=== PATIENT | male | born 1950 | race Caucasian/White ===

== ENCOUNTER 2020-10-30 09:50 | Outpatient (REF) | payer MEDICARE, BC, SELFPAY ==
[2020-10-30 10:54] LABS: Blood Urea Nitrogen 22 mg/dL (9-16); Estimated Glomerular Filt Rate > 60
== END 2020-10-30 09:51 | disposition home or self-care (01) ==
LOC: HO.MDS 09:50
PROVIDERS: PCP Internal Medicine; Visit Provider Internal Medicine
DX: M81.0 Age-related osteoporosis without current pathological fracture (principal)
CPT/HCPCS: 82565; 84520; 96365; J3489

== ENCOUNTER → 2021-01-08 12:36 | Outpatient (REF) | payer MEDICARE, BC, SELFPAY ==
--- NOTE | 2021-01-08 12:41 | CA_ITS ---
Transthoracic Echocardiogram Patient (Last, First, Middle): Speedy Hernandez J Gender: Male Date of : 1950 Age: 70 Procedure Date: 01/08/2021 Procedure Type: Transthoracic Echocardiogram Location: OP Height: 182.88 cm Weight: 68.04 kg BSA: 1.89 m2 Heart Rate: bpm BP: 118 / 60 mmHg Ginner Helper: Referring MD: Dandre Dobbins MD Symptoms: NON-RHEUMATIC REGURGITATION, PULMONARY HYPERTENSION. Study Quality: Good ECG Rhythm: Sinus Conclusions: - Severely increased left ventricular cavity size. The left ventricular systolic function is normal. The visually estimated ejection fraction is between 60-65%. - Mildly increased right ventricular cavity size. - The left atrium is severely dilated. - There is a flail posterior mitral leaflet. There is severe mitral valve regurgitation. - Moderate pulmonary hypertension is present. Findings Left Ventricle Severely increased left ventricular cavity size. There is mildly increased left ventricular wall thickness. The left ventricular systolic function is normal. The visually estimated ejection fraction is between 60-65%. There is no evidence of regional wall motion abnormalities. E/E prime ratio is >15, consistent with elevated filling pressures. Evidence suggests grade II (moderate) diastolic dysfunction. Right Ventricle Mildly increased right ventricular cavity size. There is normal right ventricular systolic function. Atria The left atrium is severely dilated. Interatrial shunt cannot be excluded. The right atrium is mildly dilated. Aortic Valve There is a normal trileaflet aortic valve. There is no aortic valve stenosis. There is mild aortic valve regurgitation. Mitral Valve The mitral valve appears myxomatous. There is a flail posterior mitral leaflet. There is severe mitral valve regurgitation. The mitral regurgitation jet is directed anteriorly. There is no mitral valve stenosis. Pulmonic Valve The pulmonic valve was not well visualized. Tricuspid Valve Normal tricuspid valve structure. There is trace tricuspid valve regurgitation. The right ventricular systolic pressure is 48 mmHg. Moderate pulmonary hypertension is present. Great Vessels The aortic annulus, sinuses of valsalva, and asc aorta are normal in size. Venous The inferior vena cava is normal in size and collapses greater than 50% with inspiration. Pericardium/Pleural There is a small pericardial effusion. Prior Study Comparison Changes noted compared to prior study dated: 01/04/2020. Further increase in left ventricular size. Measurements 2D Linear Measurements IVSd: 1.20 0.6-0.9/0.6-1.0 cm LVIDd: 6.53 3.9-5.3/4.2-5.9 cm LVIDd Index: 3.46 2.4-3.2/2.2-3.1 cm/m2 LVIDs: 4.67 2.0-3.6 cm LVPWd: 1.22 0.7-1.1 cm Ao Root: 3.20 2.1-3.5 cm LA Diam: 6.30 2.7-3.8/3.0-4.0 cm LAIDs Index: 3.33 1.5-2.3 cm/m2 LV Mass: 456.01 67-162/88-224 g LV Mass Index: 241.28 43-95/49-115 g/m2 LVOT Diam: 2.20 3.0+(-)1.3 cm 2D Systolic Function EF 4C: 67.50 >55% EF 2C: 65.20 >55% EF BiP: 64.40 >55% Mitral Valve MV VTI: 0.80 MV Pk Buddy: 2.47 MV Mn Buddy: 1.65 MV Pk Grad: 24.00 MV Mn Grad: 17.00 MV Pk E: 1.33 MV PK A: 0.59 MV Decel Time: 88.00 E/A: 2.20 E'Lateral: 12.20 E'Medial: 5.80 E/E' Med: 22.90 E/E' Lat: 10.90 PHT: 26.00 MVA PHT: 8.46 Decel Titus: 15.15 MR Vol - PW Dopp: 64.26 MR VTI: 1.19 MR ERO: 54.00 MR Alias Buddy: 0.38 MR RAD: 0.90 Aortic Valve AoV Pk Buddy: 1.20 AoV Mn Buddy: 0.77 AoV VTI: 0.28 AoV Pk Grad: 6.00 Aov Mn Grad: 3.00 LVOT LVOT Diam: 2.20 LVOT Area: 3.80 Diastolic Function MV Pk E: 1.33 MV Pk A: 0.59 E/A: 2.20 E'Medial: 5.80 E/E' Med: 22.90 E' Laterial: 12.20 E/E' Lat: 10.90 Tricuspid Valve TR Pk Buddy: 3.18 TR Pk Grad: 40.00 RA Press: 8.00 RVSP: 48.00 Great Vessels Aorta Ao Root-2D: 3.20 2.0-3.7 cm Ao Asc: 3.30 2.1-3.4 cm Pulmonary Valve PV Pk Buddy: 0.80 Peak PV Grad: 3.00 Updated in Other Vendor System with Status of Final Dandre Dobbins MD electronically signed on 01/09/2021 11:40:37 AM with status of Final
== END ==
LOC: HO.CARD 12:36
PROVIDERS: Visit Provider Internal Medicine
DX: I34.0 Nonrheumatic mitral (valve) insufficiency (principal); I27.20 Pulmonary hypertension, unspecified
CPT/HCPCS: 93306

== ENCOUNTER → 2021-02-07 12:18 | Outpatient (BNVA) | payer MEDICARE, BC, SELFPAY | PROVIDERS: PCP Internal Medicine; Visit Provider Internal Medicine | DX: I34.1 Nonrheumatic mitral (valve) prolapse (principal); I34.0 Nonrheumatic mitral (valve) insufficiency; I27.20 Pulmonary hypertension, unspecified | CPT/HCPCS: 93005; 99212 ==

== ENCOUNTER 2021-04-15 10:26 | Outpatient (REF) | payer MEDICARE, BC, SELFPAY ==
[2021-04-15 10:40] LABS: MANUAL DIFF FLAG NO
[2021-04-15 11:08] LABS: Basophils Percent Auto 0.8 % (0-2); Eosinophils Absolute Auto 0.3 X10*3/uL (0.0-0.4); Hematocrit 45.1 % (42-52); Hemoglobin 14.5 g/dl (14.0-18.0); Imm Gran Abs Auto 0.01 X10*3/uL (0.00-0.03); Imm Gran Pct Auto 0.2 % (0.0-0.4); Lymphocytes Absolute Auto 1.7 X10*3/uL (1.2-4.9); Lymphocytes Percent Auto 34.8 % (20-40); Mean Corpuscular HGB Conc 32.2 g/dl (31.0-36.0); Mean Corpuscular Hemoglobin 28.8 pg (27.0-33.0); Mean Corpuscular Volume 89.7 fL (80-98); Mean Platelet Volume 10.7 fL (9.4-12.4); Monocytes Absolute Auto 0.5 X10*3/uL (0.1-1.2); Monocytes Percent Auto 9.8 % (2-11); Neutrophils Absolute Auto 2.5 X10*3/uL (2.0-8.3); Neutrophils Percent Auto 49.4 % (45-73); Platelet Count 153 X10*3/uL (160-400); Red Blood Count 5.03 X10*6/uL (4.60-5.80); Red Cell Distribution Width 13.4 % (11.0-16.0)
[2021-04-15 11:42] LABS: Glucose Urine UA NEG (NEG); Leukocyte Esterase Urine NEG (NEG); Nitrite Urine NEG (NEG); Specific Gravity - Urine 1.025 (1.005-1.025); Urine Blood NEG (NEG); Urine Ketones NEG (NEG); Urine Protein NEG (NEG-TRACE)
[2021-04-15 11:54] LABS: Appearance Urine CLEAR; Color Urine YELLOW
[2021-04-15 12:10] LABS: Alanine Aminotransferase 15 U/L (0-40); Albumin Level 4.4 g/dL (3.5-5.0); Alkaline Phosphatase 66 U/L (39-117); Anion Gap 12 (12-20); Aspartate Amino Transferase 22 U/L (5-37); Bilirubin Total 0.9 mg/dL (0.0-1.0); Blood Urea Nitrogen 18 mg/dL (9-16); Calcium 8.9 mg/dL (8.4-10.2); Carbon Dioxide 28 mmol/L (22-29); Chloride 107 mmol/L (96-108); Cholesterol 221 mg/dL; Estimated Glomerular Filt Rate > 60; Glucose Fasting 92 mg/dL (60-99); HDL Cholesterol 50 mg/dL; LDL Cholesterol Calculated 157 mg/dl; Potassium 4.4 mmol/L (3.3-5.1); Sodium 143 mmol/L (135-145); Total Protein 6.9 g/dL (6.5-8.0); Triglycerides 74 mg/dL
[2021-04-15 12:19] LABS: PSA,Total (Free>4and<10) 1.31 ng/mL (0.00-4.00); Vitamin D 25-OH Total 39.8 ng/mL (>30)
== END 2021-04-15 10:27 | disposition home or self-care (01) ==
LOC: HO.LNP 10:26
PROVIDERS: Visit Provider Internal Medicine
DX: E78.00 Pure hypercholesterolemia, unspecified (principal); M81.0 Age-related osteoporosis without current pathological fracture; R79.89 Other specified abnormal findings of blood chemistry; E55.9 Vitamin D deficiency, unspecified; Z12.5 Encounter for screening for malignant neoplasm of prostate
CPT/HCPCS: 80053; 80061; 81003; 82306; 84153; 85025

== ENCOUNTER → 2021-07-18 11:16 | Outpatient (BNVA) | payer MEDICARE, BC, SELFPAY | PROVIDERS: PCP Internal Medicine; Visit Provider Internal Medicine | CPT/HCPCS: Q3014 ==

== ENCOUNTER → 2021-08-15 12:30 | Outpatient (BNVA) | payer MEDICARE, BC, SELFPAY | PROVIDERS: PCP Internal Medicine; Referring Provider Internal Medicine; Visit Provider Internal Medicine | DX: I34.0 Nonrheumatic mitral (valve) insufficiency (principal); I34.1 Nonrheumatic mitral (valve) prolapse; I27.20 Pulmonary hypertension, unspecified | CPT/HCPCS: 99212 ==

== ENCOUNTER 2021-11-14 09:46 | Inpatient (IN) | payer MEDICARE, BC, SELFPAY ==
[2021-11-14] VITALS (13 sets, daily range): BP systolic 112–144; BP diastolic 65–99; PULSE 83–152; RESP 16–24; TEMP 36.5–37; O2SAT 90–98; BMI 20.3
--- NOTE | ~2021-11-14 | XR_ITS ---
EXAMINATION: XR CHEST CLINICAL INFORMATION: Shortness of breath COMPARISON: None TECHNIQUE: AP portable view of the chest was obtained. FINDINGS: There are bilateral regions of airspace disease most prominent at the lung bases as well as what appeared be small pleural effusions. The cardiopericardial silhouette is enlarged. No evidence of pulmonary edema. No pneumothorax. XR/XR chest 1V IMPRESSION: Cardiomegaly without pulmonary edema. Bilateral regions of airspace disease consistent with pneumonia or atelectatic change. Bilateral pleural effusions right greater than left.
--- NOTE | 2021-11-14 10:20 | ECG_ITS ---
Test Reason : SOB Blood Pressure : / mmHG Vent. Rate : 148 BPM Atrial Rate : 000 BPM P-R Int : 000 ms QRS Dur : 092 ms QT Int : 320 ms P-R-T Axes : 000 094 025 degrees QTc Int : 502 ms Atrial fibrillation with rapid ventricular response Rightward axis Biventricular hypertrophy Abnormal ECG When compared with ECG of 10-APR-2020 15:38, Atrial fibrillation has replaced Sinus rhythm Vent. rate has increased BY 76 BPM Questionable change in QRS axis Nonspecific T wave abnormality now evident in Inferior leads Nonspecific T wave abnormality now evident in Anterolateral leads Referred By: Vanna Patrick Electronically Signed By:AISLINN FORBES MD
--- NOTE | 2021-11-14 10:39 | ED.SOB ---
HPI - SOB/Dyspnea General Chief Complaint: Dyspnea Stated Complaint: diff breathing Time Seen by Provider: 11/14/21 10:12 Source: patient Mode of arrival: ambulatory Limitations: no limitations History of Present Illness HPI Narrative: 70-year-old male with history of moderate mitral regurgitation, pulmonary hypertension, vitamin-D deficiency here with reports of shortness of breath over the last 2 weeks. Initially this was with exertion but now is occurring at rest. There is no associated cough, fever, chest pain or palpitations. Is also having some lower extremity swelling bilaterally with no pain. He denies any weight gain. Related Data Home Medications Medication Instructions Recorded Confirmed fluocinonide-emollient 0.05 % 1 appl TOPICAL BID 02/07/21 11/14/21 topical cream multivitamin 1 tab PO DAILY 11/14/21 11/14/21 Previous Rx's Medication Instructions Recorded calcium carbonate 600 mg calcium 600 mg PO DAILY 30 Days #30 tab 06/10/21 (1,500 mg) tablet Allergies Allergy/AdvReac Type Severity Reaction Status Date / Time No Known Allergies Allergy Verified 08/15/21 12:48 [No Known Allergies*] Review of Systems Review of Systems: Yes all other systems are reviewed and are negative Constitutional: Constitutional: Reports no additional constitutional complaints, Denies body ache(s), Denies chills, Denies fever(s), Denies headache(s) and Denies weakness Eyes: Eyes: Reports no additional eye complaints and Denies change in vision ENT: Reports system reviewed and no additional complaints, except as documented, Denies dizziness, Denies headache(s), Denies nasal congestion, Denies nasal discharge and Denies neck pain Cardiovascular: Cardiovascular: Reports no additional cardiovascular complaints, Denies chest pain, Denies leg edema and Reports dyspnea Respiratory: Respiratory: Reports no additional respiratory complaints, Denies cough and Reports dyspnea Gastrointestinal: Gastrointestinal: Reports no additional gastrointestinal complaints, Denies abdominal pain, Denies diarrhea, Denies nausea and Denies vomiting Genitourinary: Genitourinary: Denies urinary incontinence Musculoskeletal: Musculoskeletal: Reports no additional musculoskeletal complaints, Denies back pain, Denies arthralgias, Denies joint swelling, Denies neck pain, Denies numbness and Denies tingling Integumentary/Breasts: Skin/Breast: Reports system reviewed and no additional complaints, except as docu and Denies rash Neurologic: Reports system reviewed and no additional complaints, except as documented, Denies Abnormal speech present, Denies dizziness, Denies headache(s), Denies numbness, Denies tingling and Denies weakness PMFSH Past Medical History Attestation statement: The following information was validated with the patient. Source: old records reviewed and nursing notes reviewed Medical History Myxomatous mitral valve Nonrheumatic mitral valve regurgitation Osteoporosis Pulmonary hypertension Vitamin D deficiency Surgical History No history of previous surgery Family History Family History Father No problems noted. Mother No problems noted. Social History Social History Patient Tobacco Use Status: Never used Tobacco Use of substances other than those prescribed or required for medical reasons: No Advance Directives: Yes Advance Directives Information Provided: No Advance Directives on File: No Physical Exam Vital Signs: Vital Signs: Last Vital Signs Temp 98.6 F 11/14/21 10:00 Pulse 110 H 11/14/21 14:35 Resp 16 11/14/21 14:35 BP 120/86 11/14/21 14:35 Pulse Ox 96 11/14/21 14:35 BMI result Body Mass Index 20.3 Const: General: cooperative, healthy appearing, comfortable and no acute distress Orientation/consciousness: patient oriented x3 Limitations: no limitations HENMT: Head: Yes normal to inspection Ears: hearing grossly normal bilaterally General nose exam: Normal external nose present Face and sinus: Yes normal facial exam Mouth: Normal oral and palatal mucosa present Throat: Yes posterior oropharynx normal Eyes: General: appearance normal, both eyes and all related structures Pupils: Equal, round and reactive pupils present Neck: Neck: Yes normal visual inspection Chest: Chest palpation & inspection: normal inspection of the chest Resp: Other: Mild tachypnea with a rate of 22 Auscultation: clear to auscultation bilaterally Cardio: Rate: regular rate and tachycardic Rhythm: abnormal rhythm irregularly irregular Peripheral pulses: Peripheral pulses 2+ throughout GI: Inspection: Yes normal to inspection Palpation (GI): Soft to palpation and nontender Auscultation: normal bowel sounds Back/Spine/Pelvis: Thoracic/Lumbar Spine: thoracic and lumbar spine normal to inspection Skin: General skin exam: no rashes or lesions noted Neuro: General: patient oriented x3, no focal motor deficits and normal sensation to monofilament Cranial nerves: Yes Equal, round and reactive pupils present Cognition (Neuro): normal cognition Speech: No Abnormal speech present Gait exam (Neuro): Normal gait present Motor exam (neuro): 5/5 motor strength present throughout Extrem: Other: 1+ Pitting edema to bilateral lower ankles. No calf pain. Palpable distal pulses General: Yes normal to inspection and Yes no calf tenderness Course Course Course Narrative: 70-year-old male here with reports of shortness of breath over the last 2 weeks initially with exertion now a rest. Also some lower extremity swelling with no pain. No waking, cough, fevers, chills, chest pain. On arrival the patient is tachycardic with a rate of 148. It is irregularly irregular. He also has some pitting edema in the bilateral lower ankles 1+ with no calf pain or swelling. Patient will need labs, EKG, chest x-ray, COVID screen. EKG is consistent with AFib with RVR with a rate of 148. Patient has no history of same. Will give 10 mg of IV Cardizem and reassess 1100-chest x-ray shows cardiomegaly, bilateral regions of airspace disease consistent with pneumonia or atelectasis with bilateral pleural effusions right greater the left. Exam is not consistent with pneumonia. There is no fever, productive cough, leukocytosis. This is likely secondary to CHF. Plan for dose of IV Lasix once labs have resulted. Patient heart rate now 120 after 10 mg of IV Cardizem. 1240-troponin is indeterminate. No chest pain. No EKG changes concerning for ACS. Plan for repeat 3 hour troponin. Labs show elevated BNP and LFTs likely secondary to underlying congestive heart failure. Patient's heart rate is now 120-130 despite to IV pushes of Cardizem. Plan for Cardizem drip. Case was discussed with Melissa THURMAN who accepted admission. MDM - SOB/Dyspnea Medical Records Attestation: I reviewed the patient's medical records. Lab Data Attestation: I reviewed the patient's lab results. Result diagrams: 11/14/21 10:45 11/14/21 10:45 Labs: Lab Results 11/14/21 11/14/21 11/14/21 Range/Units 10:45 10:45 10:45 WBC 7.9 (4.8-10.8) X10*3/uL RBC 5.07 (4.60-5.80) X10*6/uL Hgb 14.7 (14.0-18.0) g/dl Hct 45.6 (42.0-52.0) % MCV 89.9 (80.0-98.0) fL MCH 29.0 (27.0-33.0) pg MCHC 32.2 (31.0-36.0) g/dl RDW 14.9 (11.0-16.0) % Plt Count 168 (160-400) X10*3/uL MPV 11.6 (9.4-12.4) fL Immature Gran % (Auto) 0.4 (0.0-0.4) % Neut % (Auto) 75.8 H (45-73) % Lymph % (Auto) 13.3 L (20-40) % [place] % (Auto) 9.1 (2-11) % Eos % (Auto) 0.5 (0-4) % Baso % (Auto) 0.9 (0-2) % Lymph # (Auto) 1.1 L (1.2-4.9) X10*3/uL [place] # (Auto) 0.7 (0.1-1.2) X10*3/uL Eos # (Auto) 0.0 (0.0-0.4) X10*3/uL Baso # (Auto) 0.1 (0.0-0.2) X10*3/uL Abs Immat Gran (auto) 0.03 (0.00-0.03) X10*3/uL Absolute Neuts (auto) 6.0 (2.0-8.3) x10*3/uL Absolute Nucleated RBC 0.000 (0.0-0.012) X10*3/uL Nucleated RBC % (auto) 0.0 (0.0-0.2) /100WBC PT 16.2 H (9.9-13.0) SEC INR 1.4 H (0.9-1.1) Sodium 142 (135-145) mmol/L Potassium 4.3 (3.3-5.1) mmol/L Chloride 112 H (96-108) mmol/L Carbon Dioxide 20 L (22-29) mmol/L Anion Gap 14 (12-20) BUN 28 H (9-16) mg/dL Creatinine 1.24 (0.5-1.4) mg/dL Estim Creat Clear Calc 51.8 Estimated GFR 57 Random Glucose 151 H (60-115) mg/dL Calcium 9.2 (8.4-10.2) mg/dL Magnesium 2.3 (1.6-2.6) mg/dL Total Bilirubin 1.9 H (0.0-1.0) mg/dL Direct Bilirubin 0.7 H (0.0-0.5) mg/dL AST 41 H D (5-37) U/L ALT 48 H (0-40) U/L Alkaline Phosphatase 77 (39-117) U/L Troponin I High Sens (<3.5-35.0) ng/L B-Natriuretic Peptide (<100) pg/mL Total Protein 6.4 L (6.5-8.0) g/dL Albumin 3.9 (3.5-5.0) g/dL COVID-19 (JULIEN) (Negative) COVID-19 Clin Com 11/14/21 11/14/21 Range/Units 10:45 10:46 WBC (4.8-10.8) X10*3/uL RBC (4.60-5.80) X10*6/uL Hgb (14.0-18.0) g/dl Hct (42.0-52.0) % MCV (80.0-98.0) fL MCH (27.0-33.0) pg MCHC (31.0-36.0) g/dl RDW (11.0-16.0) % Plt Count (160-400) X10*3/uL MPV (9.4-12.4) fL Immature Gran % (Auto) (0.0-0.4) % Neut % (Auto) (45-73) % Lymph % (Auto) (20-40) % [place] % (Auto) (2-11) % Eos % (Auto) (0-4) % Baso % (Auto) (0-2) % Lymph # (Auto) (1.2-4.9) X10*3/uL [place] # (Auto) (0.1-1.2) X10*3/uL Eos # (Auto) (0.0-0.4) X10*3/uL Baso # (Auto) (0.0-0.2) X10*3/uL Abs Immat Gran (auto) (0.00-0.03) X10*3/uL Absolute Neuts (auto) (2.0-8.3) x10*3/uL Absolute Nucleated RBC (0.0-0.012) X10*3/uL Nucleated RBC % (auto) (0.0-0.2) /100WBC PT (9.9-13.0) SEC INR (0.9-1.1) Sodium (135-145) mmol/L Potassium (3.3-5.1) mmol/L Chloride (96-108) mmol/L Carbon Dioxide (22-29) mmol/L Anion Gap (12-20) BUN (9-16) mg/dL Creatinine (0.5-1.4) mg/dL Estim Creat Clear Calc Estimated GFR Random Glucose (60-115) mg/dL Calcium (8.4-10.2) mg/dL Magnesium (1.6-2.6) mg/dL Total Bilirubin (0.0-1.0) mg/dL Direct Bilirubin (0.0-0.5) mg/dL AST (5-37) U/L ALT (0-40) U/L Alkaline Phosphatase (39-117) U/L Troponin I High Sens 23.4 (<3.5-35.0) ng/L B-Natriuretic Peptide 813 H (<100) pg/mL Total Protein (6.5-8.0) g/dL Albumin (3.5-5.0) g/dL COVID-19 (JULIEN) Negative (Negative) COVID-19 Clin Com See Note Imaging Data Chest x-ray: Attestation: I personally reviewed and interpreted this imaging study as follows: Radiologist's impression: [address] [address] XRay Report Signed Patient: Speedy Hernandez MR#: [id number] : 1950 Acct:[id number] Age/Sex: 70 / M ADM Date: 11/14/21 Loc: [facility].ED Attending Dr: Ordering Physician: Vanan Patrick NP Date of Service: 11/14/21 Procedure(s): XR chest 1V Accession Number(s): [id number] cc: Vanna Patrick NP~ EXAMINATION: XR CHEST CLINICAL INFORMATION: Shortness of breath COMPARISON: None TECHNIQUE: AP portable view of the chest was obtained. FINDINGS: There are bilateral regions of airspace disease most prominent at the lung bases as well as what appeared be small pleural effusions. The cardiopericardial silhouette is enlarged. No evidence of pulmonary edema. No pneumothorax. XR/XR chest 1V IMPRESSION: Cardiomegaly without pulmonary edema. ? Bilateral regions of airspace disease consistent with pneumonia or atelectatic change. ? Bilateral pleural effusions right greater than left. ECG Data Attestation: I personally reviewed and interpreted this ECG as follows: ECG interpretation date: 11/14/21 ECG interpretation time: 10:27 Interpretation: AFib with RVR with a rate 148, normal QRS, normal QT Critical Care Time Critical Care Time Critical Care Time: Yes Total Critical Care Time: 30 Attestation: Multiple re-evaluations for tachycardia Discharge Plan Discharge Clinical Impression: Congestive heart failure, A-fib Patient Disposition: Admitted As Inpatient
[2021-11-14] MEDS: dilTIAZem HCL 50 MG/10 ML VIAL 10 MG IVPUSH ×2 (10:50→11:32)
[2021-11-14 10:51] LABS: MANUAL DIFF FLAG NO
[2021-11-14 10:52] LABS: Basophils Absolute Auto 0.1 X10*3/uL (0.0-0.2); Basophils Percent Auto 0.9 % (0-2); Eosinophils Percent Auto 0.5 % (0-4); Hematocrit 45.6 % (42.0-52.0); Hemoglobin 14.7 g/dl (14.0-18.0); Imm Gran Abs Auto 0.03 X10*3/uL (0.00-0.03); Imm Gran Pct Auto 0.4 % (0.0-0.4); Lymphocytes Absolute Auto 1.1 X10*3/uL (1.2-4.9); Lymphocytes Percent Auto 13.3 % (20-40); Mean Corpuscular HGB Conc 32.2 g/dl (31.0-36.0); Mean Corpuscular Volume 89.9 fL (80.0-98.0); Mean Platelet Volume 11.6 fL (9.4-12.4); Monocytes Absolute Auto 0.7 X10*3/uL (0.1-1.2); Monocytes Percent Auto 9.1 % (2-11); Neutrophils Percent Auto 75.8 % (45-73); Platelet Count 168 X10*3/uL (160-400); Red Blood Count 5.07 X10*6/uL (4.60-5.80); Red Cell Distribution Width 14.9 % (11.0-16.0); White Blood Count 7.9 X10*3/uL (4.8-10.8)
--- NOTE | 2021-11-14 10:52 | PC.NURSE ---
Pt reports sob x 1 week, also reports cough with white sputum. no fevers. denies dizziness. skin pwd. rapid a fib on tele rate up to 150. Speech is clear. speaking full sentences. labs sent, iv established and cardizem given as ordered, rate now noted in 120s
--- NOTE | 2021-11-14 10:55 | PC.NURSE ---
per pt new left lower ext swelling, pitting +2
--- NOTE | 2021-11-14 10:59 | PHA.MEDREC ---
Pharmacy Consult ? Medication Reconciliation Pharmacy has completed the medication reconciliation. Brittanie WolfeD BCPS
[2021-11-14 11:04] LABS: INTERNATIONAL NORM RATIO 1.4 (0.9-1.1); Prothrombin Time 16.2 SEC (9.9-13.0)
[2021-11-14 11:10] LABS: COVID-19 Test Negative (Negative); IDNOW Serial# 08D9AD1C
[2021-11-14 11:14] LABS: Alanine Aminotransferase 48 U/L (0-40); Albumin Level 3.9 g/dL (3.5-5.0); Alkaline Phosphatase 77 U/L (39-117); Anion Gap 14 (12-20); Aspartate Amino Transferase 41 U/L (5-37); Bilirubin Direct 0.7 mg/dL (0.0-0.5); Bilirubin Total 1.9 mg/dL (0.0-1.0); Blood Urea Nitrogen 28 mg/dL (9-16); Calcium 9.2 mg/dL (8.4-10.2); Carbon Dioxide 20 mmol/L (22-29); Chloride 112 mmol/L (96-108); Creatinine Clr Calc Pharmacy 51.8; Estimated Glomerular Filt Rate 57; Glucose Random 151 mg/dL (60-115); Magnesium 2.3 mg/dL (1.6-2.6); Potassium 4.3 mmol/L (3.3-5.1); Sodium 142 mmol/L (135-145); Total Protein 6.4 g/dL (6.5-8.0)
[2021-11-14 11:21] LABS: B Type Natriuretic Peptide 813 pg/mL (<100); Troponin-I High Sensitivity 23.4 ng/L (<3.5-35.0)
[2021-11-14] MEDS: Furosemide 40 MG/4 ML VIAL IVPUSH (11:32)
[2021-11-14] MEDS: dilTIAZem HCL 125 MG in 0.9 % Sodium Chloride 100 ML 10 MG IVCONT (13:13)
--- NOTE | 2021-11-14 13:38 | PM.IMHP ---
History of Present Illness Date of Service: 11/14/21 Chief Complaint: Shortness of breath 70-year-old male with history o mixamatous mitral valve, moderate mitral regurgitation, pulmonary hypertension, vitamin-D deficiency he sees Dr. Dobbins and last seen in the office in July. He presents with dyspnea, ongoing for nearly 2 weeks with non-exertional and exertional. He has PND and orthopnea, and slighly swelling in the legs. He repors no palpiation or chest pain and yet noted to be in AFIB with RVR, HR in 130 and normal blood pressure. BNP level is around 800, CXR shows moderate bilateral pelural effusion. He has received IV cardizem bolus with HR still on high side and is being initiated on cardizem drip. Review of Systems Review of Systems: Gen: no fever Resp: + sob, no cough CV: no chest, +[place], leg edema GI: No n/v, no abd pain Neuro: No confusion Yes all other systems are reviewed and are negative [facility] Medical History Myxomatous mitral valve Nonrheumatic mitral valve regurgitation Osteoporosis Pulmonary hypertension Vitamin D deficiency Family History Father No problems noted. Mother No problems noted. Surgical History No history of previous surgery Social History Household Members: Family Housing: House Do you presently have visiting nurse or other home services: No Patient Tobacco Use Status: Never used Tobacco Use of substances other than those prescribed or required for medical reasons: No Currently Displaying Signs/Symptoms of Drug Intoxication Withdrawal: No Any prior treatment program specific to substance use: No Have you been hit, kicked, punched, or otherwise hurt by someone within the past year? If so, by whom?: No Do you feel safe in your current relationship?: No Is there a partner from a previous relationship who is making you feel unsafe now?: No Are you made to feel afraid or neglected: No Spiritual Healthcare Practices: church Advance Directives: Yes Advance Directives Information Provided: No Advance Directives on File: No Advance Directives Date on File: 11/13/21 Do you have thoughts of harming others: None Do you have a plan to hurt others: No Plan Recently lost weight without trying: No Eating poorly because of decreased appetite: No Nutrition Risks: No Nutritional Risk Poor oral hygiene: No Meds Allergies Allergy/AdvReac Type Severity Reaction Status Date / Time No Known Allergies Allergy Verified 08/15/21 12:48 [No Known Allergies*] Active Medications: Current Medications Acetaminophen (Acetaminophen 325 Mg Tablet) 650 mg PO Q6H PRN PRN Reason: Pain, Mild (Pain Scale 1-3) Diltiazem HCl 125 mg/ Sodium (Chloride) 125 mls @ 0 mls/hr IVCONT .Q0M [facility]; Protocol Last Admin: 11/14/21 13:13 Dose: 10 mg/hr, 10 mls/hr Documented by: Melatonin (Melatonin 3 Mg Tablet) 6 mg PO BEDTIME PRN PRN Reason: Insomnia Pharmacy Consult (Consult Rx Perform Med Rec) 1 each MISCELLANE ONCE PRN PRN Reason: Consult order Sodium Chloride (0.9 % Sodium Chloride Flush 3 Ml Syringe) 3 [facility] Home Medications Medication Instructions Recorded Confirmed Last Taken Type fluocinonide-emollient 0.05 % 1 appl TOPICAL BID 02/07/21 11/14/21 11/14/21 History topical cream multivitamin 1 tab PO DAILY 11/14/21 11/14/21 11/13/21 History Physical Exam Vital Signs and Narrative: Vital Signs: Last Vital Signs Temp 98.6 F 11/14/21 10:00 Pulse 127 H 11/14/21 13:18 Resp 16 11/14/21 13:18 BP 129/82 11/14/21 13:18 Pulse Ox 98 11/14/21 13:18 BMI result Body Mass Index 20.3 Const: Other: Constitutional: Alert, in no distress, Mental Status: Oriented to person, place and time. Eyes: Pupils are equal, round and reactive to light. Ear, Nose and Throat: Oropharynx clear, mucous membranes moist. Ears and nose without eformities. Trachea midline. Respiratory: Clear to auscultation. No wheezing, rales or rhonchi. Cardiovascular: S1 S2, iregular iregular, No murmurs, rubs or gallops. 1+ pedal edema Gastrointestinal: Abdomen soft, non-tender, non-distended. Normal bowel sounds.? Neurologic: Cranial nerves II-XII grossly intact. No focal neurological deficits. Moves all extremities spontaneously.? Skin: No rashes or lesions.? Musculoskeletal: No cyanosis or clubbing. Psychiatric: Normal mood and affect? Results Labs CBC and Chem 7: 11/14/21 10:45 11/15/21 05:47 Labs: Laboratory Results - last 24 hr 11/14/21 11/14/21 11/14/21 10:45 10:45 10:45 MCV 89.9 MCH 29.0 MCHC 32.2 RDW 14.9 Plt Count 168 MPV 11.6 Immature Gran % (Auto) 0.4 Neut % (Auto) 75.8 H Lymph % (Auto) 13.3 L [place] % (Auto) 9.1 Eos % (Auto) 0.5 Baso % (Auto) 0.9 Lymph # (Auto) 1.1 L [place] # (Auto) 0.7 Eos # (Auto) 0.0 Baso # (Auto) 0.1 Abs Immat Gran (auto) 0.03 Absolute Neuts (auto) 6.0 Absolute Nucleated RBC 0.000 Nucleated RBC % (auto) 0.0 PT 16.2 H INR 1.4 H Anion Gap 14 Estim Creat Clear Calc 51.8 Estimated GFR 57 Random Glucose 151 H Calcium 9.2 Magnesium 2.3 Total Bilirubin 1.9 H Direct Bilirubin 0.7 H AST 41 H D ALT 48 H Alkaline Phosphatase 77 Troponin I High Sens B-Natriuretic Peptide Total Protein 6.4 L Albumin 3.9 COVID-19 (JULIEN) COVID-19 Clin Com 11/14/21 11/14/21 10:45 10:46 MCV MCH MCHC RDW Plt Count MPV Immature Gran % (Auto) Neut % (Auto) Lymph % (Auto) [place] % (Auto) Eos % (Auto) Baso % (Auto) Lymph # (Auto) [place] # (Auto) Eos # (Auto) Baso # (Auto) Abs Immat Gran (auto) Absolute Neuts (auto) Absolute Nucleated RBC Nucleated RBC % (auto) PT INR Anion Gap Estim Creat Clear Calc Estimated GFR Random Glucose Calcium Magnesium Total Bilirubin Direct Bilirubin AST ALT Alkaline Phosphatase Troponin I High Sens 23.4 B-Natriuretic Peptide 813 H Total Protein Albumin COVID-19 (JULIEN) Negative COVID-19 Clin Com See Note Imaging Radiologist's Impressions: Impressions Chest X-Ray 11/14/21 10:50 IMPRESSION: Cardiomegaly without pulmonary edema. Bilateral regions of airspace disease consistent with pneumonia or atelectatic change. Bilateral pleural effusions right greater than left. Assessment and Plan (1) A-fib: Status: Acute (2) Congestive heart failure: Status: Acute (3) Pulmonary hypertension: Status: Acute 70/ ma with history of myxomatous mitral valve, mitral regurgiation pulmonary HTN and here with new onset AFIB with associated heart failure. 1 New AFIB likely valvular type, [id number] = 4, --rate control with IV cardizem, get echo, cardiology consult, Lovenox for anticoagulation and liklye coumadin for longter if NOAC not an option given valvular disease. 2. Heart failure--unspecified at this point, will get an echo to further categorized. IV Lasix, follow electrolytes 3. Pleural effusion--likely related to heart failure---IV Lasix and reassess and if persist beyond heart failure, will need thoracentesis 4. Quality Stroke Does the patient have a stroke diagnosis?: No VTE Prior VTE?: No VTE Risk Level:: Medical - moderate - high VTE Device Contraindication: Treatment Not Indicated VTE Drug Contraindication: N/A - Med Ordered
[2021-11-14] MEDS: Enoxaparin Sodium 80 MG/0.8 ML SYRINGE 70 MG SUBCUT (14:40)
[2021-11-14 14:55] LABS: Troponin-I High Sensitivity 28.2 ng/L (<3.5-35.0)
--- NOTE | 2021-11-14 16:34 | PC.NURSE ---
Pt remains alert and awake, continues on Cardizem 10mg/hr with heart from 100-115. Up to void as tolerated.
[2021-11-14] MEDS: dilTIAZem HCL 125 MG in 0.9 % Sodium Chloride 100 ML IVCONT (23:52)
[2021-11-15] VITALS (11 sets, daily range): BP systolic 106–133; BP diastolic 60–74; PULSE 92–128; RESP 12–20; TEMP 36.4–36.6; O2SAT 91–98; BMI 22.1
[2021-11-15] MEDS: Enoxaparin Sodium 80 MG/0.8 ML SYRINGE 70 MG SUBCUT ×2 (03:11→14:23)
[2021-11-15 07:15] LABS: Anion Gap 13 (12-20); Blood Urea Nitrogen 23 mg/dL (9-16); Calcium 8.1 mg/dL (8.4-10.2); Carbon Dioxide 26 mmol/L (22-29); Chloride 107 mmol/L (96-108); Creatinine Clr Calc Pharmacy 66.6; Estimated Glomerular Filt Rate > 60; Glucose Random 71 mg/dL (60-115); Potassium 3.5 mmol/L (3.3-5.1); Sodium 142 mmol/L (135-145)
--- NOTE | 2021-11-15 07:30 | CA_ITS ---
Transthoracic Echocardiogram Patient (Last, First, Middle): Speedy Hernandez J Gender: Male Date of : 1950 Age: 70 Procedure Date: 11/15/2021 Procedure Type: Transthoracic Echocardiogram Location: [facility] [place] Height: 182.88 cm Weight: 73.94 kg BSA: 1.95 m2 Heart Rate: bpm BP: 129 / 72 mmHg Technical Support 1 Software Engineer: CATRACHITO Pisano MD: Cam Kim MD Gin Operator: German Garcia MD Symptoms: heart failure and new afib Study Quality: Good ECG Rhythm: Atrial Fibrillation Conclusions: - 1. Moderately reduced LV systolic function with LVEF of 40-45% 2. Moderately dilated right ventricle with reduced systolic function 3. Severely enlarged left atrium 4. Severe eccentric mitral regurgitation secondary to flail posterior mitral leaflet 5. Moderately elevated right ventricular systolic pressure secondary to significant elevated right atrial pressures 6. Small pericardial effusion without tamponade Findings Left Ventricle Moderately increased left ventricular cavity size. There is normal left ventricular wall thickness. The left ventricular systolic function is moderately decreased. The visually estimated ejection fraction is between 40 45%. Diastolic function is indeterminate on the basis of available data. Right Ventricle Moderately increased right ventricular cavity size. There is mild to moderately decreased right ventricular systolic function. Atria The left atrium is severely dilated. There is no evidence of interatrial shunt. The right atrium is moderately dilated. Aortic Valve There is mild thickening of the aortic valve. There is no aortic valve stenosis. There is trace (trivial) aortic valve regurgitation. Mitral Valve The mitral valve appears myxomatous. There is severe anterior and posterior mitral leaflet thickening. There is a flail posterior mitral leaflet. There is severe mitral valve regurgitation. The mitral regurgitation jet is directed anteriorly. Pulmonic Valve The pulmonic valve is likely normal. There is trace to mild pulmonic valve regurgitation. Tricuspid Valve Normal tricuspid valve structure. There is mild tricuspid valve regurgitation. Significantly elevated right atrial pressure. Moderate pulmonary hypertension is present. Great Vessels All visible segments of the aorta are normal in size. The pulmonary artery was not well visualized. Venous The inferior vena cava is moderately dilated and does not collapse with inspiration. Pericardium/Pleural There is a small circumferential pericardial effusion. There is a small pleural effusion and a moderate left sided pleural effusion. Prior Study Comparison Changes noted compared to prior study dated: 01/08/2021. Biventricular systolic dysfunction, right atrial pressures are elevated Measurements 2D Linear Measurements IVSd: 1.18 0.6-0.9/0.6-1.0 cm LVIDd: 6.42 3.9-5.3/4.2-5.9 cm LVIDd Index: 3.29 2.4-3.2/2.2-3.1 cm/m2 LVIDs: 4.93 2.0-3.6 cm LVPWd: 1.04 0.7-1.1 cm Ao Root: 3.30 2.1-3.5 cm LA Diam: 5.80 2.7-3.8/3.0-4.0 cm LAIDs Index: 2.97 1.5-2.3 cm/m2 LV Mass: 395.58 67-162/88-224 g LV Mass Index: 202.86 43-95/49-115 g/m2 LVOT Diam: 2.00 3.0+(-)1.3 cm 2D Systolic Function EF 4C: 42.10 >55% EF 2C: 43.10 >55% EF BiP: 43.30 >55% Mitral Valve E'Medial: 6.53 Aortic Valve AoV Pk Buddy: 0.86 AoV Mn Buddy: 0.59 AoV VTI: 0.13 AoV Pk Grad: 3.00 Aov Mn Grad: 2.00 RONNA Cont.VTI: 2.17 LVOT LVOT Pk Buddy: 0.54 LVOT Mn Buddy: 0.36 LVOT VTI: 0.09 LVOT Pk Grad: 1.00 LVOT Mn Grad: 1.00 LVOT Diam: 2.00 LVOT Area: 3.14 Diastolic Function E'Medial: 6.53 Right Ventricle TAPSE (mm): 1.32 TVS' Buddy: 6.31 Tricuspid Valve TR Pk Buddy: 2.86 TR Pk Grad: 33.00 RA Press: 15.00 RVSP: 48.00 Great Vessels Aorta Ao Root-2D: 3.30 2.0-3.7 cm Ao Asc: 3.30 2.1-3.4 cm Updated in Other Vendor System with Status of Final German Garcia MD electronically signed on 11/15/2021 1:46:21 PM with status of Final
[2021-11-15] MEDS: Metoprolol Tartrate 25 MG TABLET PO ×3 (07:50→20:45)
--- NOTE | 2021-11-15 09:47 | P.PNIM_ITS ---
Subjective Subjective Date of Service: 11/15/21 Interval History: F/u AFIB, remains in afib but rate is controlled in 90s, stopped cardizem drip. Still with signficant MONCADA Review of Systems +MONCADA no palipation no fever, no cough Physical Exam Vital Signs: Vital Signs: Last Vital Signs Temp 97.5 F 11/15/21 08:00 Pulse 92 11/15/21 08:00 Resp 12 11/15/21 08:00 BP 120/74 11/15/21 08:00 Pulse Ox 95 11/15/21 08:00 BMI result Body Mass Index 22.1 General: AO X 3, no acute distress Resp: CTA bilateral CVS: iregular iregulr, 1+ pedal edema GI: +BS, NT, no distention Skin: No rash Neuro: motor grossly intact Psych: appropriate affect Objective Data Active Medications Acetaminophen (Acetaminophen 325 Mg Tablet) 650 mg PO Q6H PRN PRN Reason: Pain, Mild (Pain Scale 1-3) Enoxaparin Sodium (Enoxaparin Sodium 80 Mg/0.8 Ml Syringe) 70 mg 1 mg/kg (70 mg) SUBCUT Q12H [facility] Last Admin: 11/15/21 03:11 Dose: 70 mg Documented by: ANNELIESE Melatonin (Melatonin 3 Mg Tablet) 6 mg PO BEDTIME PRN PRN Reason: Insomnia Metoprolol Tartrate (Metoprolol Tartrate 25 Mg Tablet) 25 mg PO BID [facility]; Protocol Last Admin: 11/15/21 07:50 Dose: 25 mg Documented by: PRIYANK Multivitamins/Vitamin C (Multivitamin Tablet) 1 tab PO DAILY [facility] Non-Formulary Medication (Calcium Carbonate) 600 mg PO DAILY [facility] Non-Formulary Medication (Fluocinonide-Emollient) 1 appl TOPICAL BID [facility] Pharmacy Consult (Consult Rx Perform Med Rec) 1 each MISCELLANE ONCE PRN PRN Reason: Consult order Sodium Chloride (0.9 % Sodium Chloride Flush 3 Ml Syringe) 3 ml IVFLUSH QSHIFT [facility] Last Admin: 11/15/21 07:17 Dose: Not Given Documented by: PRIYANK Non-Admin Reason: IV Running Labs CBC & Chem 7: 11/14/21 10:45 11/15/21 05:47 Labs: Laboratory Results - last 24 hr 11/14/21 11/14/21 11/14/21 10:45 10:45 10:45 MCV 89.9 MCH 29.0 MCHC 32.2 RDW 14.9 Plt Count 168 MPV 11.6 Immature Gran % (Auto) 0.4 Neut % (Auto) 75.8 H Lymph % (Auto) 13.3 L [place] % (Auto) 9.1 Eos % (Auto) 0.5 Baso % (Auto) 0.9 Lymph # (Auto) 1.1 L [place] # (Auto) 0.7 Eos # (Auto) 0.0 Baso # (Auto) 0.1 Abs Immat Gran (auto) 0.03 Absolute Neuts (auto) 6.0 Absolute Nucleated RBC 0.000 Nucleated RBC % (auto) 0.0 PT 16.2 H INR 1.4 H Anion Gap 14 Estim Creat Clear Calc 51.8 Estimated GFR 57 Random Glucose 151 H Calcium 9.2 Magnesium 2.3 Total Bilirubin 1.9 H Direct Bilirubin 0.7 H AST 41 H D ALT 48 H Alkaline Phosphatase 77 Troponin I High Sens B-Natriuretic Peptide Total Protein 6.4 L Albumin 3.9 COVID-19 (JULIEN) COVID-Levels Beyond 11/14/21 11/14/21 11/14/21 10:45 10:46 14:26 MCV MCH MCHC RDW Plt Count MPV Immature Gran % (Auto) Neut % (Auto) Lymph % (Auto) [place] % (Auto) Eos % (Auto) Baso % (Auto) Lymph # (Auto) [place] # (Auto) Eos # (Auto) Baso # (Auto) Abs Immat Gran (auto) Absolute Neuts (auto) Absolute Nucleated RBC Nucleated RBC % (auto) PT INR Anion Gap Estim Creat Clear Calc Estimated GFR Random Glucose Calcium Magnesium Total Bilirubin Direct Bilirubin AST ALT Alkaline Phosphatase Troponin I High Sens 23.4 28.2 B-Natriuretic Peptide 813 H Total Protein Albumin COVID-19 (JULIEN) Negative COVID-Levels Beyond See Note 11/15/21 05:47 MCV MCH MCHC RDW Plt Count MPV Immature Gran % (Auto) Neut % (Auto) Lymph % (Auto) [place] % (Auto) Eos % (Auto) Baso % (Auto) Lymph # (Auto) [place] # (Auto) Eos # (Auto) Baso # (Auto) Abs Immat Gran (auto) Absolute Neuts (auto) Absolute Nucleated RBC Nucleated RBC % (auto) PT INR Anion Gap 13 Estim Creat Clear Calc 66.6 Estimated GFR > 60 Random Glucose 71 D Calcium 8.1 L D Magnesium Total Bilirubin Direct Bilirubin AST ALT Alkaline Phosphatase Troponin I High Sens B-Natriuretic Peptide Total Protein Albumin COVID-19 (JULIEN) COVID-19 Clin Com Assessment and Plan (1) Congestive heart failure: Status: Acute (2) A-fib: Status: Acute (3) Pulmonary hypertension: Status: Acute Assessment and Plan: 70/ ma with history of myxomatous mitral valve, mitral regurgiation pulmonary HTN and here with new onset AFIB with associated heart failure. 1 New AFIB likely valvular type, [id number] = 4, now rate controlled. Stopped IV cardizem -started on Metoprolol but maybe better of with CCB in light of pulmonary HTN 2. Heart failure--unspecified at this point, will get an echo to further categorized. IV Lasix, follow electrolytes.. 3. Pleural effusion--likely related to heart failure---IV Lasix? and reassess and if persist beyond heart failure, will need thoracentesis 4. Dyspnea with exertion likely combination of pulmonary HTN and CHF, P. effusion--addresing underlying causes. Quality Stroke Does the patient have a stroke diagnosis?: No VTE Prior VTE?: No VTE Risk Level:: Medical - moderate - high VTE Device Contraindication: Treatment Not Indicated VTE Drug Contraindication: N/A - Med Ordered
--- NOTE | 2021-11-15 09:50 | MHC.CM.PN ---
met with pt ,who lives with sister pt is independent car in parking lot dc plan home no servceis
[2021-11-15] MEDS: Multivitamin TABLET 1 TAB PO (10:05)
--- NOTE | 2021-11-15 10:35 | PM.CNCAR ---
History of Present Illness History of Present Illness Date of Service: 11/15/21 Requesting physician: [facility] Consult reason: atrial fibrillation and congestive heart failure Chief complaint: afib and heart failure with underlying severe MR Narrative: I was requested to see Speedy in cardiology consultation today for progressive symptoms suggestive congestive heart failure. He is a 70-year-old male who has seen Dr. Dobbins last seen in July who has severe mitral regurgitation secondary mitral valve prolapse and as per his note seems to have been telling the patient to have it evaluated further and possibly repair. However patient says that there was not enough push for this. His last echocardiogram in December had shown severely dilated left ventricle and mitral valve prolapse with severe mitral regurgitation due to poor coaptation of the posterior leaflet. He was advised for further workup in July, however patient at that time was feeling well and did not want anything done. About 2 weeks ago he started having symptoms of exertional shortness of breath. This progressively got worse and he subsequently also developed some orthopnea and leg edema. He therefore decided to come to the hospital after getting a booster start on Thursday. He was noted to be in heart failure with BNP in the 800 range is and noted to be in new onset atrial fibrillation with rapid ventricular response. Patient started on Cardizem drip was diuresed. Has had negative balance about 1700 cc. Feels better. However still appears to be mildly short of breath. Heart rate is not adequately controlled. Be started on Lovenox subcutaneous for DVT prophylaxis. He denies any chest pain, palpitations, lightheadedness, syncope. Review of Systems Constitutional: Constitutional: Reports no additional constitutional complaints Eyes: Eyes: Reports no additional eye complaints Cardiovascular: Cardiovascular: Denies chest pain, Reports leg edema, Denies lightheadedness, Denies Loss of Consciousness, Denies palpitations, Reports dyspnea on exertion and Reports orthopnea Respiratory: Respiratory: Reports no additional respiratory complaints and Reports dyspnea on exertion Gastrointestinal: Gastrointestinal: Reports no additional gastrointestinal complaints Genitourinary: Genitourinary: Reports no additional male genitourinary complaints Musculoskeletal: Musculoskeletal: Reports no additional musculoskeletal complaints Integumentary/Breasts: Skin/Breast: Reports system reviewed and no additional complaints, except as docu Neurologic: Reports system reviewed and no additional complaints, except as documented Psychiatric: Psychiatric: Reports no additional psychiatric complaints Endocrine: Endocrine: Reports no additional endocrine complaints and Denies palpitations Hematologic/Lymphatic: Hematologic/Lymphatic: Reports no additional hematologic/lymphatic complaints Allergic/Immunologic: Allergic/Immunologic: Reports no additional allergic/immunologic complaints [facility] Past Medical History Medical History Myxomatous mitral valve Nonrheumatic mitral valve regurgitation Osteoporosis Pulmonary hypertension Vitamin D deficiency Family History Family History Father No problems noted. Mother No problems noted. Surgical History Surgical History No history of previous surgery Social History Social History Household Members: Family Housing: House Do you presently have visiting nurse or other home services: No Patient Tobacco Use Status: Never used Tobacco Use of substances other than those prescribed or required for medical reasons: No Currently Displaying Signs/Symptoms of Drug Intoxication Withdrawal: No Any prior treatment program specific to substance use: No Have you been hit, kicked, punched, or otherwise hurt by someone within the past year? If so, by whom?: No Do you feel safe in your current relationship?: No Is there a partner from a previous relationship who is making you feel unsafe now?: No Are you made to feel afraid or neglected: No Spiritual Healthcare Practices: rastafarian Advance Directives: Yes Advance Directives Information Provided: No Advance Directives on File: No Advance Directives Date on File: 11/13/21 Do you have thoughts of harming others: None Do you have a plan to hurt others: No Plan Recently lost weight without trying: No Eating poorly because of decreased appetite: No Nutrition Risks: No Nutritional Risk Poor oral hygiene: No service: No Meds Allergies Allergy/AdvReac Type Severity Reaction Status Date / Time No Known Allergies Allergy Verified 08/15/21 12:48 [No Known Allergies*] Active Medications: Current Medications Acetaminophen (Acetaminophen 325 Mg Tablet) 650 mg PO Q6H PRN PRN Reason: Pain, Mild (Pain Scale 1-3) Calcium Carbonate (Calcium Carbonate 750 Mg Tab.Chew) 600 mg PO DAILY [facility] Enoxaparin Sodium (Enoxaparin Sodium 80 Mg/0.8 Ml Syringe) 70 mg 1 mg/kg (70 mg) SUBCUT Q12H [facility] Last Admin: 11/15/21 03:11 Dose: 70 mg Documented by: Melatonin (Melatonin 3 Mg Tablet) 6 mg PO BEDTIME PRN PRN Reason: Insomnia Multivitamins/Vitamin C (Multivitamin Tablet) 1 tab PO DAILY [facility] Last Admin: 11/15/21 10:05 Dose: 1 tab Documented by: Pharmacy Consult (Consult Rx Perform Med Rec) 1 each MISCELLANE ONCE PRN PRN Reason: Consult order Sodium Chloride (0.9 % Sodium Chloride Flush 3 Ml Syringe) 3 ml IVFLUSH QSHIFT [facility] Last Admin: 11/15/21 07:17 Dose: Not Given Documented by: Triamcinolone Acetonide (Triamcinolone Acet 0.5 % Cream 15 Gm Tube) 1 appl TOPICAL BID [facility] Home Medications Medication Instructions Recorded Confirmed Last Taken Type fluocinonide-emollient 0.05 % 1 appl TOPICAL BID 02/07/21 11/14/21 11/14/21 History topical cream multivitamin 1 tab PO DAILY 11/14/21 11/14/21 11/13/21 History Physical Exam Vital Signs: Vital Signs: Last Vital Signs Temp 97.5 F 11/15/21 08:00 Pulse 92 11/15/21 08:00 Resp 12 11/15/21 08:00 BP 120/74 11/15/21 08:00 Pulse Ox 95 11/15/21 08:00 BMI result Body Mass Index 22.1 Const: General: cooperative, comfortable, alert, awake and in distress mild and respiratory Nutritional Appearance: thin Orientation/consciousness: patient oriented x3 Limitations: no limitations HENMT: Head: Yes normocephalic and Yes atraumatic Neck: Neck: Yes trachea midline, Yes supple and Yes JVD Resp: Effort & Inspection: normal respiratory effort Auscultation: no wheezes and breath sounds absent bilateral (Bases) Cardio: Jugular venous distension: JVD Rate: tachycardic Rhythm: abnormal rhythm irregularly irregular Heart sounds: S1 normal heart sound present, S2 normal heart sound present, no click and Murmur heart sound present systolic holo, with radiation (To the base of the heart) and at the apex Peripheral pulses: Peripheral pulses 2+ throughout GI: Auscultation: normal bowel sounds Skin: General skin exam: no rashes or lesions noted Neuro: General: patient oriented x3 and no focal motor deficits Extrem: General: No clubbing, No cyanosis and Yes edema Psych: Appearance: grossly normal Affect: Anxious affect present Objective Labs and Meds Result diagrams: 11/14/21 10:45 11/15/21 05:47 Lab results: Laboratory Results - last 24 hr 11/14/21 11/14/21 11/14/21 10:45 10:45 10:45 WBC 7.9 RBC 5.07 Hgb 14.7 Hct 45.6 MCV 89.9 MCH 29.0 MCHC 32.2 RDW 14.9 Plt Count 168 MPV 11.6 Immature Gran % (Auto) 0.4 Neut % (Auto) 75.8 H Lymph % (Auto) 13.3 L [place] % (Auto) 9.1 Eos % (Auto) 0.5 Baso % (Auto) 0.9 Lymph # (Auto) 1.1 L [place] # (Auto) 0.7 Eos # (Auto) 0.0 Baso # (Auto) 0.1 Abs Immat Gran (auto) 0.03 Absolute Neuts (auto) 6.0 Absolute Nucleated RBC 0.000 Nucleated RBC % (auto) 0.0 PT 16.2 H INR 1.4 H Sodium 142 Potassium 4.3 Chloride 112 H Carbon Dioxide 20 L Anion Gap 14 BUN 28 H Creatinine 1.24 Estim Creat Clear Calc 51.8 Estimated GFR 57 Random Glucose 151 H Calcium 9.2 Magnesium 2.3 Total Bilirubin 1.9 H Direct Bilirubin 0.7 H AST 41 H D ALT 48 H Alkaline Phosphatase 77 Troponin I High Sens B-Natriuretic Peptide Total Protein 6.4 L Albumin 3.9 COVID-19 (JULIEN) COVID-19 Clin Com 11/14/21 11/14/21 11/14/21 10:45 10:46 14:26 WBC RBC Hgb Hct MCV MCH MCHC RDW Plt Count MPV Immature Gran % (Auto) Neut % (Auto) Lymph % (Auto) [place] % (Auto) Eos % (Auto) Baso % (Auto) Lymph # (Auto) [place] # (Auto) Eos # (Auto) Baso # (Auto) Abs Immat Gran (auto) Absolute Neuts (auto) Absolute Nucleated RBC Nucleated RBC % (auto) PT INR Sodium Potassium Chloride Carbon Dioxide Anion Gap BUN Creatinine Estim Creat Clear Calc Estimated GFR Random Glucose Calcium Magnesium Total Bilirubin Direct Bilirubin AST ALT Alkaline Phosphatase Troponin I High Sens 23.4 28.2 B-Natriuretic Peptide 813 H Total Protein Albumin COVID-19 (JULIEN) Negative COVID-19 Clin Com See Note 11/15/21 05:47 WBC RBC Hgb Hct MCV MCH MCHC RDW Plt Count MPV Immature Gran % (Auto) Neut % (Auto) Lymph % (Auto) [place] % (Auto) Eos % (Auto) Baso % (Auto) Lymph # (Auto) [place] # (Auto) Eos # (Auto) Baso # (Auto) Abs Immat Gran (auto) Absolute Neuts (auto) Absolute Nucleated RBC Nucleated RBC % (auto) PT INR Sodium 142 Potassium 3.5 Chloride 107 Carbon Dioxide 26 Anion Gap 13 BUN 23 H Creatinine 1.05 Estim Creat Clear Calc 66.6 Estimated GFR > 60 Random Glucose 71 D Calcium 8.1 L D Magnesium Total Bilirubin Direct Bilirubin AST ALT Alkaline Phosphatase Troponin I High Sens B-Natriuretic Peptide Total Protein Albumin COVID-19 (JULIEN) COVID-19 Clin Com EKG shows atrial fibrillation with rapid ventricular response with biventricular hypertrophy. Imaging Radiologist's impression: Impressions Chest X-Ray 11/14/21 10:50 IMPRESSION: Cardiomegaly without pulmonary edema. Bilateral regions of airspace disease consistent with pneumonia or atelectatic change. Bilateral pleural effusions right greater than left. Assessment and Plan (1) Congestive heart failure: Status: Acute Patient presents with congestive heart failure related to severe mitral valve prolapse leading to severe mitral regurgitation, usually suggest advanced myocardial dysfunction. This is unfortunate. Patient will require continue diuresis. Strict intake and output chart. Also needs better rate control. Could be that his heart failure syndrome was tipped because of his atrial fibrillation but secondary to underlying significant left atrial enlargement with severe mitral regurgitation pulmonary hypertension. Will repeat echocardiogram to assess for LV systolic function and size as well as to evaluate for pulmonary hypertension. Once he is optimized will require further workup including YSABEL and cardiac catheterization with goal to try to repair is valve either percutaneously with MitraClip or surgically if LV is not significantly dysfunctional. This was discussed with him. At this point time because of his symptoms not he is agreeable for further invasive approach and management of this mitral valve prolapse and regurgitation. However we discussed that his outcome may not be as good as it was prior to him developing congestive heart failure syndrome. He understands. Continue offload reduction, will start him on lisinopril 2.5 mg b.i.d.. Metoprolol for rate control. (2) A-fib: Status: Acute New onset atrial fibrillation rapid ventricular response. This is secondary to underlying significant mitral regurgitation left atrial enlargement. Rate control for now. May need Maze procedure during surgery if planned valve a. Continue Lovenox 1 milligram/kg subQ q.12 anticoagulation. Will follow with the patient. Procedures Date of Service Date of Service: 11/15/21
[2021-11-15] MEDS: lisinopriL 2.5 MG TABLET PO ×2 (11:37→22:26)
[2021-11-15] MEDS: 0.9 % Sodium Chloride Flush 3 ML SYRINGE IVFLUSH (15:13)
[2021-11-15] MEDS: Triamcinolone Acet 0.5 % Cream 15 GM TUBE 1 APPL TOPICAL (20:46)
[2021-11-16] VITALS (13 sets, daily range): BP systolic 99–112; BP diastolic 55–77; PULSE 78–133; RESP 18; TEMP 36.4–37.1; O2SAT 91–98
[2021-11-16] MEDS: Metoprolol Tartrate 25 MG TABLET PO ×4 (02:44→20:43)
[2021-11-16] MEDS: Enoxaparin Sodium 80 MG/0.8 ML SYRINGE 70 MG SUBCUT ×2 (02:45→14:25)
--- NOTE | 2021-11-16 09:17 | HO.PM.IMPN ---
Subjective Subjective Date of Service: 11/16/21 Interval History: F/u AFIB, remains in afib but rate is controlled in 90s, stopped cardizem drip. Still with signficant MONCADA Review of Systems +MONCADA no palipation no fever, no cough Physical Exam Vital Signs: Vital Signs: Last Vital Signs Temp 98.4 F 11/16/21 07:16 Pulse 110 H 11/16/21 07:16 Resp 18 11/16/21 07:16 BP 100/72 11/16/21 07:16 Pulse Ox 91 L 11/16/21 07:16 BMI result Body Mass Index 22.1 Objective Data Active Medications Acetaminophen (Acetaminophen 325 Mg Tablet) 650 mg PO Q6H PRN PRN Reason: Pain, Mild (Pain Scale 1-3) Calcium Carbonate (Calcium Carbonate 750 Mg Tab.Chew) 600 mg PO DAILY [facility] Enoxaparin Sodium (Enoxaparin Sodium 80 Mg/0.8 Ml Syringe) 70 mg 1 mg/kg (70 mg) SUBCUT Q12H [facility] Last Admin: 11/16/21 02:45 Dose: 70 mg Documented by: ALEXX Lisinopril (Lisinopril 2.5 Mg Tablet) 2.5 mg PO Q12H [facility]; Protocol Last Admin: 11/15/21 22:26 Dose: 2.5 mg Documented by: ALEXX Melatonin (Melatonin 3 Mg Tablet) 6 mg PO BEDTIME PRN PRN Reason: Insomnia Metoprolol Tartrate (Metoprolol Tartrate 25 Mg Tablet) 25 mg PO Q6H [facility]; Protocol Last Admin: 11/16/21 02:44 Dose: 25 mg Documented by: ALEXX Multivitamins/Vitamin C (Multivitamin Tablet) 1 tab PO DAILY [facility] Last Admin: 11/15/21 10:05 Dose: 1 tab Documented by: PRIYANK Pharmacy Consult (Consult Rx Perform Med Rec) 1 each MISCELLANE ONCE PRN PRN Reason: Consult order Sodium Chloride (0.9 % Sodium Chloride Flush 3 Ml Syringe) 3 ml IVFLUSH QSHIFT [facility] Last Admin: 11/15/21 23:58 Dose: Not Given Documented by: ALEXX Non-Admin Reason: Previously Administered Triamcinolone Acetonide (Triamcinolone Acet 0.5 % Cream 15 Gm Tube) 1 appl TOPICAL BID [facility] Last Admin: 11/15/21 20:46 Dose: 1 appl Documented by: ALEXX Labs CBC & Chem 7: 11/14/21 10:45 11/15/21 05:47 Assessment and Plan (1) Congestive heart failure: Status: Acute (2) A-fib: Status: Acute (3) Pulmonary hypertension: Status: Acute (4) Nonrheumatic mitral valve regurgitation: Status: Acute Assessment and Plan: 70/ ma with history of myxomatous mitral valve, mitral regurgiation pulmonary HTN and here with new onset AFIB with associated heart failure. 1 New AFIB likely valvular type, [id number] = 4, IV cardizem stopped 11/15--rate presently around 100, goes up signficantly with activity -continue Metoprolol 25 q6 and titrate for optimal rate control, may benefit from dig -in the long run may need Maze procedure -Lovenox for anticoagulation for now -cardiology following. 2. Heart failure, acute systolic heart failure with EF 40%, dilated RV, severely enlarged LA, Severe mitral regurg -IV Lasix, follow I/O, weight -continue lisinopril 3. Mitral regur--May need Mitral clip, +/- cardiac cath--will be transfered to [facility] on Thursday for this.. 4. Pleural effusion--likely related to heart failure---IV Lasix? and reassess and if persist beyond heart failure, will need thoracentesis 5. Dyspnea with exertion likely combination of pulmonary HTN and CHF, P. effusion--addresing underlying causes. Quality Stroke Does the patient have a stroke diagnosis?: No VTE Prior VTE?: No VTE Risk Level:: Medical - moderate - high VTE Device Contraindication: Treatment Not Indicated VTE Drug Contraindication: N/A - Med Ordered
[2021-11-16] MEDS: Furosemide 20 MG/2 ML VIAL IVPUSH (09:31)
[2021-11-16] MEDS: Calcium Carbonate 750 MG TAB.CHEW 600 MG PO (09:31)
[2021-11-16] MEDS: Multivitamin TABLET 1 TAB PO (09:32)
[2021-11-16] MEDS: 0.9 % Sodium Chloride Flush 3 ML SYRINGE IVFLUSH ×2 (09:33→20:44)
[2021-11-16] MEDS: Triamcinolone Acet 0.5 % Cream 15 GM TUBE 1 APPL TOPICAL ×2 (09:33→20:46)
[2021-11-16] MEDS: lisinopriL 2.5 MG TABLET PO ×2 (09:35→23:06)
[2021-11-16 10:10] LABS: Anion Gap 14 (12-20); Blood Urea Nitrogen 25 mg/dL (9-16); Calcium 8.7 mg/dL (8.4-10.2); Carbon Dioxide 21 mmol/L (22-29); Chloride 107 mmol/L (96-108); Estimated Glomerular Filt Rate > 60; Glucose Random 113 mg/dL (60-115); Potassium 3.8 mmol/L (3.3-5.1); Sodium 138 mmol/L (135-145)
--- NOTE | 2021-11-16 10:35 | P.PNCA_ITS ---
Subjective Subjective Date of Service: 11/16/21 Principal diagnosis: CHF, atrial fibrillation. Interval history: Patient still short of breath walking across the hallway. His orthopnea seems to have improved. His intake and output again is not charted well. His heart rate is not well controlled. His blood pressure on the lower side. No lightheadedness or loss of consciousness. Echocardiogram shows reduction LV ejection fraction as well as RV systolic function. Severe mitral regurgitation noted Review of Systems Constitutional: Reports no additional constitutional complaints Cardiovascular: Denies chest pain, Denies syncope, Denies palpitations, Reports dyspnea on exertion and Reports orthopnea Respiratory: Reports no additional respiratory complaints and Reports dyspnea on exertion Gastrointestinal: Reports no additional gastrointestinal complaints Genitourinary: Reports no additional male genitourinary complaints Skin/Breast: Reports system reviewed and no additional complaints, except as docu Reports system reviewed and no additional complaints, except as documented and Denies syncope Psychiatric: Reports no additional psychiatric complaints Endocrine: Denies palpitations Physical Exam Vital Signs: Last Vital Signs Temp 98.4 F 11/16/21 07:16 Pulse 133 H 11/16/21 09:31 Resp 18 11/16/21 07:16 BP 100/72 11/16/21 09:31 Pulse Ox 91 L 11/16/21 07:16 BMI result Body Mass Index 22.1 Const General: cooperative, comfortable, alert and awake Nutritional Appearance: thin Orientation/consciousness: patient oriented x3 Neck Neck: Yes trachea midline, Yes supple and Yes JVD Resp Effort & Inspection: normal respiratory effort Auscultation: no crackles, no wheezes and diminished lung sounds Cardio Jugular venous distension: JVD Rate: tachycardic Rhythm: abnormal rhythm irregularly irregular Heart sounds: S1 normal heart sound present, S2 normal heart sound present, no click, no gallops and Murmur heart sound present systolic holo GI Auscultation: normal bowel sounds Neuro General: patient oriented x3 and no focal motor deficits Extrem General: No clubbing, No cyanosis and Yes edema Objective Labs and Meds Result diagrams: 11/14/21 10:45 11/16/21 09:37 Lab results: Laboratory Results - last 24 hr 11/16/21 09:37 Sodium 138 Potassium 3.8 Chloride 107 Carbon Dioxide 21 L Anion Gap 14 BUN 25 H Creatinine 1.06 Estim Creat Clear Calc 66.0 Estimated GFR > 60 Random Glucose 113 D Calcium 8.7 D Magnesium 2.0 Progress Note: A&P Assessment and plan (1) Congestive heart failure: Status: Acute Assessment and Plan: Decompensated congestive heart failure due to underlying severe mitral regurgitation now with LV systolic dysfunction which carries poor prognosis in setting of not atrial fibrillation. Better rate control with digoxin, see below. Continue metoprolol therapy. Continue IV diuresis switch to Lasix 5 mg an hour drip. Strict intake and output chart needs to be pursued. Overall prognosis is guarded. Once his heart failure syndrome is better compensated, will proceed with YSABEL with a plan towards definitive treatment for severe mitral regurgitation. This was discussed with him. Given that he has developed systolic dysfunction, intervention outcomes of suboptimal. This was discussed with him. However did do not see any other option at this point in time. Continue low-dose lisinopril therapy for afterload reduction. (2) A-fib: Status: Acute Assessment and Plan: Atrial fibrillation new onset related to severe mitral regurgitation. Continue Lovenox. Continue metoprolol. Will add digoxin 0.25 mg IV push q.6 hours x3 doses and switch to p.o. digoxin starting tomorrow. Cannot use calcium channel heather due to LV systolic dysfunction. Remains difficult to control, may require YSABEL guided cardioversion. Will follow with you. Fall Risk Details Current Medications: Current Medications Acetaminophen (Acetaminophen 325 Mg Tablet) 650 mg PO Q6H PRN PRN Reason: Pain, Mild (Pain Scale 1-3) Calcium Carbonate (Calcium Carbonate 750 Mg Tab.Chew) 600 mg PO DAILY [facility] Last Admin: 11/16/21 09:31 Dose: 600 mg Documented by: Digoxin (Digoxin 0.5 Mg/2 Ml Ampul) 0.25 mg IVPUSH Q6H [facility] Stop: 11/16/21 23:01 Enoxaparin Sodium (Enoxaparin Sodium 80 Mg/0.8 Ml Syringe) 70 mg 1 mg/kg (70 mg) SUBCUT Q12H [facility] Last Admin: 11/16/21 02:45 Dose: 70 mg Documented by: Furosemide 200 mg/ Sodium (Chloride) 100 mls @ 2.5 mls/hr IVCONT .Q24H [facility] Lisinopril (Lisinopril 2.5 Mg Tablet) 2.5 mg PO Q12H [facility]; Protocol Last Admin: 11/16/21 09:35 Dose: 2.5 mg Documented by: Melatonin (Melatonin 3 Mg Tablet) 6 mg PO BEDTIME PRN PRN Reason: Insomnia Metoprolol Tartrate (Metoprolol Tartrate 25 Mg Tablet) 25 mg PO Q6H [facility]; Protocol Last Admin: 11/16/21 09:31 Dose: 25 mg Documented by: Multivitamins/Vitamin C (Multivitamin Tablet) 1 tab PO DAILY [facility] Last Admin: 11/16/21 09:32 Dose: 1 tab Documented by: Pharmacy Consult (Consult Rx Perform Med Rec) 1 each MISCELLANE ONCE PRN PRN Reason: Consult order Sodium Chloride (0.9 % Sodium Chloride Flush 3 Ml Syringe) 3 ml IVFLUSH QSHIFT [facility] Last Admin: 11/16/21 09:33 Dose: 3 ml Documented by: Triamcinolone Acetonide (Triamcinolone Acet 0.5 % Cream 15 Gm Tube) 1 appl TOPICAL BID [facility] Last Admin: 11/16/21 09:33 Dose: 1 appl Documented by: Time Spent With Patient Time: Total time spent is greater than 50% in coordination of care (as documented) at patient's floor/unit and/or counseling patient: Time with patient: 25 - 35 minutes Progress Note: Quality Stroke Does the patient have a stroke diagnosis?: No Procedures Date of Service Date of Service: 11/16/21
[2021-11-16] MEDS: Digoxin 0.5 MG/2 ML AMPUL 0.25 MG IVPUSH ×3 (11:38→23:06)
[2021-11-16] MEDS: Furosemide 200 MG in 0.9 % Sodium Chloride 80 ML IVCONT (11:40)
[2021-11-17] VITALS (14 sets, daily range): BP systolic 100–126; BP diastolic 60–76; PULSE 82–110; RESP 16–20; TEMP 36.3–36.9; O2SAT 91–95
[2021-11-17] MEDS: Metoprolol Tartrate 25 MG TABLET PO ×4 (02:51→20:46)
[2021-11-17] MEDS: Enoxaparin Sodium 80 MG/0.8 ML SYRINGE 70 MG SUBCUT ×2 (02:52→13:22)
[2021-11-17 09:08] LABS: Anion Gap 14 (12-20); Blood Urea Nitrogen 20 mg/dL (9-16); Carbon Dioxide 32 mmol/L (22-29); Chloride 99 mmol/L (96-108); Creatinine Clr Calc Pharmacy 61.9; Estimated Glomerular Filt Rate > 60; Glucose Fasting 77 mg/dL (60-99); Potassium 3.4 mmol/L (3.3-5.1); Sodium 142 mmol/L (135-145)
--- NOTE | 2021-11-17 09:08 | P.PNIM_ITS ---
Subjective Subjective Date of Service: 12/25/21 Interval History: F/u AFIB, remains in afib but rate is controlled in 90s, stopped cardizem drip. Still with signficant MONCADA Review of Systems +MONCADA no palipation no fever, no cough Physical Exam Verdana 4l Vital Signs: Verdana 4d Verdana 4d Vital Signs: Verdana 4d Verdana 4Bd Last Vital Signs Verdana 4d Loan Associate New 4d Loan Associate New 4d Temp 98.2 F 11/17/21 07:42 Loan Associate New 4d Pulse 97 11/17/21 07:42 Loan Associate New 4d Resp 18 11/17/21 07:42 BP 111/71 11/17/21 07:42 Pulse Ox 93 11/17/21 07:42 BMI result Body Mass Index 22.1 Const: Other: General: AO X 3, no acute distress Resp: CTA bilateral CVS: iregular iregular GI: +BS, NT, no distention Skin: No rash Neuro: motor grossly intact Psych: appropriate affect Objective Data Active Medications Acetaminophen (Acetaminophen 325 Mg Tablet) 650 mg PO Q6H PRN PRN Reason: Pain, Mild (Pain Scale 1-3) Calcium Carbonate (Calcium Carbonate 750 Mg Tab.Chew) 600 mg PO DAILY [facility] Last Admin: 11/16/21 09:31 Dose: 600 mg Documented by: WILLIAM Enoxaparin Sodium (Enoxaparin Sodium 80 Mg/0.8 Ml Syringe) 70 mg 1 mg/kg (70 m g) SUBCUT Q12H [facility] Last Admin: 11/17/21 02:52 Dose: 70 mg Documented by: BONNIE Furosemide 200 mg/ Sodium (Chloride) 100 mls @ 2.5 mls/hr IVCONT .Q24H [facility] Last Admin: 11/16/21 11:40 Dose: 5 mg/hr, 2.5 mls/hr Documented by: WILLIAM Lisinopril (Lisinopril 2.5 Mg Tablet) 2.5 mg PO Q12H [facility]; Protocol Last Admin: 11/16/21 23:06 Dose: 2.5 mg Documented by: BONNIE Melatonin (Melatonin 3 Mg Tablet) 6 mg PO BEDTIME PRN PRN Reason: Insomnia Metoprolol Tartrate (Metoprolol Tartrate 25 Mg Tablet) 25 mg PO Q6H [facility]; Protocol Last Admin: 11/17/21 02:51 Dose: 25 mg Documented by: BONNIE Multivitamins/Vitamin C (Multivitamin Tablet) 1 tab PO DAILY [facility] Last Admin: 11/16/21 09:32 Dose: 1 tab Documented by: WILLIAM Pharmacy Consult (Consult Rx Perform Med Rec) 1 each MISCELLANE ONCE PRN PRN Reason: Consult order Sodium Chloride (0.9 % Sodium Chloride Flush 3 Ml Syringe) 3 ml IVFLUSH QSHIFT [facility] Last Admin: 11/16/21 20:44 Dose: 3 ml Documented by: BONNIE Triamcinolone Acetonide (Triamcinolone Acet 0.5 % Cream 15 Gm Tube) 1 appl TOPICAL BID [facility] Last Admin: 11/16/21 20:46 Dose: 1 appl Documented by: BONNIE Labs CBC & Chem 7: 11/14/21 10:45 11/17/21 08:06 Labs: Laboratory Results - last 24 hr 11/16/21 09:37 Anion Gap 14 Estim Creat Clear Calc 66.0 Estimated GFR > 60 Random Glucose 113 D Calcium 8.7 D Magnesium 2.0 Assessment and Plan (1) Congestive heart failure: Status: Acute (2) A-fib: Status: Acute (3) Pulmonary hypertension: Status: Acute (4) Nonrheumatic mitral valve regurgitation: Status: Acute Plan 70/ ma with history of myxomatous mitral valve, mitral regurgiation pulmonary HTN and here with new onset AFIB with associated heart failure. 1 New AFIB likely valvular type, [id number] = 4, IV cardizem stopped 11/15--rate presently around 100, goes up signficantly with activity -continue Metoprolol 25 q6 and titrate for optimal rate control -lodaded with IV dig 0.25 x3 on 11/16, start oral dig 0.25 daily today -in the long run may need Maze procedure -Lovenox for anticoagulation for now -YSABEL cardioversion 11/18 -cardiology following. 2. Heart failure, acute systolic heart failure with EF 40%, dilated RV, severely enlarged LA, Severe mitral regurg -IV Lasix drip at 5 mg/hr since 11/16, follow I/O, weight, overall negative 200 cc, I/O is not been tracked properly patient says h was up all night -continue lisinopril, metoprolol 3. Mitral regur--May need Mitral clip, +/- cardiac cath--will be transfered to [facility] on Thursday for this.. 4. Pleural effusion--likely related to heart failure---IV Lasix? and reassess and if persist beyond heart failure, will need thoracentesis 5. Dyspnea with exertion likely combination of pulmonary HTN and CHF, P. effusion--addresing underlying causes. Quality Stroke Does the patient have a stroke diagnosis?: No VTE Prior VTE?: No VTE Risk Level:: Medical - moderate - high VTE Device Contraindication: Treatment Not Indicated VTE Drug Contraindication: N/A - Med Ordered
[2021-11-17] MEDS: lisinopriL 2.5 MG TABLET PO ×2 (09:50→23:56)
[2021-11-17] MEDS: Calcium Carbonate 750 MG TAB.CHEW 600 MG PO (09:50)
[2021-11-17] MEDS: Multivitamin TABLET 1 TAB PO (09:51)
[2021-11-17] MEDS: Triamcinolone Acet 0.5 % Cream 15 GM TUBE 1 APPL TOPICAL ×2 (09:51→20:49)
[2021-11-17] MEDS: Digoxin 0.125 MG TABLET PO (10:34)
[2021-11-17] MEDS: Furosemide 200 MG in 0.9 % Sodium Chloride 80 ML IVCONT (10:35)
--- NOTE | 2021-11-17 13:36 | PM.PNCARD ---
Subjective Subjective Date of Service: 11/17/21 Principal diagnosis: CHF, atrial fibrillation. Interval history: Patient says he is better with her shortness of breath walking the room compared to yesterday. Intake and output chart not adequately measured as patient was not monitoring his output. Remains in atrial fibrillation with difficult control rate. Borderline blood pressure. No clear orthopnea. He is very vague about his symptoms currently. Review of Systems Cardiovascular: Denies Abdominal Distension, Denies syncope, Denies lightheadedness, Denies Loss of Consciousness, Denies palpitations and Reports dyspnea on exertion (Improved) Respiratory: Reports no additional respiratory complaints and Reports dyspnea on exertion (Improved) Reports system reviewed and no additional complaints, except as documented and Denies syncope Psychiatric: Reports no additional psychiatric complaints Endocrine: Reports no additional endocrine complaints and Denies palpitations Allergic/Immunologic: Reports no additional allergic/immunologic complaints Physical Exam Vital Signs: Last Vital Signs Temp 97.4 F 11/17/21 11:30 Pulse 105 H 11/17/21 13:22 Resp 20 11/17/21 11:30 BP 104/63 11/17/21 13:22 Pulse Ox 94 11/17/21 11:30 BMI result Body Mass Index 22.1 Const General: cooperative, comfortable, no acute distress, alert and awake Nutritional Appearance: thin Orientation/consciousness: patient oriented x3 Neck Neck: Yes trachea midline and Yes JVD Resp Effort & Inspection: normal respiratory effort Auscultation: no rales, no wheezes and diminished lung sounds Cardio Jugular venous distension: JVD Rate: tachycardic Rhythm: abnormal rhythm irregularly irregular Heart sounds: S1 normal heart sound present, S2 normal heart sound present and Murmur heart sound present systolic holo Skin General skin exam: no rashes or lesions noted Neuro General: patient oriented x3 and no focal motor deficits Extrem General: Yes no clubbing, cyanosis or edema Objective Labs and Meds Result diagrams: 11/14/21 10:45 11/17/21 08:06 Lab results: Laboratory Results - last 24 hr 11/17/21 08:06 Sodium 142 Potassium 3.4 Chloride 99 Carbon Dioxide 32 H Anion Gap 14 BUN 20 H Creatinine 1.13 Estim Creat Clear Calc 61.9 Estimated GFR > 60 Fasting Glucose 77 Calcium 9.0 Magnesium 2.0 Progress Note: A&P Assessment and plan (1) Congestive heart failure: Status: Acute Assessment and Plan: Acute congestive heart failure secondary to underlying severe mitral regurgitation with development of atrial fibrillation LV systolic dysfunction. Needs mitral valve intervention in the long run to adequately treat his congestive heart failure syndrome. Clinically doing better. Continue IV Lasix. Continue rate control which has been difficult, see below. Strict intake and output chart. Continue lisinopril therapy for afterload reduction. YSABEL tomorrow to evaluate for mitral regurgitation. And eventually if clinically doing better transfer for cardiac catheterization with plan for definitive treatment for his mitral regurgitation. Overall however given his heart failure syndrome and LV systolic dysfunction, long-term outcome his diminished compared to before. This was discussed with him. (2) A-fib: Status: Acute Assessment and Plan: Atrial fibrillation with still difficult control rate. Continue metoprolol therapy. Switch to p.o. digoxin 0.25 mg daily. Ambulate as tolerated. Would avoid doing synchronized cardioversion given that he might need interruption is anticoagulation for invasive procedures. Will follow with you Fall Risk Details Current Medications: Current Medications Acetaminophen (Acetaminophen 325 Mg Tablet) 650 mg PO Q6H PRN PRN Reason: Pain, Mild (Pain Scale 1-3) Calcium Carbonate (Calcium Carbonate 750 Mg Tab.Chew) 600 mg PO DAILY [facility] Last Admin: 11/17/21 09:50 Dose: 600 mg Documented by: Digoxin (Digoxin 0.125 Mg Tablet) 0.125 mg PO DAILY [facility] Last Admin: 11/17/21 10:34 Dose: 0.125 mg Documented by: Enoxaparin Sodium (Enoxaparin Sodium 80 Mg/0.8 Ml Syringe) 70 mg 1 mg/kg (70 mg) SUBCUT Q12H [facility] Last Admin: 11/17/21 13:22 Dose: 70 mg Documented by: Furosemide 200 mg/ Sodium (Chloride) 100 mls @ 2.5 mls/hr IVCONT .Q24H [facility] Last Admin: 11/17/21 10:35 Dose: 5 mg/hr, 2.5 mls/hr Documented by: Lisinopril (Lisinopril 2.5 Mg Tablet) 2.5 mg PO Q12H [facility]; Protocol Last Admin: 11/17/21 09:50 Dose: 2.5 mg Documented by: Melatonin (Melatonin 3 Mg Tablet) 6 mg PO BEDTIME PRN PRN Reason: Insomnia Metoprolol Tartrate (Metoprolol Tartrate 25 Mg Tablet) 25 mg PO Q6H [facility]; Protocol Last Admin: 11/17/21 13:22 Dose: 25 mg Documented by: Multivitamins/Vitamin C (Multivitamin Tablet) 1 tab PO DAILY [facility] Last Admin: 11/17/21 09:51 Dose: 1 tab Documented by: Pharmacy Consult (Consult Rx Perform Med Rec) 1 each MISCELLANE ONCE PRN PRN Reason: Consult order Sodium Chloride (0.9 % Sodium Chloride Flush 3 Ml Syringe) 3 ml IVFLUSH QSHIFT [facility] Last Admin: 11/17/21 09:51 Dose: Not Given Documented by: Triamcinolone Acetonide (Triamcinolone Acet 0.5 % Cream 15 Gm Tube) 1 appl TOPICAL BID [facility] Last Admin: 11/17/21 09:51 Dose: 1 appl Documented by: Time Spent With Patient Time: Total time spent is greater than 50% in coordination of care (as documented) at patient's floor/unit and/or counseling patient: Time with patient: 25 - 35 minutes Progress Note: Quality Stroke Does the patient have a stroke diagnosis?: No Procedures Date of Service Date of Service: 11/17/21
[2021-11-18] VITALS (13 sets, daily range): BP systolic 77–122; BP diastolic 45–86; PULSE 79–117; RESP 15–20; TEMP 36–37.1; O2SAT 92–98
[2021-11-18] MEDS: Metoprolol Tartrate 25 MG TABLET PO ×2 (02:24→11:12)
[2021-11-18] MEDS: Enoxaparin Sodium 80 MG/0.8 ML SYRINGE 70 MG SUBCUT (02:24)
--- NOTE | 2021-11-18 08:06 | HO.ANESPROP2 ---
[facility] Active Problems Active Problems: All Active Problems (Updated 11/14/21 @ 13:51 by Vanna Patrick NP) Congestive heart failure (Acute) A-fib (Acute) Pulmonary hypertension (Acute) Nonrheumatic mitral valve regurgitation (Acute) Myxomatous mitral valve (Acute) Vitamin D deficiency (Acute) Osteoporosis (Acute) Past Medical History Medical History Myxomatous mitral valve Nonrheumatic mitral valve regurgitation Osteoporosis Pulmonary hypertension Vitamin D deficiency Family History Family History Father No problems noted. Mother No problems noted. Family history of problems with anesthesia: No Surgical History Surgical History No history of previous surgery History of Problems with Anesthesia: No Social History Social History Household Members: Family Housing: House Do you presently have visiting nurse or other home services: No Patient Tobacco Use Status: Never used Tobacco Second Hand Smoke Exposure: No Use of substances other than those prescribed or required for medical reasons: No Currently Displaying Signs/Symptoms of Drug Intoxication Withdrawal: No Any prior treatment program specific to substance use: No Have you been hit, kicked, punched, or otherwise hurt by someone within the past year? If so, by whom?: No Do you feel safe in your current relationship?: No Is there a partner from a previous relationship who is making you feel unsafe now?: No Are you made to feel afraid or neglected: No Spiritual Healthcare Practices: [facility] Are you DNR?: No Advance Directives: Yes Advance Directives Information Provided: No Advance Directives on File: No Advance Directives Date on File: 11/13/21 Do you have thoughts of harming others: None Do you have a plan to hurt others: No Plan Recently lost weight without trying: No Eating poorly because of decreased appetite: No Nutrition Risks: No Nutritional Risk Poor oral hygiene: No service: No Meds Allergies Allergy/AdvReac Type Severity Reaction Status Date / Time No Known Allergies Allergy Verified 08/15/21 12:48 [No Known Allergies*] Active Medications: Current Medications Acetaminophen (Acetaminophen 325 Mg Tablet) 650 mg PO Q6H PRN PRN Reason: Pain, Mild (Pain Scale 1-3) Calcium Carbonate (Calcium Carbonate 750 Mg Tab.Chew) 600 mg PO DAILY [facility] Last Admin: 11/17/21 09:50 Dose: 600 mg Documented by: Digoxin (Digoxin 0.125 Mg Tablet) 0.125 mg PO DAILY [facility] Last Admin: 11/17/21 10:34 Dose: 0.125 mg Documented by: Enoxaparin Sodium (Enoxaparin Sodium 80 Mg/0.8 Ml Syringe) 70 mg 1 mg/kg (70 mg) SUBCUT Q12H [facility] Last Admin: 11/18/21 02:24 Dose: 70 mg Documented by: Furosemide 200 mg/ Sodium (Chloride) 100 mls @ 2.5 mls/hr IVCONT .Q24H [facility] Last Admin: 11/17/21 10:35 Dose: 5 mg/hr, 2.5 mls/hr Documented by: Lisinopril (Lisinopril 2.5 Mg Tablet) 2.5 mg PO Q12H [facility]; Protocol Last Admin: 11/17/21 23:56 Dose: 2.5 mg Documented by: Melatonin (Melatonin 3 Mg Tablet) 6 mg PO BEDTIME PRN PRN Reason: Insomnia Metoprolol Tartrate (Metoprolol Tartrate 25 Mg Tablet) 25 mg PO Q6H [facility]; Protocol Last Admin: 11/18/21 02:24 Dose: 25 mg Documented by: Multivitamins/Vitamin C (Multivitamin Tablet) 1 tab PO DAILY [facility] Last Admin: 11/17/21 09:51 Dose: 1 tab Documented by: Pharmacy Consult (Consult Rx Perform Med Rec) 1 each MISCELLANE ONCE PRN PRN Reason: Consult order Sodium Chloride (0.9 % Sodium Chloride Flush 3 Ml Syringe) 3 ml IVFLUSH QSHIFT [facility] Last Admin: 11/17/21 23:58 Dose: Not Given Documented by: Triamcinolone Acetonide (Triamcinolone Acet 0.5 % Cream 15 Gm Tube) 1 appl TOPICAL BID [facility] Last Admin: 11/17/21 20:49 Dose: 1 appl Documented by: Home Medications Medication Instructions Recorded Confirmed Last Taken Type fluocinonide-emollient 0.05 % 1 appl TOPICAL BID 02/07/21 11/14/21 11/14/21 History topical cream multivitamin 1 tab PO DAILY 1211/14/21 11/13/21 History Exam Exam Date and Time: November 18, 2021 0806 Height,Weight and Vital Signs: Height 6 ft Weight 74.1 kg Last Vital Signs Temp 98.1 F 11/18/21 07:54 Pulse 97 11/18/21 07:54 Resp 16 11/18/21 07:54 BP 111/75 11/18/21 07:54 Pulse Ox 98 11/18/21 07:54 Pertinent Lab Results Pertinent Lab Results: Laboratory Tests 11/14/21 11/14/21 11/14/21 10:45 10:45 10:45 WBC 7.9 RBC 5.07 Hgb 14.7 Hct 45.6 MCV 89.9 MCH 29.0 MCHC 32.2 RDW 14.9 Plt Count 168 MPV 11.6 Immature Gran % (Auto) 0.4 Neut % (Auto) 75.8 H Lymph % (Auto) 13.3 L [place] % (Auto) 9.1 Eos % (Auto) 0.5 Baso % (Auto) 0.9 Lymph # (Auto) 1.1 L [place] # (Auto) 0.7 Eos # (Auto) 0.0 Baso # (Auto) 0.1 Abs Immat Gran (auto) 0.03 Absolute Neuts (auto) 6.0 Absolute Nucleated RBC 0.000 Nucleated RBC % (auto) 0.0 PT 16.2 H INR 1.4 H Sodium 142 Potassium 4.3 Chloride 112 H Carbon Dioxide 20 L Anion Gap 14 BUN 28 H Creatinine 1.24 Estim Creat Clear Calc 51.8 Estimated GFR 57 Random Glucose 151 H Fasting Glucose Calcium 9.2 Magnesium 2.3 Total Bilirubin 1.9 H Direct Bilirubin 0.7 H AST 41 H D ALT 48 H Alkaline Phosphatase 77 Troponin I High Sens B-Natriuretic Peptide Total Protein 6.4 L Albumin 3.9 COVID-19 (JULIEN) COVID-19 Clin Com 11/14/21 11/14/21 11/14/21 10:45 10:46 14:26 WBC RBC Hgb Hct MCV MCH MCHC RDW Plt Count MPV Immature Gran % (Auto) Neut % (Auto) Lymph % (Auto) [place] % (Auto) Eos % (Auto) Baso % (Auto) Lymph # (Auto) [place] # (Auto) Eos # (Auto) Baso # (Auto) Abs Immat Gran (auto) Absolute Neuts (auto) Absolute Nucleated RBC Nucleated RBC % (auto) PT INR Sodium Potassium Chloride Carbon Dioxide Anion Gap BUN Creatinine Estim Creat Clear Calc Estimated GFR Random Glucose Fasting Glucose Calcium Magnesium Total Bilirubin Direct Bilirubin AST ALT Alkaline Phosphatase Troponin I High Sens 23.4 28.2 B-Natriuretic Peptide 813 H Total Protein Albumin COVID-19 (JULIEN) Negative COVID-19 Clin Com See Note 11/15/21 11/16/21 11/17/21 05:47 09:37 08:06 WBC RBC Hgb Hct MCV MCH MCHC RDW Plt Count MPV Immature Gran % (Auto) Neut % (Auto) Lymph % (Auto) [place] % (Auto) Eos % (Auto) Baso % (Auto) Lymph # (Auto) [place] # (Auto) Eos # (Auto) Baso # (Auto) Abs Immat Gran (auto) Absolute Neuts (auto) Absolute Nucleated RBC Nucleated RBC % (auto) PT INR Sodium 142 138 142 Potassium 3.5 3.8 3.4 Chloride 107 107 99 Carbon Dioxide 26 21 L 32 H Anion Gap 13 14 14 BUN 23 H 25 H 20 H Creatinine 1.05 1.06 1.13 Estim Creat Clear Calc 66.6 66.0 61.9 Estimated GFR > 60 > 60 > 60 Random Glucose 71 D 113 D Fasting Glucose 77 Calcium 8.1 L D 8.7 D 9.0 Magnesium 2.0 2.0 Total Bilirubin Direct Bilirubin AST ALT Alkaline Phosphatase Troponin I High Sens B-Natriuretic Peptide Total Protein Albumin COVID-19 (JULIEN) COVID-19 Clin Com Airway Mallampati Class: II (Caps lateral) TM Dist: >3cm Neck ROM: Full Heart: irreg Lungs: cta Assessment and Plan Assessment Anesthesia Assessment: Anesthesia Plan Discussed and Chart Reviewed Final Anesthetic Review Family History of Problems with Anesthesia: No History of Problems with Anesthesia: No NPO: Yes ASA Class: III Final Preanesthetic Review: No Changes in Pt Med Stat and Consent Obtained/Reviewed Patient Risk: Intermediate Procedure Risk: Intermediate Anesthetic Plan Anesthetic Plan: MAC: Disposition: Standard PACU
--- NOTE | 2021-11-18 08:30 | CA_ITS ---
Transesophageal Echocardiogram Patient (Last, First, Middle): Speedy Hernandez J Gender: Male Date of : 1950 Age: 70 Procedure Date: 11/18/2021 Procedure Type: Transesophageal Echocardiogram Location: [facility] [place] Height: 167.64 cm Weight: kg BP: 83 / 53 mmHg Facilities Administrator: Referring MD: Dandre Dobbins MD Symptoms: Mitral regurgitation Conclusion: ??? Due to atrial fibrillation and rapid rate, difficult to assess LVEF. Probably mildly reduced. ??? There is evidence of a patent foramen ovale with left to right shunting. ??? There is a flail posterior mitral leaflet. There is severe mitral valve regurgitation. The mitral regurgitation jet is directed anteriorly. Suspect flail P2 scallop; some involvement of P1 scallop. Quantitative analysis with PISA clearly in severe range. ERO 1.1sqcm. Regurgitant volume 96ml. 3D images also acquired. Findings Procedure Information The patient is being monitored per protocol. The quality of the study was good. Consent was obtained prior to the procedure. The probe was passed with minimal difficulty. Left Ventricle Moderately increased left ventricular cavity size. Due to atrial fibrillation and rapid rate, difficult to assess LVEF. Probably mildly reduced. Right Ventricle Moderately increased right ventricular cavity size. RV systolic function appears reduced. Atria The left atrium is severely dilated. There is no evidence of a thrombus in the left atrial appendage. Patent foramen ovale detected using by color Doppler. There is evidence of a patent foramen ovale with left to right shunting. The right atrium is likely dilated. Aortic Valve There is a normal trileaflet aortic valve. There is no aortic valve stenosis. There is mild aortic valve regurgitation. Mitral Valve There is a flail posterior mitral leaflet. There is severe mitral valve regurgitation. The mitral regurgitation jet is directed anteriorly. There is no mitral valve stenosis. Suspect flail P2 scallop; some involvement of P1 scallop. Quantitative analysis with PISA clearly in severe range. ERO 1.1sqcm. Regurgitant volume 96ml. 3D images also acquired. Pulmonic Valve The pulmonic valve was not well visualized. Tricuspid Valve There is mild tricuspid valve regurgitation. Great Vessels All visible segments of the aorta are normal in size. Pericardium/Pleural There is a small loculated pericardial effusion overlying the right ventricle. Prior Study Comparison No significant change compared to prior study dated: 11/15/2021. Measurements Mitral Valve MR Vol - PW Dopp: 97.57 MR VTI: 0.89 MR ERO: 110.00 MR Alias Buddy: 0.31 MR RAD: 1.40 Updated by Dandre Dobbins on 01:36 PM with Status of Final Dandre Dobbins MD electronically signed on 11/18/2021 1:36:52 PM with status of Final
--- NOTE | 2021-11-18 08:37 | MHC.SHP ---
Pre-Procedural Eval Section A Date of Service: 11/18/21 The patient is an INPATIENT: Yes Section B Chief Complaint: afib and heart failure with underlying severe MR Allergies: Allergies Allergy/AdvReac Type Severity Reaction Status Date / Time No Known Allergies Allergy Verified 08/15/21 12:48 [No Known Allergies*] Plan I have reviewed the history and physical and performed a pertinent physical examination on my patient. No changes have occurred unless specified.
[2021-11-18] MEDS: Calcium Carbonate 750 MG TAB.CHEW 600 MG PO (11:11)
[2021-11-18] MEDS: 0.9 % Sodium Chloride Flush 3 ML SYRINGE IVFLUSH (11:11)
[2021-11-18] MEDS: lisinopriL 2.5 MG TABLET PO (11:12)
[2021-11-18] MEDS: Digoxin 0.125 MG TABLET PO (11:12)
[2021-11-18] MEDS: Multivitamin TABLET 1 TAB PO (11:12)
[2021-11-18] MEDS: Triamcinolone Acet 0.5 % Cream 15 GM TUBE 1 APPL TOPICAL (11:13)
--- NOTE | 2021-11-18 11:41 | MHC.CM.PN ---
pt to be dcd to [facility] for cardiac cath
--- NOTE | 2021-11-18 12:05 | PM.PNCARD ---
Subjective Subjective Date of Service: 11/18/21 Principal diagnosis: CHF, atrial fibrillation. Interval history: Mostly feeling OK. Review of Systems Review of Systems Yes all other systems are reviewed and are negative Cardiovascular: Reports as per HPI, Reports no additional cardiovascular complaints, Denies acrocyanosis, Denies cool extremities, Denies painful fingertips, Denies chest pain, Denies chest pain at rest, Denies diaphoresis, Denies syncope, Denies irregular heart rhythm, Denies claudication, Denies leg edema, Denies lightheadedness, Denies palpitations and Reports dyspnea Respiratory: Reports dyspnea Denies syncope Endocrine: Denies palpitations Physical Exam Vital Signs: Last Vital Signs Temp 97.8 F 11/18/21 10:36 Pulse 79 11/18/21 11:20 Resp 18 11/18/21 11:20 BP 116/68 11/18/21 11:20 Pulse Ox 96 11/18/21 11:20 BMI result Body Mass Index 22.1 Const General: no acute distress HENMT Other: Unremarkable Neck Neck: Yes normal visual inspection Chest Chest palpation & inspection: normal inspection of the chest Resp Auscultation: no crackles and no wheezes Cardio Palpation: normal PMI Heart sounds: S1 normal heart sound present, S2 normal heart sound present, no gallops, Murmur heart sound present (3/6 HSM over apex but heard all over precordium) and no rubs GI Palpation (GI): Soft to palpation Back/Spine/Pelvis Other: unremarkable Skin Lesions: other Neuro Cranial nerves: Yes Other cranial nerve findings present Extrem General: Yes other Psych Mental Status: other Objective Labs and Meds Result diagrams: 11/14/21 10:45 11/17/21 08:06 Progress Note: A&P Assessment and plan (1) Nonrheumatic mitral valve regurgitation: Status: Acute (2) Myxomatous mitral valve: Status: Acute (3) Pulmonary hypertension: Status: Acute (4) Acute diastolic (congestive) heart failure: Status: Acute (5) Atrial fibrillation with rapid ventricular response: Status: Acute Assessment and Plan: YSABEL is clearly suggestive of flail posterior leaflet and severe mitral regurgitation. There is evidence of LV dysfunction in the recent transthoracic study. LV size is also dilated. He is being followed in the office but in spite of numerous discussions, he has been delaying any intervention on the mitral valve. At this time, due to evidence of LV dysfunction, he is likely at significantly higher risk for any mitral valve procedures surgical or transcatheter. In any case, we will transfer him to [facility] for further care. He can get a right and left heart cardiac catheterization tomorrow. Then will need cardioversion and there was no evidence of any left atrial appendage thrombus on today's YSABEL. He can be maintained on amiodarone for the foreseeable future. Anticoagulation. To be seen by structural heart disease team at [facility] regarding MitraClip. Possibly cardiac surgery consultation as well. Fall Risk Details Current Medications: Current Medications Acetaminophen (Acetaminophen 325 Mg Tablet) 650 mg PO Q6H PRN PRN Reason: Pain, Mild (Pain Scale 1-3) Calcium Carbonate (Calcium Carbonate 750 Mg Tab.Chew) 600 mg PO DAILY [facility] Last Admin: 11/18/21 11:11 Dose: 600 mg Documented by: Digoxin (Digoxin 0.125 Mg Tablet) 0.125 mg PO DAILY [facility] Last Admin: 11/18/21 11:12 Dose: 0.125 mg Documented by: Enoxaparin Sodium (Enoxaparin Sodium 80 Mg/0.8 Ml Syringe) 70 mg 1 mg/kg (70 mg) SUBCUT Q12H [facility] Last Admin: 11/18/21 02:24 Dose: 70 mg Documented by: Furosemide 200 mg/ Sodium (Chloride) 100 mls @ 2.5 mls/hr IVCONT .Q24H [facility] Last Admin: 11/18/21 11:11 Dose: Not Given Documented by: Lisinopril (Lisinopril 2.5 Mg Tablet) 2.5 mg PO Q12H [facility]; Protocol Last Admin: 11/18/21 11:12 Dose: 2.5 mg Documented by: Melatonin (Melatonin 3 Mg Tablet) 6 mg PO BEDTIME PRN PRN Reason: Insomnia Metoprolol Tartrate (Metoprolol Tartrate 25 Mg Tablet) 25 mg PO Q6H [facility]; Protocol Last Admin: 11/18/21 11:12 Dose: 25 mg Documented by: Multivitamins/Vitamin C (Multivitamin Tablet) 1 tab PO DAILY [facility] Last Admin: 11/18/21 11:12 Dose: 1 tab Documented by: Pharmacy Consult (Consult Rx Perform Med Rec) 1 each MISCELLANE ONCE PRN PRN Reason: Consult order Sodium Chloride (0.9 % Sodium Chloride Flush 3 Ml Syringe) 3 ml IVFLUSH QSHIFT [facility] Last Admin: 11/18/21 11:11 Dose: 3 ml Documented by: Triamcinolone Acetonide (Triamcinolone Acet 0.5 % Cream 15 Gm Tube) 1 appl TOPICAL BID [facility] Last Admin: 11/18/21 11:13 Dose: 1 appl Documented by: Time Spent With Patient Time: Total time spent is greater than 50% in coordination of care (as documented) at patient's floor/unit and/or counseling patient: Time with patient: 15 - 24 minutes Progress Note: Quality Stroke Does the patient have a stroke diagnosis?: No Procedures Date of Service Date of Service: 11/18/21
--- NOTE | 2021-11-18 13:15 | PM.DS ---
DS: Providers Provider Date of Service: 11/18/21 Date of admission: 11/14/21 13:28 Date of discharge: 11/18/21 Primary care physician: Kale Armenta MD Consults: 11/14/21 13:26 Consult to Cardiology Routine Consulting Provider: German Garcia Reason for consultation: New afib, heart ailure Has provider been notified: No DS: Diagnosis Discharge Diagnosis (1) Nonrheumatic mitral valve regurgitation: Status: Acute (2) Myxomatous mitral valve: Status: Acute (3) Pulmonary hypertension: Status: Acute (4) Acute diastolic (congestive) heart failure: Status: Acute (5) Atrial fibrillation with rapid ventricular response: Status: Acute DS: Summary Hospital Course Hospital Course: 70-year-old male with history o mixamatous mitral valve,? moderate mitral regurgitation, pulmonary hypertension, vitamin-D deficiency he sees Dr. Dobbins and last seen in the office in July. He presents with dyspnea, ongoing for nearly 2 weeks with non-exertional and exertional. He has PND and orthopnea, and slighly swelling in the legs. He repors? no palpiation or chest pain and yet noted to be in AFIB with RVR, HR in 130 and normal blood pressure. BNP level is around 800, CXR shows moderate bilateral pelural effusion.? Hospital Course: Ventricula response responded to Dig/BB. patient continued to have good response on IV Lasix drip at 5 mg. At this point approximately 3 L negative. Underwent YSABEL 11 18 which demonstrated flail posterior leaflet and severe mitral regurgitation. Patient's Lasix drip has been D/C's and he will be transferred to [facility] for cardiac cath +/-valve replacement Time Spent with Patient Time attestation: Total time spent providing and/or coordinating discharge services: Discharge coordination time: Greater than 30 minutes Quality: Stroke Does the patient have a stroke diagnosis?: No Physical Exam Vital Signs: Vital Signs: Last Vital Signs Temp 96.8 F 11/18/21 12:00 Pulse 88 11/18/21 12:00 Resp 20 11/18/21 12:00 BP 110/68 11/18/21 12:00 Pulse Ox 95 11/18/21 12:00 BMI result Body Mass Index 22.1 Const: Other: awake alert no acute distress Resp: Other: clear to auscultation bilaterally no rales Cardio: Other: no S4; positive S1-S2 no S3 3/6 HSM over apex GI: Other: soft nontender nondistended with normoactive bowel sounds Neuro: Other: cranial nerves 2-12 grossly intact as tested. Motor is 5/5 all extremities. Sensation intact. Cognition is appropriate Extrem: Other: no edema bilaterally Discharge Plan Discharge Patient Disposition: Xfer [facility] Discharge Diagnosis: mitral regurgitation with CHF Referrals: [facility] [Other] - 1 Week Kale Armenta MD [Primary Care Provider] - 1 Week Discharge Medications: New enoxaparin 80 mg/0.8 mL Syringe 70 mg subcut Q12H Qty: 0.8 RF: 0 lisinopril 2.5 mg Tablet 2.5 mg PO Q12H Qty: 1 RF: 0 metoprolol tartrate 25 mg Tablet 25 mg PO Q6H Qty: 1 RF: 0 digoxin 125 mcg (0.125 mg) Tablet 125 mcg PO DAILY Qty: 1 RF: 0 Continued multivitamin Tablet 1 tab PO DAILY RF: 0 fluocinonide-emollient 0.05 % cream 1 appl topical BID RF: 0 Discontinued calcium carbonate 600 mg calcium (1,500 mg) tablet 600 mg PO DAILY 30 Days Qty: 30 RF: 11 Discharge Orders: Discharge Order (Routine); Ordered 11/18/21 Ordered By: Alpesh Robb Diet: low salt diet Activity on Discharge: As tolerated Stand Alone Forms: Patient Portal Discharge page Care Plan Goals: transfer to [facility] Concerns: transfer by ambulance Plan of Treatment: ultimate cardiac catheterization plus-minus valve replacement Assessment: as above
== END 2021-11-18 14:09 | disposition critical access hospital (66) | DRG 308 ==
LOC: HO.ED 10:43 → HO.EDOVER 13:34 → HO.IMC 15:47
PROVIDERS: Internal Medicine; Nurse Practitioner Family; Admitting Provider Internal Medicine; Emergency Provider Emergency Medicine; PCP Internal Medicine; Visit Provider Hospitalist
PROC: B246ZZ4 Ultrasonography of Right and Left Heart, Transesophageal (ICD-10-PCS; CPT 93312; principal; 2021-11-18 08:30)
DX: I48.91 Unspecified atrial fibrillation (principal); I50.21 Acute systolic (congestive) heart failure; I34.0 Nonrheumatic mitral (valve) insufficiency; I34.1 Nonrheumatic mitral (valve) prolapse; I27.20 Pulmonary hypertension, unspecified; Z20.822 Contact with and (suspected) exposure to COVID-19; Z79.899 Other long term (current) drug therapy
CPT/HCPCS: 36415; 71045; 80048; 80076; 83735; 83880; 84484; 85025; 85610; 87635; 93005; 93306; 93312; 96365; 96375; 96376; 99285; J1160; J1650; J1940; J2250; J2370; J3010

== ENCOUNTER → 2021-12-05 13:00 | Outpatient (BNVA) | payer MEDICARE, BC, SELFPAY | PROVIDERS: PCP Internal Medicine; Referring Provider Internal Medicine; Visit Provider Internal Medicine | DX: I34.1 Nonrheumatic mitral (valve) prolapse (principal); I34.0 Nonrheumatic mitral (valve) insufficiency; I27.20 Pulmonary hypertension, unspecified; I48.0 Paroxysmal atrial fibrillation | CPT/HCPCS: 93005; 99212 ==

== ENCOUNTER → 2022-01-09 12:46 | Outpatient (BNVA) | payer MEDICARE, BC, SELFPAY | PROVIDERS: PCP Internal Medicine; Referring Provider Internal Medicine; Visit Provider Internal Medicine | DX: I34.1 Nonrheumatic mitral (valve) prolapse (principal); I34.0 Nonrheumatic mitral (valve) insufficiency; I27.20 Pulmonary hypertension, unspecified; I48.0 Paroxysmal atrial fibrillation; R00.1 Bradycardia, unspecified | CPT/HCPCS: 93005; 99212 ==

== ENCOUNTER → 2022-01-30 09:57 | Outpatient (BNVA) | payer MEDICARE, BC, SELFPAY | PROVIDERS: PCP Internal Medicine; Referring Provider Internal Medicine; Visit Provider Internal Medicine | DX: R00.1 Bradycardia, unspecified (principal) | CPT/HCPCS: 93005 ==

== ENCOUNTER → 2022-03-20 12:54 | Outpatient (BNVA) | payer MEDICARE, BC, SELFPAY | PROVIDERS: PCP Internal Medicine; Referring Provider Internal Medicine; Visit Provider Internal Medicine | DX: I50.22 Chronic systolic (congestive) heart failure (principal); I48.0 Paroxysmal atrial fibrillation; Z86.79 Personal history of other diseases of the circulatory system; Z87.74 Personal history of (corrected) congenital malformations of heart and circulatory system; Z98.890 Other specified postprocedural states; Z79.01 Long term (current) use of anticoagulants; Z79.899 Other long term (current) drug therapy | CPT/HCPCS: 99212 ==

== ENCOUNTER 2022-04-01 11:03 | Outpatient (REF) | payer MEDICARE, BC, SELFPAY ==
[2022-04-01 12:05] LABS: B Type Natriuretic Peptide 396 pg/mL (<100)
[2022-04-01 12:20] LABS: Anion Gap 12 (12-20); Blood Urea Nitrogen 22 mg/dL (9-16); Calcium 9.7 mg/dL (8.4-10.2); Carbon Dioxide 29 mmol/L (22-29); Chloride 105 mmol/L (96-108); Estimated Glomerular Filt Rate 59; Glucose Random 84 mg/dL (60-115); Potassium 4.7 mmol/L (3.3-5.1); Sodium 141 mmol/L (135-145); Vitamin D 25-OH Total 33.8 ng/mL (>30)
[2022-04-02 14:11] LABS: Calcium (PTHI) 9.4 mg/dL (8.6-10.3); PTHI 35 pg/mL (16-77)
== END 2022-04-01 11:04 | disposition home or self-care (01) ==
LOC: HO.LAB 11:03
PROVIDERS: Internal Medicine; PCP Internal Medicine; Visit Provider Internal Medicine
DX: M81.0 Age-related osteoporosis without current pathological fracture (principal); E55.9 Vitamin D deficiency, unspecified; I34.0 Nonrheumatic mitral (valve) insufficiency; I50.22 Chronic systolic (congestive) heart failure
CPT/HCPCS: 36415; 80048; 82306; 83880; 83970

== ENCOUNTER 2022-04-18 11:44 | Outpatient (REF) | payer MEDICARE, BC, SELFPAY ==
[2022-04-18 11:48] LABS: MANUAL DIFF FLAG NO
[2022-04-18 11:56] LABS: Basophils Absolute Auto 0.1 X10*3/uL (0.0-0.2); Basophils Percent Auto 1.1 % (0-2); Eosinophils Absolute Auto 0.3 X10*3/uL (0.0-0.4); Eosinophils Percent Auto 4.7 % (0-4); Imm Gran Abs Auto 0.02 X10*3/uL (0.00-0.03); Imm Gran Pct Auto 0.3 % (0.0-0.4); Lymphocytes Absolute Auto 1.6 X10*3/uL (1.2-4.9); Lymphocytes Percent Auto 26.8 % (20-40); Mean Corpuscular HGB Conc 31.1 g/dl (31.0-36.0); Mean Corpuscular Hemoglobin 27.9 pg (27.0-33.0); Mean Corpuscular Volume 89.8 fL (80.0-98.0); Mean Platelet Volume 10.7 fL (9.4-12.4); Monocytes Absolute Auto 0.6 X10*3/uL (0.1-1.2); Monocytes Percent Auto 9.3 % (2-11); Neutrophils Absolute Auto 3.5 x10*3/uL (2.0-8.3); Neutrophils Percent Auto 57.8 % (45-73); Platelet Count 281 X10*3/uL (160-400); Red Blood Count 5.01 X10*6/uL (4.60-5.80); Red Cell Distribution Width 13.6 % (11.0-16.0); White Blood Count 6.1 X10*3/uL (4.8-10.8)
[2022-04-18 11:59] LABS: Appearance Urine HAZY; Color Urine YELLOW; Glucose Urine UA NEG (NEG); Leukocyte Esterase Urine NEG (NEG); Nitrite Urine NEG (NEG); Urine Blood NEG (NEG); Urine Ketones NEG (NEG); Urine Protein NEG (NEG-TRACE)
[2022-04-18 12:15] LABS: Alanine Aminotransferase 12 U/L (0-40); Alkaline Phosphatase 71 U/L (39-117); Anion Gap 12 (12-20); Aspartate Amino Transferase 20 U/L (5-37); Bilirubin Total 0.4 mg/dL (0.0-1.0); Blood Urea Nitrogen 18 mg/dL (9-16); Calcium 9.1 mg/dL (8.4-10.2); Carbon Dioxide 29 mmol/L (22-29); Chloride 105 mmol/L (96-108); Cholesterol 196 mg/dL; Estimated Glomerular Filt Rate > 60; Glucose Fasting 82 mg/dL (60-99); HDL Cholesterol 50 mg/dL; LDL Cholesterol Calculated 130 mg/dl; Potassium 4.4 mmol/L (3.3-5.1); Sodium 142 mmol/L (135-145); Triglycerides 81 mg/dL
[2022-04-18 12:37] LABS: PSA,Total (Free>4and<10) 0.94 ng/mL (0.00-4.00)
== END 2022-04-18 11:45 | disposition home or self-care (01) ==
LOC: HO.LNP 11:44
PROVIDERS: Visit Provider Internal Medicine
DX: Z12.5 Encounter for screening for malignant neoplasm of prostate (principal); E78.00 Pure hypercholesterolemia, unspecified; D69.6 Thrombocytopenia, unspecified
CPT/HCPCS: 80053; 80061; 81003; 84153; 85025

== ENCOUNTER → 2022-04-23 13:52 | Outpatient (REF) | payer MEDICARE, BC, SELFPAY ==
--- NOTE | 2022-04-23 13:56 | CA_ITS ---
Transthoracic Echocardiogram Patient (Last, First, Middle): Speedy Hernandez J Gender: Male Date of : 1950 Age: 71 Procedure Date: 04/23/2022 Procedure Type: Transthoracic Echocardiogram Location: OP Height: 182.88 cm Weight: 64.41 kg BSA: 1.84 m2 Heart Rate: bpm BP: 130 / 70 mmHg Jacquard Fixer: SB Referring MD: Dandre Dobbins MD Account Information Clerk: German Garcia MD Symptoms: I34.0 - Nonrheumatic mitral (valve) insufficiency Study Quality: Good ECG Rhythm: Bradycardia Conclusions: - 1. moderately dilated left ventricle with mildly to moderately reduced LV systolic function with LVEF of 40-45% with pseudonormal filling pattern 2. Biatrial enlargement, left greater than right with severe left atrial enlargement 3. Good mitral valve repair 4. Mild aortic regurgitation 5. No gross pericardial effusion Findings Left Ventricle Moderately increased left ventricular cavity size. There is normal left ventricular wall thickness. The left ventricular systolic function is mild to moderately decreased. The visually estimated ejection fraction is between 40-45%. Spectral Doppler is indicative of a pseudonormal filling pattern. Peak GLS is -13.7% which is reduced Right Ventricle Mildly increased right ventricular cavity size. There is normal right ventricular systolic function. Atria The left atrium is severely dilated. There is no evidence of interatrial shunt. The right atrium is moderately dilated. Aortic Valve Normal aortic valve structure and function. There is no aortic valve stenosis. There is mild aortic valve regurgitation. Mitral Valve There is moderate anterior and severe posterior mitral leaflet thickening. The posterior mitral leaflet is immobile. There is no mitral valve regurgitation. There is no mitral valve stenosis. there is suggestion of posterior mitral valve leaflet repair with presence of mitral annuloplasty ring. Pulmonic Valve The pulmonic valve is likely normal. There is trace pulmonic valve regurgitation. Tricuspid Valve Normal tricuspid valve structure. There is trace tricuspid valve regurgitation. Tricuspid regurgitation envelope is inadequate for calculation of right ventricular systolic pressure. Normal right atrial pressure. Great Vessels All visible segments of the aorta are normal in size. The pulmonary artery was not well visualized. Venous The inferior vena cava is normal in size and collapses greater than 50% with inspiration. Pericardium/Pleural There is no evidence of pericardial effusion. Prior Study Comparison Significant changes compared to prior study dated: 11/15/2021. LV systolic function is reduced mildly to moderately. Mitral valve repair is present in place of severe mitral regurgitation Measurements 2D Linear Measurements IVSd: 1.10 0.6-0.9/0.6-1.0 cm LVIDd: 6.25 3.9-5.3/4.2-5.9 cm LVIDd Index: 3.40 2.4-3.2/2.2-3.1 cm/m2 LVIDs: 4.63 2.0-3.6 cm LVPWd: 1.06 0.7-1.1 cm LA Diam: 5.50 2.7-3.8/3.0-4.0 cm LAIDs Index: 2.99 1.5-2.3 cm/m2 LV Mass: 364.71 67-162/88-224 g LV Mass Index: 198.21 43-95/49-115 g/m2 LVOT Diam: 2.30 3.0+(-)1.3 cm 2D Systolic Function EF 4C: 48.70 >55% EF 2C: 44.00 >55% Mitral Valve MV VTI: 0.39 MV Pk Buddy: 0.95 MV Mn Buddy: 0.56 MV Pk Grad: 4.00 MV Mn Grad: 1.00 MV Pk E: 1.10 MV PK A: 0.86 MV Decel Time: 285.00 E/A: 1.30 E'Lateral: 4.84 E'Medial: 3.49 E/E' Med: 31.50 E/E' Lat: 22.70 PHT: 84.00 MVA PHT: 2.62 MVA Continuity: 2.97 Decel [place]: 3.89 Aortic Valve AoV Pk Buddy: 1.31 AoV Mn Buddy: 0.95 AoV VTI: 0.30 AoV Pk Grad: 7.00 Aov Mn Grad: 4.00 RONNA Cont.VTI: 3.87 AI Pk Buddy: 3.92 AI [place]: 1.74 LVOT LVOT Pk Buddy: 1.16 LVOT Mn Buddy: 0.82 LVOT VTI: 0.28 LVOT Pk Grad: 5.00 LVOT Mn Grad: 3.00 LVOT Diam: 2.30 LVOT Area: 4.15 Diastolic Function MV Pk E: 1.10 MV Pk A: 0.86 E/A: 1.30 E'Medial: 3.49 E/E' Med: 31.50 E' Laterial: 4.84 E/E' Lat: 22.70 Right Ventricle TAPSE (mm): 10.20 TVS' Buddy: 6.47 Tricuspid Valve RA Press: 3.00 Great Vessels Aorta Sinus of Valsalva: 3.08 2.0-3.5 cm Ao Asc: 3.50 2.1-3.4 cm Pulmonary Valve PV Pk Buddy: 0.79 Peak PV Grad: 3.00 Updated in Other Vendor System with Status of Final German Garcia MD electronically signed on 04/23/2022 4:25:34 PM with status of Final
== END ==
LOC: HO.CARD 13:52
PROVIDERS: Visit Provider Internal Medicine
DX: I34.0 Nonrheumatic mitral (valve) insufficiency (principal)
CPT/HCPCS: 93306; 93356

== ENCOUNTER 2022-05-27 14:29 | Outpatient (REF) | payer MEDICARE, BC, SELFPAY ==
[2022-05-27 15:29] LABS: Alanine Aminotransferase 12 U/L (0-40); Albumin Level 4.1 g/dL (3.5-5.0); Alkaline Phosphatase 72 U/L (39-117); Anion Gap 11 (12-20); Aspartate Amino Transferase 18 U/L (5-37); Bilirubin Total 0.4 mg/dL (0.0-1.0); Blood Urea Nitrogen 22 mg/dL (9-16); Calcium 9.5 mg/dL (8.4-10.2); Carbon Dioxide 29 mmol/L (22-29); Chloride 108 mmol/L (96-108); Estimated Glomerular Filt Rate 55; Glucose Random 90 mg/dL (60-115); Phosphorus 3.9 mg/dL (2.7-4.5); Potassium 4.9 mmol/L (3.3-5.1); Sodium 143 mmol/L (135-145); Total Protein 7.1 g/dL (6.5-8.0)
[2022-05-27 15:45] LABS: Free T4 (Free Thyroxine) 1.24 ng/dL (0.71-1.85)
[2022-05-28 16:32] LABS: Calcium (PTHI) 9.5 mg/dL (8.6-10.3); PTHI 36 pg/mL (16-77)
== END 2022-05-27 14:30 | disposition home or self-care (01) ==
LOC: HO.LAB 14:29
PROVIDERS: Internal Medicine; PCP Internal Medicine; Visit Provider Internal Medicine
DX: I48.0 Paroxysmal atrial fibrillation (principal); I50.22 Chronic systolic (congestive) heart failure; M81.0 Age-related osteoporosis without current pathological fracture; E55.9 Vitamin D deficiency, unspecified; Z98.890 Other specified postprocedural states
CPT/HCPCS: 36415; 80053; 82306; 83970; 84100; 84439; 84443; 93005; 99212

== ENCOUNTER → 2022-07-17 12:21 | Outpatient (BNVA) | payer MEDICARE, BC, SELFPAY | PROVIDERS: PCP Internal Medicine; Visit Provider Internal Medicine | DX: M81.0 Age-related osteoporosis without current pathological fracture (principal); E55.9 Vitamin D deficiency, unspecified | CPT/HCPCS: 99212 ==

== ENCOUNTER 2022-07-23 09:33 | Outpatient (REF) | payer MEDICARE, BC, SELFPAY ==
--- NOTE | ~2022-07-23 | MM_ITS ---
EXAMINATION: BONE DENSITOMETRY CLINICAL INDICATION: Age-related osteoporosis without current pathological fracture. COMPARISON: Previous BD dated 06/22/2020 and baseline BD dated 11/03/2007. TECHNIQUE: Using a [employer] DXA System (software version: 13.1) manufactured by [employer], dual-energy x-ray absorptiometry was performed of the lumbar spine and left hip. The images are of good technical quality. Summary results are attached. FINDINGS: AP SPINE L1-L4: Current: BMD 0.660 g/cm2, Z-score -3.7, T-score -4.7, osteoporosis, 6.9% decrease from previous, 6.6% decrease from baseline (<5% change is not significant). Prior: BMD 0.709 g/cm2. Baseline: BMD 0.707 g/cm2. LEFT FEMUR, NECK: Current: BMD 0.709 g/cm2, Z-score -1.2, T-score -2.8, osteoporosis. Prior: BMD 0.739 g/cm2. Baseline: BMD 0.676 g/cm2. LEFT FEMUR, TOTAL: Current: BMD 0.733 g/cm2, Z-score -1.5, T-score -2.6, osteoporosis, 1.7% increase from previous, 0.1% decrease from baseline (<5% change is not significant). Prior: BMD 0.721 g/cm2. Baseline: BMD 0.734 g/cm2. IDENTIFIED RISK FACTORS: Osteoporosis, family history (parental hip fracture), history of fracture (adult). HISTORY OF FRACTURE: Other. MEDICATIONS: Calcium supplements or multivitamin, vitamin D. MM/XR DEXA axial skeleton IMPRESSION: 1. DIAGNOSIS: Osteoporosis based on the lowest T-score value of -4.7 in the lumbar spine applying World Health Organization criteria. 2. 10-YEAR FRACTURE RISK PREDICTION, FRAX: Major osteoporotic fracture (clinical spine, forearm, hip or shoulder) 25.7%. Hip fracture 17.6%. 3. Treatment Recommendations: NOF guidelines recommend consideration for treatment in postmenopausal women and men age 50 and older presenting with the following: -A hip or vertebral (clinical or morphometric) fracture. -T-score less than or equal to -2.5 at the femoral neck or spine after appropriate evaluation to exclude secondary causes. -Low bone mass at the hip or spine and a 10-year fracture probability by FRAX of greater than or equal to 3% for hip fracture or greater than or equal to 20% for major osteoporotic fracture based on the [place] adapted WHO algorithm. 4. Other Recommendations: All treatment decisions require clinical judgment and consideration of individual patient factors, including patient preferences, comorbidities, previous drug use, risk factors not captured in the FRAX model (e.g. frailty, falls, vitamin D deficiency, increased bone turnover, interval significant decline in bone density) and possible under or overestimation of fracture risk by FRAX. Additional medical evaluation for secondary cause of low bone mineral density may be appropriate. FUTURE SCAN RECOMMENDATION: People with diagnosed cases of osteoporosis or at high risk for fracture should have regular bone mineral density tests. For patients eligible for Medicare, routine testing is allowed once every 2 years. The testing frequency can be increased to one year for patients who have rapidly progressing disease, those who are receiving or discontinuing medical therapy to restore bone mass, or have additional risk factors.
== END 2022-07-23 09:34 | disposition home or self-care (01) ==
LOC: HO.MAMMO 09:33
PROVIDERS: Visit Provider Internal Medicine
DX: M81.0 Age-related osteoporosis without current pathological fracture (principal)
CPT/HCPCS: 77080

== ENCOUNTER 2022-07-31 11:53 | Outpatient (REF) | payer MEDICARE, BC, SELFPAY ==
[2022-07-31 12:34] LABS: Estimated Glomerular Filt Rate 53
== END 2022-07-31 11:54 | disposition home or self-care (01) ==
LOC: HO.MDS 11:53
PROVIDERS: Visit Provider Internal Medicine
DX: M81.0 Age-related osteoporosis without current pathological fracture (principal)
CPT/HCPCS: 36415; 82565; 96365

== ENCOUNTER → 2022-08-07 14:03 | Outpatient (BNVA) | payer MEDICARE, BC, SELFPAY | PROVIDERS: PCP Internal Medicine; Visit Provider Internal Medicine | DX: M81.0 Age-related osteoporosis without current pathological fracture (principal); E55.9 Vitamin D deficiency, unspecified | CPT/HCPCS: 99212 ==

== ENCOUNTER → 2022-09-16 13:11 | Outpatient (BNVA) | payer MEDICARE, BC, SELFPAY | PROVIDERS: PCP Internal Medicine; Referring Provider Internal Medicine; Visit Provider Internal Medicine | DX: I48.0 Paroxysmal atrial fibrillation (principal); I34.0 Nonrheumatic mitral (valve) insufficiency; I48.91 Unspecified atrial fibrillation; I42.8 Other cardiomyopathies; I50.22 Chronic systolic (congestive) heart failure; Z98.890 Other specified postprocedural states | CPT/HCPCS: 93005; 99212 ==

== ENCOUNTER → 2023-03-11 10:37 | Outpatient (BNVA) | payer MEDICARE, BC, SELFPAY | PROVIDERS: PCP Internal Medicine; Visit Provider Internal Medicine | DX: M18.0 Bilateral primary osteoarthritis of first carpometacarpal joints (principal); E55.9 Vitamin D deficiency, unspecified | CPT/HCPCS: 36415; 80053; 82306; 83970; 84075; 84100; 99212 ==

== ENCOUNTER 2023-03-11 11:24 | Outpatient (REF) | payer MEDICARE, BC, SELFPAY ==
[2023-03-11 14:51] LABS: Alanine Aminotransferase 10 U/L (0-40); Albumin Level 4.4 g/dL (3.5-5.0); Alkaline Phosphatase 70 U/L (39-117); Anion Gap 13 (12-20); Aspartate Amino Transferase 19 U/L (5-37); Bilirubin Total 0.8 mg/dL (0.0-1.0); Blood Urea Nitrogen 22 mg/dL (9-16); Calcium 9.2 mg/dL (8.4-10.2); Carbon Dioxide 27 mmol/L (22-29); Chloride 106 mmol/L (96-108); Estimated Glomerular Filt Rate > 60; Glucose Random 86 mg/dL (60-115); Phosphorus 3.2 mg/dL (2.7-4.5); Potassium 4.5 mmol/L (3.3-5.1); Sodium 141 mmol/L (135-145); Total Protein 6.9 g/dL (6.5-8.0)
[2023-03-11 14:58] LABS: Vitamin D 25-OH Total 42.4 ng/mL (>30)
[2023-03-13 14:58] LABS: Calcium (PTHI) 9.4 mg/dL (8.6-10.3); PTHI 57 pg/mL (16-77)
[2023-03-16 18:34] LABS: Alkaline Phosphatase Bone 7.8 mcg/L (see note)
== END 2023-03-11 11:25 | disposition home or self-care (01) ==
LOC: HO.10HDL 11:24
PROVIDERS: Visit Provider Internal Medicine
DX: Z13.89 Encounter for screening for other disorder (principal)
CPT/HCPCS: 36415; 80053; 82306; 83970; 84075; 84100

== ENCOUNTER → 2023-03-12 13:19 | Outpatient (BNVA) | payer MEDICARE, BC, SELFPAY | PROVIDERS: PCP Internal Medicine; Referring Provider Internal Medicine; Visit Provider Internal Medicine | DX: I50.22 Chronic systolic (congestive) heart failure (principal); I48.0 Paroxysmal atrial fibrillation; Z79.01 Long term (current) use of anticoagulants; Z79.899 Other long term (current) drug therapy; Z98.890 Other specified postprocedural states | CPT/HCPCS: 99212 ==

== ENCOUNTER 2023-04-21 10:54 | Outpatient (REF) | payer MEDICARE, BC, SELFPAY ==
[2023-04-21 11:00] LABS: MANUAL DIFF FLAG NO
[2023-04-21 11:07] LABS: Appearance Urine Clear; Color Urine Yellow; Glucose Urine UA Negative (Negative); Leukocyte Esterase Urine Negative (Negative); Nitrite Urine Negative (Negative); UMIC TRIGGER UACC YES; Urine Blood Trace (Negative); Urine Ketones Negative (Negative); Urine Protein Negative (Neg-Trace)
[2023-04-21 11:08] LABS: Basophils Absolute Auto 0.1 X10*3/uL (0.0-0.2); Basophils Percent Auto 1.4 % (0-2); Eosinophils Absolute Auto 0.3 X10*3/uL (0.0-0.4); Eosinophils Percent Auto 6.1 % (0-4); Hematocrit 45.1 % (42.0-52.0); Hemoglobin 14.6 g/dl (14.0-18.0); Imm Gran Abs Auto 0.01 X10*3/uL (0.00-0.03); Imm Gran Pct Auto 0.2 % (0.0-0.4); Lymphocytes Absolute Auto 1.7 X10*3/uL (1.2-4.9); Lymphocytes Percent Auto 33.6 % (20-40); Mean Corpuscular HGB Conc 32.4 g/dl (31.0-36.0); Mean Corpuscular Hemoglobin 28.3 pg (27.0-33.0); Mean Corpuscular Volume 87.4 fL (80.0-98.0); Mean Platelet Volume 10.9 fL (9.4-12.4); Monocytes Absolute Auto 0.6 X10*3/uL (0.1-1.2); Monocytes Percent Auto 12.3 % (2-11); Neutrophils Absolute Auto 2.4 x10*3/uL (2.0-8.3); Neutrophils Percent Auto 46.4 % (45-73); Platelet Count 173 X10*3/uL (160-400); Red Blood Count 5.16 X10*6/uL (4.60-5.80); Red Cell Distribution Width 14.2 % (11.0-16.0); White Blood Count 5.1 X10*3/uL (4.8-10.8)
[2023-04-21 11:11] LABS: Bacteria Urine None Seen (None Seen); Hyaline Casts Urine 0-2 /LPF (0-2); Squamous Epithelial Cell Urine 0-2 /HPF (0-2); WBC Urine 0-5 /HPF (0-5)
[2023-04-21 11:26] LABS: Alanine Aminotransferase 12 U/L (0-40); Albumin Level 4.3 g/dL (3.5-5.0); Alkaline Phosphatase 68 U/L (39-117); Anion Gap 11 (12-20); Aspartate Amino Transferase 22 U/L (5-37); Bilirubin Total 0.9 mg/dL (0.0-1.0); Blood Urea Nitrogen 18 mg/dL (9-16); Calcium 9.7 mg/dL (8.4-10.2); Carbon Dioxide 31 mmol/L (22-29); Chloride 107 mmol/L (96-108); Cholesterol 218 mg/dL; Estimated Glomerular Filt Rate 57; Glucose Fasting 94 mg/dL (60-99); HDL Cholesterol 50 mg/dL; LDL Cholesterol Calculated 150 mg/dl; Potassium 4.8 mmol/L (3.3-5.1); Sodium 144 mmol/L (135-145); Total Protein 6.8 g/dL (6.5-8.0); Triglycerides 92 mg/dL
[2023-04-21 11:41] LABS: PSA,Total (Free>4and<10) 0.82 ng/mL (0.00-4.00)
== END 2023-04-21 10:55 | disposition home or self-care (01) ==
LOC: HO.LNP 10:54
PROVIDERS: Visit Provider Internal Medicine
DX: Z12.5 Encounter for screening for malignant neoplasm of prostate (principal); D69.6 Thrombocytopenia, unspecified; E78.00 Pure hypercholesterolemia, unspecified
CPT/HCPCS: 80053; 80061; 81001; 84153; 85025

== ENCOUNTER → 2023-05-04 08:47 | Outpatient (REF) | payer MEDICARE, BC, SELFPAY ==
--- NOTE | 2023-05-04 08:49 | CA_ITS ---
Transthoracic Echocardiogram Patient (Last, First, Middle): Speedy Hernandez J Gender: Male Date of : 1950 Age: 72 Procedure Date: 05/04/2023 Procedure Type: Transthoracic Echocardiogram Location: OP Height: 182.88 cm Weight: 68.04 kg BSA: 1.89 m2 Heart Rate: bpm Lens Silverer: HA Referring MD: Dandre Dobbins MD Symptoms: I50.22 - Chronic systolic (congestive) heart failure Study Quality: Good ECG Rhythm: Sinus Conclusions: - The left ventricular systolic function is moderately decreased. The visually estimated ejection fraction is between 35-40%. - There is mild to moderately decreased right ventricular systolic function. - The left atrium is severely dilated. - s/p mitral valve repair. Normal valvular function. Findings Left Ventricle Normal left ventricular cavity size. There is mildly increased left ventricular wall thickness. The left ventricular systolic function is moderately decreased. The visually estimated ejection fraction is between 35 40%. There is moderate global hypokinesis. Diastolic function is indeterminate on the basis of available data. Right Ventricle Mildly increased right ventricular cavity size. There is mild to moderately decreased right ventricular systolic function. Atria The left atrium is severely dilated. The right atrium is normal in size. Aortic Valve There is a normal trileaflet aortic valve. There is no aortic valve stenosis. There is mild aortic valve regurgitation. Mitral Valve There is trace mitral valve regurgitation. There is no mitral valve stenosis. s/p mitral valve repair. Pulmonic Valve The pulmonic valve is likely normal. Tricuspid Valve Normal tricuspid valve structure. There is mild tricuspid valve regurgitation. There is no evidence of pulmonary hypertension. Great Vessels The asc aorta is normal in size. Venous The inferior vena cava is normal in size and collapses greater than 50% with inspiration. There is evidence of a dilated coronary sinus. Pericardium/Pleural There is no evidence of pericardial effusion. Prior Study Comparison Changes noted compared to prior study dated: 04/23/2022. Slightly lower LVEF. Measurements 2D Linear Measurements IVSd: 1.11 0.6-0.9/0.6-1.0 cm LVIDd: 5.31 3.9-5.3/4.2-5.9 cm LVIDd Index: 2.81 2.4-3.2/2.2-3.1 cm/m2 LVIDs: 3.82 2.0-3.6 cm LVPWd: 1.17 0.7-1.1 cm Ao Root: 3.40 2.1-3.5 cm LA Diam: 5.80 2.7-3.8/3.0-4.0 cm LAIDs Index: 3.07 1.5-2.3 cm/m2 LV Mass: 299.03 67-162/88-224 g LV Mass Index: 158.21 43-95/49-115 g/m2 LVOT Diam: 2.30 3.0+(-)1.3 cm 2D Systolic Function EF 4C: 36.80 >55% EF 2C: 35.00 >55% Mitral Valve MV VTI: 0.60 MV Pk Buddy: 1.16 MV Mn Buddy: 0.73 MV Pk Grad: 5.00 MV Mn Grad: 3.00 MV Pk E: 0.95 MV PK A: 0.93 MV Decel Time: 389.00 E/A: 1.00 E'Lateral: 7.18 E'Medial: 4.90 E/E' Med: 19.40 E/E' Lat: 13.20 PHT: 114.00 MVA PHT: 1.93 MVA Continuity: 1.30 Decel Tompkins: 2.44 Aortic Valve AoV Pk Buddy: 1.21 AoV Mn Buddy: 0.77 AoV VTI: 0.27 AoV Pk Grad: 6.00 Aov Mn Grad: 3.00 RONNA Cont.VTI: 2.85 LVOT LVOT Pk Buddy: 0.78 LVOT Mn Buddy: 0.49 LVOT VTI: 0.19 LVOT Pk Grad: 2.00 LVOT Mn Grad: 2.00 LVOT Diam: 2.30 LVOT Area: 4.15 Diastolic Function MV Pk E: 0.95 MV Pk A: 0.93 E/A: 1.00 E'Medial: 4.90 E/E' Med: 19.40 E' Laterial: 7.18 E/E' Lat: 13.20 Right Ventricle TAPSE (mm): 12.00 TVS' Buddy: 8.00 Tricuspid Valve TR Pk Buddy: 2.11 TR Pk Grad: 18.00 RA Press: 3.00 RVSP: 21.00 Great Vessels Aorta Ao Root-2D: 3.40 2.0-3.7 cm Ao Asc: 3.60 2.1-3.4 cm Pulmonary Valve PV Pk Buddy: 0.79 Peak PV Grad: 2.00 Updated in Other Vendor System with Status of Final Dandre Dobbins MD electronically signed on 05/04/2023 10:34:37 AM with status of Final
== END ==
LOC: HO.CARD 08:47
PROVIDERS: PCP Internal Medicine; Referring Provider Internal Medicine; Visit Provider Thoracic Surgery (Cardiothoracic Vascular Surgery)
DX: I50.22 Chronic systolic (congestive) heart failure (principal)
CPT/HCPCS: 93306

== ENCOUNTER 2023-10-12 10:45 | Outpatient (AMB) | payer MEDICARE, BC, SELFPAY ==
[2023-10-12 10:46] VITALS: BP 110/56; PULSE 57; BMI 21.3
--- NOTE | 2023-10-12 10:46 | A.OFFVIS_ITS ---
Intake Vital Signs 10/12/23 10:46 Height 6 ft Weight 157 lb 3.033 oz BMI 21.3 BP 110/56 L Blood Pressure Location Lt brachial Position Sitting Pulse 57 Pulse Source Pulse Oximeter Intake Visit Reasons: F/U Osteoporosis, needs 30 minutes Intake Note: Patient present for Osteoporosis follow up visit. Previously followed by Dr. Siddiqi. Change Control Analyst Required: No Accompanied by: Self / Same As Patient Allergies No Known Allergies [No Known Allergies*] Allergy (Verified 10/12/23 10:51) HPI HPI Comments History of Present Illness Details 72 YO Male with no significant PMHx is seen in F/U for Osteoporosis. The patient last saw Dr. Siddiqi on 03/11/2023 ?First diagnosed in 2005 after he suffered a crush fracture of his patella during a softball game. Had BMD in 2006 which revealed T score of lumbar spine of -4.4. ?He was never treated for his Osteoporosis. He formerly saw Dr. Beryl Contreras but did not follow up after his initial visit. ?He was seen by me and underwent a full biochemical evaluation for secondary causes of Osteoporosis, which was all WNL. ?He was subsequently started on Reclast, and received 3 infusions 06/22/19, 10/30/2020 and 07/31/2022. Repeat DXA completed 06/2022 revealed a 6.9% decline in his spine. ?No history of pathologic fracture or ONJ. ?Has 1 serving of dietary calcium per day in the form of milk. Takes Calcium 600 mg PO daily. Does not take Vitamin D. ?He is currently on eliquis. Denies ever using PPI, antiepileptic or glucocorticoid medication. ?Walks 30 minutes per day. ?Fracture history: ?Denies any fragility fracture. ?Height loss: ?Denies height loss. ?History of Kidney stones: ?Denies. ?Family history of Osteoporosis or hip fracture in his mother in her 90's. ?UTD on dental cleanings and sees dentist every 6 months. No planned upcoming dental work or extractions. ?Full secondary workup was completed and was negative. Tryptase was also negative. ?DXA dated: 07/23/2022 FINDINGS: AP SPINE L1-L4: Current: BMD 0.660 g/cm2, Z-score -3.7, T-score -4.7, osteoporosis, 6.9% decrease from previous, 6.6% decrea se from baseline (<5% change is not significant). Prior: BMD 0.709 g/cm2. Baseline: BMD 0.707 g/cm2. LEFT FEMUR, NECK: Current: BMD 0.709 g/cm2, Z-score -1.2, T-score -2.8, osteoporosis. Prior: BMD 0.739 g/cm2. Baseline: BMD 0.676 g/cm2. LEFT FEMUR, TOTAL: Current: BMD 0.733 g/cm2, Z-score -1.5, T-score -2.6, osteoporosis, 1.7% increase from previous, 0.1% decrea se from baseline (<5% change is not significant). Prior: BMD 0.721 g/cm2. Baseline: BMD 0.734 g/cm2. ?Labs: Laboratory Tests 07/31/22 12:17 Creatinine 1.33 Estimated GFR 53 [facility] Medical History Myxomatous mitral valve Nonrheumatic mitral valve regurgitation Osteoporosis Pulmonary hypertension Vitamin D deficiency Surgical History History of mitral valve repair (~02/10/22) History of cardiac catheterization (~10/2021) Family History Father No problems noted. Mother No problems noted. Social History Household Members: Family Housing: House Do you presently have visiting nurse or other home services: No Patient Tobacco Use Status: Never used Tobacco Second Hand Smoke Exposure: No Advance Directives Date on File: 11/13/21 service: No Physical Exam Vital Signs: Last Vital Signs Pulse 57 11/13/23 10:46 BP 110/56 L 10/12/23 10:46 BMI result Body Mass Index 21.3 Assessment & Plan Assessment & Plan (1) Osteoporosis: Code(s): M81.0 - Age-related osteoporosis without current pathological fracture Qualifiers: Osteoporosis type: unspecified Presence of current pathological fracture: unspecified Qualified Code(s): M81.0 - Age-related osteoporosis wi thout current pathological fracture Plan: This 72-year-old white male with a history of severe osteoporosis with negative secondary workup received 3 infusions of Reclast in 2018, 2019 and 2021. Plan is discussed with the patient options treatment which could include switching to anabolic therapy with Forteo or Tymlos or giving another dose of Reclast. We also talk about possibly getting a 2nd opinion at [facility] or [facility] the patient is seriously considering doing that. He will get back to me and let me know how he wants to proceed. We discussed the risk of not treating and the high risk of fracture and its consequences Coding Level of Care Code Est Pt Level 3 (87282) Diagnoses Osteoporosis, unspecified osteoporosis type, unspecified pathological fracture presence M81.0 Osteoporosis type: unspecified Presence of current pathological fracture: unspecified
== END 2023-10-12 11:51 | disposition home or self-care (01) ==
PROVIDERS: PCP Internal Medicine; Visit Provider Internal Medicine Endocrinology, Diabetes & Metabolism
DX: M81.0 Age-related osteoporosis without current pathological fracture (principal)
CPT/HCPCS: 99213

== ENCOUNTER → 2023-10-12 10:45 | Outpatient (BNVA) | payer MEDICARE, BC, SELFPAY | PROVIDERS: PCP Internal Medicine; Visit Provider Internal Medicine Endocrinology, Diabetes & Metabolism | DX: M81.0 Age-related osteoporosis without current pathological fracture (principal) | CPT/HCPCS: 99212 ==

== ENCOUNTER 2024-03-23 12:47 | Outpatient (AMB) | payer MEDICARE, BC, SELFPAY ==
[2024-03-23 13:02] VITALS: BP 120/70; PULSE 57; BMI 20.9
--- NOTE | 2024-03-23 13:02 | A.OFFVIS_ITS ---
Vital Signs 03/23/24 13:02 Height 6 ft Weight 154 lb 5.177 oz BMI 20.9 BP 120/70 Blood Pressure Location Lt brachial Position Sitting Pulse 57 Intake Visit Reasons: 1 year follow up Intake Note: 1 year follow-up with ekg feeling good Pipelines Supervisor Required: No Allergies No Known Allergies [No Known Allergies*] Allergy (Verified 10/12/23 10:51) Medication List - Last Reconciled 03/23/24 by Dandre Dobbins MD amoxicillin 2,000 mg (4 x 500 mg) PO ONCE apixaban (Eliquis) 5 mg PO BID calcipotriene 0.005% 1 appl topical DAILY calcium carbonate 600 mg PO DAILY fluocinonide-emollient 0.05 % 1 appl topical BID metoprolol succinate ER (Toprol XL) 25 mg PO DAILY multivitamin 1 tab PO DAILY sacubitril-valsartan 24-26 mg (Entresto) 1 tab PO BID spironolactone 25 mg PO DAILY HPI Comments Details: Speedy returns for follow-up regarding mitral regurgitation, atrial fibrillation and cardiomyopathy. Overall, he feels good. No complaints like angina or shortness of breath or palpitations or in fact anything cardiac sounding. He states he is getting along fine. [facility] Medical History Myxomatous mitral valve Nonrheumatic mitral valve regurgitation Osteoporosis Pulmonary hypertension Vitamin D deficiency Surgical History History of mitral valve repair (~02/10/22) History of cardiac catheterization (~10/2021) Family History Father No problems noted. Mother No problems noted. Social History Household Members: Family Housing: House Do you presently have visiting nurse or other home services: No Patient Tobacco Use Status: Never used Tobacco Second Hand Smoke Exposure: No Advance Directives Date on File: 11/13/21 service: No Review of Systems Const Denies chills, Denies fatigue, Denies fever(s), Denies frequent falls, Denies weakness, Denies weight gain and Denies weight loss ENT Denies dizziness Card Denies chest pain, Denies leg edema, Denies lightheadedness, Denies palpitations, Denies dyspnea, Denies dyspnea on exertion, Denies orthopnea and Denies other (loss of consciousness) Resp Denies cough, Denies dyspnea and Denies dyspnea on exertion GI Denies hematochezia and Denies change in stool character Musc Denies abnormal gait, Denies muscle weakness, Denies numbness, Denies radiating pain into limb and Denies tingling Neuro Denies abnormal gait, Denies dizziness, Denies frequent falls, Denies numbness, Denies tingling and Denies weakness Endo Denies fatigue and Denies palpitations Physical Exam Vital Signs: Last Vital Signs Pulse 57 03/23/24 13:02 BP 120/70 03/23/24 13:02 BMI result Body Mass Index 20.9 Const General: comfortable and no acute distress Orientation/consciousness: patient oriented x3 HEENT Other: Unremarkable Head: Yes normal to inspection Neck Neck: Yes normal visual inspection Chest Chest palpation & inspection: normal inspection of the chest Resp Auscultation: clear to auscultation bilaterally Cardio Palpation: normal PMI Heart sounds: S1 normal heart sound present, S2 normal heart sound present, no gallops, no murmurs and no rubs GI Palpation (GI): Soft to palpation Back/Spine/Pelvis Other: unremarkable Skin General skin exam: no rashes or lesions noted Neuro General: patient oriented x3 Extrem General: Yes normal to inspection Psych Mental Status: mental status grossly normal Office Procedures EKG Details: EKG with sinus bradycardia at 57/Min; IA prolongation to 208 milliseconds; incomplete right bundle-branch block pattern. 48902-[id number], Complete Assessment & Plan Assessment & Plan (1) Status post mitral valve repair: Code(s): Z98.890 - Other specified postprocedural states Category: Surgical Plan: Status post mitral valve repair 01/2022; at that time he also had PFO closure. In the post op [facility] echocardiogram, annuloplasty ring in the mitral position. Mean gradient across the mitral valve was 3 mm Hg at 59/Min; there was trace regurgitation. In the last echocardiogram, normally functioning mitral valve, status post repair. Cardiac catheterization did not show any significant coronary disease. Infective endocarditis prophylaxis before any dental procedures. (2) Chronic systolic (congestive) heart failure: Code(s): I50.22 - Chronic systolic (congestive) heart failure Category: Medical Plan: In the last echocardiogram LVEF is 35-40%. Clinically, no volume overload. No symptoms either. Remains on beta-blockers/Entresto. If any heart failure events, we can add Farxiga but I doubt he will take anything more. (3) PAF (paroxysmal atrial fibrillation): Code(s): I48.0 - Paroxysmal atrial fibrillation Category: Medical Plan: During mitral valve surgery, he also underwent left atrial appendage ligation and pulmonary vein isolation/ablation. Has been on amiodarone in the past but not anymore. Remains on Eliquis. Orders: Orders B Type Natriuretic Peptide Today I50.9 - Heart failure, unspecified CA echo transthoracic complete 1 Year Z98.890 - Other specified postprocedural states Basic Metabolic Panel Today I50.22 - Chronic systolic (congestive) heart failure Coding Level of Care Code Est Pt Level 4 (55108) Diagnoses Status post mitral valve repair Z98.890 Chronic systolic (congestive) heart failure I50.22 PAF (paroxysmal atrial fibrillation) I48.0 CPT Codes EKG - CPT: 28606-[id number], Complete ([id number])
== END 2024-03-23 13:29 | disposition home or self-care (01) ==
PROVIDERS: PCP Internal Medicine; Visit Provider Internal Medicine
DX: Z98.890 Other specified postprocedural states (principal); I50.22 Chronic systolic (congestive) heart failure; I48.0 Paroxysmal atrial fibrillation
CPT/HCPCS: 93010; 99214

== ENCOUNTER 2024-03-23 12:47 | Outpatient (REF) | payer MEDICARE, BC, SELFPAY ==
[2024-03-23 15:52] LABS: B Type Natriuretic Peptide 133 pg/mL (<100)
[2024-03-23 17:04] LABS: Anion Gap 10 (12-20); Blood Urea Nitrogen 21 mg/dL (9-16); Calcium 9.6 mg/dL (8.4-10.2); Carbon Dioxide 30 mmol/L (22-29); Chloride 106 mmol/L (96-108); Estimated Glomerular Filt Rate > 60; Glucose Random 65 mg/dL (60-115); Potassium 4.6 mmol/L (3.3-5.1); Sodium 141 mmol/L (135-145)
== END 2024-03-23 12:48 | disposition home or self-care (01) ==
LOC: HO.LAB 12:47
PROVIDERS: PCP Internal Medicine; Visit Provider Internal Medicine
DX: I11.0 Hypertensive heart disease with heart failure (principal); I50.22 Chronic systolic (congestive) heart failure; I48.0 Paroxysmal atrial fibrillation; I45.19 Other right bundle-branch block; I34.0 Nonrheumatic mitral (valve) insufficiency; D21.3 Benign neoplasm of connective and other soft tissue of thorax; Z98.890 Other specified postprocedural states; Z79.01 Long term (current) use of anticoagulants
CPT/HCPCS: 36415; 80048; 83880; 93005; 99212

== ENCOUNTER 2024-04-22 10:46 | Outpatient (REF) | payer MEDICARE, BC, SELFPAY ==
[2024-04-22 10:51] LABS: MANUAL DIFF FLAG NO
[2024-04-22 11:11] LABS: Basophils Absolute Auto 0.1 X10*3/uL (0.0-0.2); Basophils Percent Auto 1.2 % (0-2); Eosinophils Absolute Auto 0.3 X10*3/uL (0.0-0.4); Eosinophils Percent Auto 6.2 % (0-4); Hematocrit 44.9 % (42.0-52.0); Hemoglobin 14.6 g/dl (14.0-18.0); Imm Gran Abs Auto 0.01 X10*3/uL (0.00-0.03); Imm Gran Pct Auto 0.2 % (0.0-0.4); Lymphocytes Absolute Auto 1.8 X10*3/uL (1.2-4.9); Lymphocytes Percent Auto 35.3 % (20-40); Mean Corpuscular HGB Conc 32.5 g/dl (31.0-36.0); Mean Corpuscular Hemoglobin 28.5 pg (27.0-33.0); Mean Corpuscular Volume 87.7 fL (80.0-98.0); Mean Platelet Volume 10.8 fL (9.4-12.4); Monocytes Absolute Auto 0.6 X10*3/uL (0.1-1.2); Monocytes Percent Auto 11.2 % (2-11); Neutrophils Absolute Auto 2.3 x10*3/uL (2.0-8.3); Neutrophils Percent Auto 45.9 % (45-73); Platelet Count 181 X10*3/uL (160-400); Red Blood Count 5.12 X10*6/uL (4.60-5.80); Red Cell Distribution Width 13.7 % (11.0-16.0)
[2024-04-22 11:22] LABS: Appearance Urine Clear; Color Urine Yellow; Glucose Urine UA Negative (Negative); Leukocyte Esterase Urine Negative (Negative); Nitrite Urine Negative (Negative); PH 6.5 (5.0-9.0); Specific Gravity - Urine 1.025 (1.005-1.025); Urine Blood Negative (Negative); Urine Ketones Negative (Negative); Urine Protein Negative (Neg-Trace)
[2024-04-22 11:28] LABS: Bacteria Urine None Seen (None Seen); Hyaline Casts Urine 0-2 /LPF (0-2); RBC Urine 0-2 /HPF (0-2); Squamous Epithelial Cell Urine 0-2 /HPF (0-2); WBC Urine 0-5 /HPF (0-5)
[2024-04-22 11:55] LABS: Alanine Aminotransferase 9 U/L (0-40); Albumin Level 4.3 g/dL (3.5-5.0); Alkaline Phosphatase 62 U/L (39-117); Anion Gap 10 (12-20); Aspartate Amino Transferase 21 U/L (5-37); Bilirubin Total 0.7 mg/dL (0.0-1.0); Blood Urea Nitrogen 27 mg/dL (9-16); Calcium 9.5 mg/dL (8.4-10.2); Carbon Dioxide 28 mmol/L (22-29); Chloride 106 mmol/L (96-108); Cholesterol 189 mg/dL (<200); Estimated Glomerular Filt Rate > 60; Glucose Fasting 86 mg/dL (60-99); HDL Cholesterol 46 mg/dL (>40); LDL Cholesterol Calculated 126 mg/dL (<100); Potassium 4.4 mmol/L (3.3-5.1); Sodium 140 mmol/L (135-145); Total Protein 7.2 g/dL (6.5-8.0); Triglycerides 88 mg/dL (<150)
[2024-04-22 12:05] LABS: PSA,Total (Free>4and<10) 0.83 ng/mL (0.00-4.00)
== END 2024-04-22 10:47 | disposition home or self-care (01) ==
LOC: HO.LNP 10:46
PROVIDERS: Visit Provider Internal Medicine
DX: Z12.5 Encounter for screening for malignant neoplasm of prostate (principal); E78.00 Pure hypercholesterolemia, unspecified; D69.6 Thrombocytopenia, unspecified; I50.22 Chronic systolic (congestive) heart failure
CPT/HCPCS: 80053; 80061; 81001; 84153; 85025

== ENCOUNTER 2024-10-31 13:02 | Outpatient (REF) | payer MEDICARE, BC, SELFPAY ==
[2024-10-31 14:15] LABS: Blood Urea Nitrogen 21 mg/dL (9-16); Estimated Glomerular Filt Rate > 60
== END 2024-10-31 13:03 | disposition home or self-care (01) ==
LOC: HO.LNP 13:02
PROVIDERS: Visit Provider Internal Medicine
DX: R79.9 Abnormal finding of blood chemistry, unspecified (principal)
CPT/HCPCS: 82565; 84520

== ENCOUNTER → 2025-03-10 10:36 | Outpatient (REF) | payer MEDICARE, BC, SELFPAY ==
--- NOTE | 2025-03-10 10:41 | CA_ITS ---
Transthoracic Echocardiogram Patient (Last, First, Middle): Speedy Hernandez J Gender: Male Date of : 1950 Age: 74 Procedure Date: 03/10/2025 Procedure Type: Transthoracic Echocardiogram Location: OP Height: 182.88 cm Weight: 69.85 kg BSA: 1.91 m2 Heart Rate: 50 bpm BP: 120 / 70 mmHg Senior Biostatistician/Group Leader: SB Referring MD: Dandre Dobbins MD Symptoms: Z98.890 - Other specified postprocedural states Study Quality: Adequate ECG Rhythm: Bradycardia Conclusions: - Normal left ventricular cavity size. The left ventricular systolic function is borderline reduced. The visually estimated ejection fraction is between 45-50%. - Moderately increased right ventricular cavity size. There is moderately decreased right ventricular systolic function. - The left atrium is severely dilated. The right atrium is moderately dilated. - S/p ring valvuloplasty. There is no mitral valve regurgitation. There is no mitral valve stenosis. Findings Left Ventricle Normal left ventricular cavity size. The left ventricular systolic function is borderline reduced. The visually estimated ejection fraction is between 45-50%. Regional wall motion abnormalities can not be excluded due to suboptimal endocardial definition. Diastolic function is indeterminate on the basis of available data. There is mild septal asymmetric hypertrophy. Right Ventricle Moderately increased right ventricular cavity size. There is moderately decreased right ventricular systolic function. Atria The left atrium is severely dilated. The right atrium is moderately dilated. Aortic Valve Normal aortic valve structure and function. There is no aortic valve stenosis. There is trace (trivial) aortic valve regurgitation. Mitral Valve S/p ring valvuloplasty. There is no mitral valve regurgitation. There is no mitral valve stenosis. Pulmonic Valve The pulmonic valve is likely normal. Tricuspid Valve Normal tricuspid valve structure. There is trace tricuspid valve regurgitation. Normal right atrial pressure. There is no evidence of pulmonary hypertension. Great Vessels All visible segments of the aorta are normal in size. The visualized portions of the pulmonary artery and branches are normal. Venous The inferior vena cava is normal in size and collapses greater than 50% with inspiration. Pericardium/Pleural There is no evidence of pericardial effusion. Prior Study Comparison Changes noted compared to prior study dated: 05/04/2023. EF 45 to 50%. Measurements 2D Linear Measurements IVSd: 1.22 0.6-0.9/0.6-1.0 cm LVIDd: 5.43 3.9-5.3/4.2-5.9 cm LVIDd Index: 2.84 2.4-3.2/2.2-3.1 cm/m2 LVIDs: 3.80 2.0-3.6 cm LVPWd: 0.76 0.7-1.1 cm LA Diam: 5.70 2.7-3.8/3.0-4.0 cm LAIDs Index: 2.98 1.5-2.3 cm/m2 LV Mass: 256.81 67-162/88-224 g LV Mass Index: 134.45 43-95/49-115 g/m2 LVOT Diam: 2.70 3.0+(-)1.3 cm 2D Systolic Function EF 4C: 53.00 >55% EF 2C: 48.50 >55% EF BiP: 49.40 >55% Mitral Valve MV VTI: 0.52 MV Pk Buddy: 1.42 MV Mn Buddy: 0.84 MV Pk Grad: 8.00 MV Mn Grad: 4.00 MV Pk E: 1.14 MV PK A: 0.91 MV Decel Time: 427.00 E/A: 1.30 E'Lateral: 4.68 E'Medial: 4.46 E/E' Med: 25.60 E/E' Lat: 24.40 PHT: 125.00 MVA PHT: 1.76 MVA Continuity: 2.44 Decel Piute: 2.66 Aortic Valve AoV Pk Buddy: 1.04 AoV Pk Grad: 4.00 AI Pk Buddy: 4.04 AI Piute: 1.83 LVOT LVOT Pk Buddy: 1.00 LVOT Mn Buddy: 0.71 LVOT VTI: 0.22 LVOT Pk Grad: 4.00 LVOT Mn Grad: 2.00 LVOT Diam: 2.70 LVOT Area: 5.73 Diastolic Function MV Pk E: 1.14 MV Pk A: 0.91 E/A: 1.30 E'Medial: 4.46 E/E' Med: 25.60 E' Laterial: 4.68 E/E' Lat: 24.40 Right Ventricle TAPSE (mm): 13.10 TVS' Buddy: 5.56 Tricuspid Valve TR Pk Buddy: 2.58 TR Pk Grad: 27.00 RA Press: 3.00 RVSP: 30.00 Great Vessels Aorta Sinus of Valsalva: 3.30 2.0-3.5 cm Ao Asc: 3.70 2.1-3.4 cm Pulmonary Valve PV Pk Buddy: 0.81 Peak PV Grad: 3.00 Updated in Other Vendor System with Status of Final Lit Guo MD electronically signed on 03/12/2025 9:13:32 PM with status of Final
--- OUTSIDE RECORDS SUMMARY | 2025-03-10 11:27 | XMS_ITS ---
Author Organization Kale Armenta MD Address [address] [place] [phone] Care Team Providers Care Catering Assistant Name Role Phone Kale Armenta Primary Care Provider Results Component Value Reference Range Notes Blood Urea Nitrogen Reviewed date:10/31/2024 05:24:29 PM Interpretation: Performing Lab:, [address] [place] [id number] Notes/Report: Blood Urea Nitrogen 21 9-16 mg/dL Creatinine Reviewed date:10/31/2024 05:20:56 PM Interpretation: Performing Lab:, [address] [place] [id number] Notes/Report: Creatinine 1.16 0.5-1.4 mg/dL Estimated Glomerular Filt Rate > 60 Chronic Kidney Disease: Estimated GFR < 60 mL/min/1.73m2 Severe Kidney Disease: Estimated GFR < 15 mL/min/1.73m2 REASON FOR VISIT BUN,CREATININE Encounters Encounter Location Date Provider Diagnosis Kale Armenta MD [address] [place] [phone] 10/31/2024 Kale Armenta Elevated BUN R79.9 Assessments Encounter Date Diagnosis (ICD Code) Assessment Notes Treatment Notes Treatment Clinical Notes Section Notes 10/31/2024 Elevated BUN (ICD-10 - R79.9) Plan Of Treatment Next Appt Details Provider Name:Kale Araujo mariliar, 04/25/2025 08:00:00 AM, [address], [address], [place], [place], [id number], Provider Name:Kale Araujo mariliar, 05/05/2025 08:30:00 AM, [address], [address], [place], [place], [phone], Progress Notes * Speedy HERNANDEZDOB: [birth year] (74 yo M)Acc No.[id number]:10/31/2024 Progress Note Patient:?Speedy HERNANDEZ Provider:?Kale Armenta MD :1950???Age:73 Y???Sex:Male Nathen e:10/31/2024 Address:[address] [place], [place] [phone] Subjective: * Chief Complaints: * ???1. BUN,CREATININE. * Medical History:? Objective: * Vitals:? Assessment: * Assessment: 1.?Elevated BUN - R79.9 (Dari ram)??? Plan: * Treatment: * Procedure Codes:?28802 VENIP UNCT, ROUTINE* * * The named appointment provid er may or may not be the originator of this progress note, and it is not deemed complete until electronically signed by the appointment provider. Sign off status: Pending * Provider:?Kale Armenta MD Date:?1 01/01/2024 Generated for Adolph schuster/Zander/Tristenitting on:?03/10/2025 11:27 AM EDT
--- OUTSIDE RECORDS SUMMARY | 2025-03-10 11:28 | XMS_ITS | Clinical Summary ---
Author Organization [facility] Facility Address [address] [place] [id number] Care Team Providers Care Publications Manager Name Role Phone Unavailable Primary Care Provider Unavailabl e Social History Tobacco Use Types Packs/Day Years Used Date Smoking Tobacco: Never Assessed Sex and Gender Information Value Date Recorded Sex Assigned at Not on file Legal Sex Male 12:46 PM EDT Gender Identity Not on file Sexual Orientation Not on file Plan of Treatment Health Maintenance Due Date Last Done Comments Influenza Vaccine (Season Ended) 2025 09/05/2021, 09/05/2021, 08/30/2020, Additional history exists Pneumococcal Vaccine: 50+ Years Completed 07/05/2021, 07/05/2021, 06/18/2020, Additional history exists Hepatitis B Vaccine Aged Out No longe r eligible based on patient's age to complete this topic Insurance Medicare [facility]
--- OUTSIDE RECORDS SUMMARY | 2025-03-10 11:28 | XMS_ITS ---
Author Organization Kale Armenta MD Address [address] [place] [phone] Care Team Providers Care Stitch Bonding Machine Tender Name Role Phone Kale Armenta Primary Care Provider REASON FOR VISIT review labs Medications Medication SIG (Take, Route, Frequency, Duration) Notes Start Date End Date Status Fluocinonide Emulsified Base 0.05 % 1 application Externally Twice a day Active Eliquis 5 MG TAKE 1 TABLET TWICE DAILY DIRECTED Active Spironolactone 25 MG 1 tablet Orally Active Zoryve 0.3 % 1 application Vice President & General Manager [employer] ally Once a day Active Metoprolol Succinate ER 25 MG 1 tablet Orally Once a day Active Calcium Carbonate 600 MG as directed Orally Active Multivitamin Men 50+ - as directed Orally Active Entresto 24-26 MG 1 tablet Orally Twic e a day Active Social History Tobacco Use: Social History Observation Description Date Details (start date - stop date) Never Smoker NA - NA Tobacco Use/Smoking Question Answer Notes Patient is a nonsmoker Additional Findings: Tobacco Non-User Cu rrent non-smoker, currently using no form of tobacco Alcohol Screen Question Answer Notes Did you have a drink containing alcohol in the p ast year? No Points 0 Interpretation Negative Vital Signs Blood pressure systolic 112 mm Hg 04/29/20 24 Blood pressure diastolic 50 mm Hg 024 Height 72 in 04/29/2024 Weight 155 lbs 04/29/2024 BMI 21.02 kg/m2 04/29/2024 weight is up 3 pounds since 10-29-23 Encounters Encounter Location Date Provider Diagnosis Kale Armenta MD [address] [place], [place] [phone] 04/29/2024 Kale Armenta Afib I48.91 ; Chroni c systolic (congestive) heart failure I50.22 ; Paroxysmal atrial fibrillation I48.0 ; Elevated BUN R79.9 ; Colon cancer screening Z12.11 and Depression screening Z13.31 Assessments Encounter Date Diagnosis (ICD Code) Assessment Notes Treatment Notes Treatment Clinical Notes Section Notes 04/29/2024 Afib (ICD-10 - I48.91) doing well 04/29/2024 Chronic systolic (congestive) heart failure (ICD-10 - I50.22) stable, will continue current regiment 04/29/2024 Paroxysmal atrial fibrillation (ICD-10 - I48.0) not having any problems, will continue current regiment 04/29/2024 Elevated BUN (ICD-10 - R79.9) is secondary to entresto, will continue to monitor, pending future labs 04/29/2024 Colon cancer screening (ICD-10 - Z12.11) guaiac negative 04/29/2024 Depression screening (ICD-10 - Z13.31) negative screen Plan Of Treatment Medication Medication Name Sig Start Date Stop Date Notes Eliquis 5 MG TAKE 1 TABLET TWICE DAILY DIRECTED Spironolactone 25 MG 1 tablet Orally Metoprolol Succinate ER 25 MG 1 tablet Orally Once a day Entresto 24-26 MG 1 tablet Orally Twice a day Treatment Notes Assessment Notes Afib doing well Chronic systolic (congestive) heart fail ure stable, will continue current regiment Paroxysmal atrial fibrillation not havin g any problems, will continue current regiment Elevated BUN is secondary to entr esto, will continue to monitor, pending future labs Colon cancer screening guaiac negative Depression screening negative screen Next Appt Details Follow Up: 6 Months, Reason: Provider Name:Kale Araujo iekyle, 04/25/2025 08:00:00 AM, [address], [address], [place], [place], [phone], Provider Name:Kale Villalobos Olgacarol dmitri, 05/05/2025 08:30:00 AM, [address] [facility], [address], [place], [place], [phone], Progress Notes * Speedy HERNANDEZDOB: [birth year] (73 yo M)Acc No.[id number]:04/29/2024 Patient:?Speedy Hernandez Provider:?Kale Armenta MD :1950???Age:73 Y???Sex:Male Nathen e:04/29/2024 Address:[address] [place], [place] [phone] Subjective: * Chief Complaints: * ???Review labs * HPI: ???Depression Screening:?PHQ-9?Little interest or pleasure in doing things?Not at all,?Feeling down, depressed, or hopeless?Not at all,?Trouble falling or staying asleep, or sleeping too much?Not at all,?Feeling tired or having little energy?Not at all,?Poor appetite or overeating?Not at all,?Feeling bad about yourself or that you are a failure, or have let yourself or your family down?Not at all,?Trouble concentrating on things, such as reading the newspaper or watching television?Not at all,?Moving or speaking so slowly that other people could have noticed; or the opposite, being so fidgety or restless that you have been moving around a lot more than usual?Not at all,?Thoughts that you would be better off or of hurting yourself in some way?Not at all,?Total Score?0.?Interpretation and Intervention?Depression Screening Findings?Negative,?Follow-Up for Depression?: review of PHQ-9 found negative result, no follow-up needed.?Communication Needs:?Communication Needs?Does the patient have a hearing impairment?No,?Does the patient have a vision impairment??Yes,?If yes, what is the vision impairment??Glasses,?Does the patient have a cognition impairment??No.?Fall Risk:?History?Have you had any falls with injury in the past year??No,?Have you had two or more falls in the past year??No.?SDOH Questions:?SDOH Questions?In the past year have you been worried about losing housing??No,?In the past year have you or any family members you live with been unable to get any of the following when it was really needed? Check all that apply:?None.?Symptom(s):? patient is a 73 yo male here for review of recent labs andf follow up. of cardiac issues. * ROS:?General/Constitutional:?Patient denies?chills , fatigue , fever , headache.?ENT:?Patient denies?decreased sense of smell , any loss of taste , sore throat.?Respiratory:?Patient denies?shortness of breath at rest shortness of breath with exertion.?Cardiovascular:?Patient denies?chest pain with exertion chest pain at rest.?Genitourinary:?Patient denies?difficulty urinating frequent urination.?Musculoskeletal:?Patient denies?muscle aches.?Peripheral Vascular:?Patient denies?red and blue toes.?Skin:?Patient complaining of?itching from psoriasis.? * Medical History:? * Surgical History:? * Hospitalization/Major Diagno stic Procedure:? * Family History:?Father: dece ased 85 yrs.?Mother: 92 yrs.?1 sister(s) . .? Father-CVA Mother-CVA, Denies mental health/substance abuse family history, Denies mental health/substance abuse family history, No pertinent family medical history, No pertinent family medical history, Denies mental health/substance abuse family history. * Social History:?Tobacco Use:?Tobacco Use/Smoking?Patient is a?nonsmoker,?Additional Findings: Tobacco Non-User?Current non-smoker, currently using no form of tobacco.?Drugs/Alcohol:?Alcohol Screen?Did you have a drink containing alcohol in the past year??No,?Points?0,?Interpretation?Negative.?Miscellaneous:?Caffeine: yes, frequency:, 2-3 cups per day. no Children. Community involvements: yes. Exercise: yes, Cardiac Rehab. Home smoke detector use: yes. Housing: owning. Marital status: single. Occupation: retired. Pets: none. no Travel outside of the [place]. * Medications:?TakingZoryve 0. 3 % Cream 1 application Externally Once a daySpironolactone 25 MG Tablet 1 tablet Orally Metoprolol Succinate ER 25 MG Tablet Extended Release 24 Hour 1 tablet Orally Once a dayCalcium Carbonate 600 MG Tablet as directed Orally Multivitamin Men 50+ - Tablet as directed Orally Entresto 24-26 MG Tablet 1 tablet Orally Twice a dayEliquis 5 MG Tablet TAKE 1 TABLET TWICE DAILY DIRECTED Fluocinonide Emulsified Base 0.05 % Cream 1 application Externally Twice a dayMedication List reviewed and reconciled with the patientTaking Zoryve 0.3 % Cream 1 application Externally Once a dayTaking Spironolactone 25 MG Tablet 1 tablet Orally Taking Metoprolol Succinate ER 25 MG Tablet Extended Release 24 Hour 1 tablet Orally Once a dayTaking Calcium Carbonate 600 MG Tablet as directed Orally Taking Multivitamin Men 50+ - Tablet as directed Orally Taking Entresto 24-26 MG Tablet 1 tablet Orally Twice a dayTaking Eliquis 5 MG Tablet TAKE 1 TABLET TWICE DAILY DIRECTED Taking Fluocinonide Emulsified Base 0.05 % Cream 1 application Externally Twice a dayMedication List reviewed and reconciled with the patient * Allergies:?yes[Allergies Savita ified] Objective: * Vitals:?Ht: 72, Wt:155, BMI: 21.02, BP:112/50 weight is up 3 pounds since 10-29-23. * ???Past Orders: ???Lab:Complete Blood Count Auto Diff (Order Date - 04/22/2024) (Collection Date - 04/22/2024) ? Value Reference Range ?White Blood Count 5.0 4. 8-10.8 - X10*3/uL ?Red Blood Count 5.12 4.60 -5.80 - X10*6/uL ?Hemoglobin 14.6 14.0-18.0 - g/dl ?Hematocrit 44.9 42.0-52.0 - % ?Mean Corpuscular Volume 87.7 80.0-98.0 - fL ?Mean Corpuscular Hemoglobin 28.5 27.0-33.0 - pg ?Mean Corpuscular HGB Conc 32.5 31.0-36.0 - g/dl ?Red Cell Distribution Width 13.7 11.0-16.0 - % ?Platelet Count 181 160-4 00 - X10*3/uL ?Mean Platelet Volume 10.8 9.4-12.4 - fL ?Neutrophils Percent Auto 45.9 45-73 - % ?Imm Gran Pct Auto 0.2 0. 0-0.4 - % ?Lymphocytes Percent Auto 35.3 20-40 - % ?Monocytes Percent Auto 11.2 H 2-11 - % ?Eosinophils Percent Auto 6.2 H 0-4 - % ?Basophils Percent Auto 1.2 0-2 - % ?NRBC Pct Auto 0.0 0.0-0. 2 - /100WBC ?Neutrophils Absolute Auto 2.3 2.0-8.3 - x10*3/uL ?Imm Gran Abs Auto 0.01 0. 00-0.03 - X10*3/uL ?Lymphocytes Absolute Auto 1.8 1.2-4.9 - X10*3/uL ?Monocytes Absolute Auto 0.6 0.1-1.2 - X10*3/uL ?Eosinophils Absolute Auto 0.3 0.0-0.4 - X10*3/uL ?Basophils Absolute Auto 0.1 0.0-0.2 - X10*3/uL ?NRBC Abs Auto 0.000 0.0-0. 012 - X10*3/uL ???Lab:Lipid Panel (Order Da 04/22/2024) (Collection Date - 04/22/2024) ? Value Reference Range ?Triglycerides 88 <150 - mg/dL ?Cholesterol 189 <200 - m g/dL ?LDL Cholesterol Calculated 126 H <100 - mg/dL ?HDL Cholesterol 46 >40 - mg/dL ???Lab:PSA,Total (Free>4and< 10) (Order 04/22/2024) (Collection - 04/22/2024) ? Value Reference Range ?PSA,Total (Free>4and<10) 0.83 0.00-4.00 - ng/mL ???Lab:Comprehensive [place]. P nuno Fast (Order 04/22/2024) (Collection Date - 04/22/2024) ? Value Reference Range ?Sodium 140 135-145 - mmo l/L ?Bilirubin Total 0.7 0.0- 1.0 - mg/dL ?Aspartate Amino Transferase 21 5-37 - U/L ?Alanine Aminotransferase 9 0-40 - U/L ?Total Protein 7.2 6.5-8. 0 - g/dL ?Albumin Level 4.3 3.5-5. 0 - g/dL ?Alkaline Phosphatase 62 39-117 - U/L ?Potassium 4.4 3.3-5.1 - mmol/L ?Chloride 106 96-108 - mm ol/L ?Carbon Dioxide 28 22-29 - mmol/L ?Anion Gap 10 L 12-20 - ?Blood Urea Nitrogen 27 H 9-16 - mg/dL ?Creatinine 0.96 0.5-1.4 - mg/dL ?Estimated Glomerular Filt Rate > 60 - ?Glucose Fasting 86 60-9 9 - mg/dL ?Calcium 9.5 8.4-10.2 - m g/dL * Examination: ???General Examination: ?GENERAL APPEARANCE:? alert, well hydrated, in no distress .?HEAD:? normocephalic.?EYES:? BOTH EYES normal.?EARS:? BOTH EARS normal.?THROAT:? no erythema no exudate pharynx normal.?NECK/THYROID:? no carotid bruit no cervical lymphadenopathy.?SKIN:? abnormal with scaling of legs and a plaque on base of penis consitant with psoriasis.?HEART:? no murmurs, rubs, gallops regular rate and rhythm.?LUNGS:? no wheezes, rales, rhonchi good air movement clear to auscultation bilaterally.?ABDOMEN:? soft, nontender, nondistended no rebound tenderness no organomegaly .?RECTAL EXAM:? stool guaiac negative prostate normal no masses palpable.?MALE GENITOURINARY:? circumcised no testicular mass testes descended bilaterally.?EXTREMITIES:? no edema.? Assessment: * Assessment: 1.?Afib - I48.91 (Primary)?2 .?Chronic systolic (congestive) heart failure - I50.22?3.?Paroxysmal atrial fibrillation - I48.0?4.?Elevated BUN - R79.9?5.?Colon cancer screening - Z12.11?6.?Depression screening - Z13.31? Plan: * Treatment: 2.?Chronic systolic (congest melissa) heart failure? Continue Spironolactone Tablet, 25 MG, 1 tablet, Orally;?Continue Metoprolol Succinate ER Tablet Extended Release 24 Hour, 25 MG, 1 tablet, Orally, Once a day;?Continue Entresto Tablet, 24-26 MG, 1 tablet, Orally, Twice a day.?? Notes: stable, will continue current regiment.?? 3.?Paroxysmal atrial fibrill ation? Notes: not having any problems, will continue current regiment.?? 4.?Elevated BUN?LAB: Blood Urea Nitrogen (Ordered for 10/30/2024) ?LAB: Creatinine (Ordered for 10/30/2024) Notes: is secondary to entresto, will continue to monitor, pending future labs.?? 5.?Colon cancer screening? Notes: guaiac negative.?? 6.?Depression screening? Notes: negative screen.?? * Procedure Codes:? * Preventive Medicine:? ??CHF Care Plan:?Patient Lifestyle Goals?Relieve symptoms and improve quality of life.?Treatment Goals?Take medicine exactly as directed and plan for RX refills.?Barriers ?No Specific barriers.?Self-Managment Goals?Monitor your symptoms daily.? * Follow Up:?6 Months * * Sign off status: Completed true * Provider:?Kale Armenta MD Date:?0 04/29/2024 Generated for Adolph schuster/Zander/eTsilsmitting on:?03/10/2025 11:27 AM EDT History and Physical Notes * HPI (History of Present Illness) Category Sub-Category Detail Notes Category Not es Symptom(s) patient is a 73 yo male here for review of recent labs andf follow up. of cardiac issues Depression Screening PHQ-9 Little inte rest or pleasure in doing things: Not at all Feeling down, depressed, or hopeless: No t at all Trouble falling or staying asleep, or sl eeping too much: Not at all Feeling tired or having little energy: N ot at all Poor appetite or overeating: Not at all Feeling bad about yourself o r that you are a failure, or have let yourself or your family down: Not at all Trouble concentrating on thi ngs, such as reading the newspaper or watching television: Not at all Moving or speaking so slowly that other people could have noticed; or the opposite, being so fidgety or restless that you have been moving around a lot more than usual: Not at all Thoughts that you would be b sahil off or of hurting yourself in some way: Not at all Total Score: 0 Interpretation and Intervention Depression Margarette reeder Findings: Negative Follow-Up for Depression: : review of PH Q-9 found negative result, no follow-up needed SDOH Questions SDOH Questions In the past year have you been worried about losing housing?: No In the past year have you or any family members you live with been unable to get any of the following when it was really needed? Check all that apply:: None Fall Risk History Have you had any falls with injury i n the past year?: No Have you had two or more falls in the st year?: No Communication Needs Communication Needs Does the patient have a hearing impairment: No Does the patient have a vision impairmen t?: Yes ?If yes, what is the vision impairment?: Glasses Does the patient have a cognition impair ment?: No Examination Category Sub-Category Detail Notes Category Not es General Examination GENERAL APPEARANCE: alert, w ell hydrated, in no distress HEAD: normocephalic EYES: BOTH EYES normal EARS: BOTH EARS normal THROAT: no erythema no exuda te pharynx normal NECK/THYROID: no carotid bruit no cervical lymphadenopathy HEART: no murmurs, rubs, ga llops regular rate and rhythm LUNGS: no wheezes, rales, r honchi good air movement clear to auscultation bilaterally ABDOMEN: soft, nontender, non distended no rebound tenderness no organomegaly SKIN: abnormal with scalin g of legs and a plaque on base of penis consitant with psoriasis EXTREMITIES: no edema MALE GENITOURINARY: circumcised no testi cular mass testes descended bilaterally RECTAL EXAM: stool guaiac negativ e prostate normal no masses palpable
--- OUTSIDE RECORDS SUMMARY | 2025-03-10 11:28 | XMS_ITS ---
Author Organization Kale Armenta MD Address [address] [place] [phone] Care Team Providers Care Pattern Perforating Machine Operator Name Role Phone Kale Armenta Primary Care Provider Allergies No Known Allergies REASON FOR VISIT 6 MO F/U Medications Medication SIG (Take, Route, Frequency, Duration) Notes Start Date End Date Status Entresto 24-26 MG 1 tablet Orally Twic e a day Active Fluocinonide Emulsified Base 0.05 % 1 application Externally Twice a day Active Multivitamin Men 50+ - as directed Orally Active Calcium Carbonate 600 MG as directed Orally Active Zoryve 0.3 % 1 application Electronics Department Manager ally Once a day Active Metoprolol Succinate ER 25 MG 1 tablet Orally Once a day Active Eliquis 5 MG TAKE 1 TABLET TWICE DAILY DIRECTED Active Spironolactone 25 MG 1 tablet Orally Active Vital Signs Blood pressure systolic 94 mm Hg 11/07/20 24 Blood pressure diastolic 58 mm Hg 024 Height 72 in 11/07/2024 Weight 157 lbs 11/07/2024 BMI 21.29 kg/m2 11/07/2024 weight is up 2 pounds since 04-29-24 Encounters Encounter Location Date Provider Diagnosis Kale Armenta MD [address] [place] [address] [place] [phone] 11/07/2024 Kale Armenta Elevated BUN R79.9 ; Heart murmur, systolic I38 ; Chronic systolic (congestive) heart failure I50.22 and Paroxysmal atrial fibrillation I48.0 Assessments Encounter Date Diagnosis (ICD Code) Assessment Notes Treatment Notes Treatment Clinical Notes Section Notes 11/07/2024 Elevated BUN (ICD-10 - R79.9) repeat bun good, will continue to monitor 11/07/2024 Heart murmur, systolic (ICD-10 - I38) had his valve replaced and is doing great 11/07/2024 Chronic systolic (congestive) heart failure (ICD-10 - I50.22) stable, followed by cardiology, will continue current tegiment 11/07/2024 Paroxysmal atrial fibrillation (ICD-10 - I48.0) stable, will continue current regiment, follow ed by cardiology Plan Of Treatment Medication Medication Name Sig Start Date Stop Date Notes Entresto 24-26 MG 1 tablet Orally Twice a day Metoprolol Succinate ER 25 MG 1 tablet Orally Once a day Eliquis 5 MG TAKE 1 TABLET TWICE DAILY DIRECTED Treatment Notes Assessment Notes Elevated BUN repeat bun good, linda l continue to monitor Heart murmur, systolic had his valve rep laced and is doing great Chronic systolic (congestive) heart fail ure stable, followed by cardiology, will continue current tegiment Paroxysmal atrial fibrillation stable, w ill continue current regiment, follow ed by cardiology Next Appt Details Provider Name:Kale rizvi, 04/25/2025 08:00:00 AM, [address] [place] [address], [address] [facility], [place], [place], [phone], Provider Name:Kale rizvi, 05/05/2025 08:30:00 AM, [address] [place] [address], [address] [facility], [place], [place], [phone], Progress Notes * Speedy HERNANDEZDOB: [birth year] (73 yo M)Acc No.[id number]:11/07/2024 Progress Notes Patient:?Speedy Hernandez Provider:?Kale Armenta MD :1950???Age:73 Y???Sex:Male Nathen e:11/07/2024 Address:[address] [place], [place] [id number] , [facility] [address] [id number] Subjective: * Chief Complaints: * ???6 MO F/U * HPI: ???Symptom(s):? patient is a 73 yo male here for 6 month follow up visit, goes to cardiac rehab for 2.5 years. the goup goes out to eat couple times per year. * ROS:?General/Constitutional:?Denies?Chills.?Denies?Fatigue.?Denies?Fever.?Denies?Headache.?ENT:?Patient denies?decreased sense of smell , any loss of taste , sore throat.?Denies?Sore throat.?Respiratory:?Denies?Cough.?Denies?Shortness of breath at rest.?Denies?Shortness of breath with exertion.?Gastrointestinal:?Denies?Diarrhea.?Denies?Nausea.?Musculoskeletal:?Patient denies?muscle aches.?Peripheral Vascular:?Patient denies?red and blue toes.? * Medical History:? * Surgical History:? * Hospitalization/Major Diagno stic Procedure:? * Medications:?TakingZoryve 0. 3 % Cream 1 application Externally Once a dayCalcium Carbonate 600 MG Tablet as directed Orally Multivitamin Men 50+ - Tablet as directed Orally Fluocinonide Emulsified Base 0.05 % Cream 1 application Externally Twice a daySpironolactone 25 MG Tablet 1 tablet Orally Metoprolol Succinate ER 25 MG Tablet Extended Release 24 Hour 1 tablet Orally Once a dayEliquis 5 MG Tablet TAKE 1 TABLET TWICE DAILY DIRECTED Entresto 24-26 MG Tablet 1 tablet Orally Twice a dayMedication List reviewed and reconciled with the patientTaking Zoryve 0.3 % Cream 1 application Externally Once a dayTaking Calcium Carbonate 600 MG Tablet as directed Orally Taking Multivitamin Men 50+ - Tablet as directed Orally Taking Fluocinonide Emulsified Base 0.05 % Cream 1 application Externally Twice a dayTaking Spironolactone 25 MG Tablet 1 tablet Orally Taking Metoprolol Succinate ER 25 MG Tablet Extended Release 24 Hour 1 tablet Orally Once a dayTaking Eliquis 5 MG Tablet TAKE 1 TABLET TWICE DAILY DIRECTED Taking Entresto 24-26 MG Tablet 1 tablet Orally Twice a dayMedication List reviewed and reconciled with the patient * Allergies:?N.K.D.A.yes[Aller gies Verified] Objective: * Vitals:?Ht: 72, Wt:157, BMI: 21.29, BP:94/58 weight is up 2 pounds since 04-29-24. * ???Past Orders: ???Lab:Blood Urea Nitrogen ( Order Date - 10/31/2024) (Collection Date - 10/31/2024) ? Value Reference Range ?Blood Urea Nitrogen 21 H 9-16 - mg/dL ???Lab:Creatinine (Order Nathen e - 10/31/2024) (Collection Date - 10/31/2024) ? Value Reference Range ?Creatinine 1.16 0.5-1.4 - mg/dL ?Estimated Glomerular Filt Rate > 60 - * Examination: ???General Examination: ?GENERAL APPEARANCE:?alert, well hydrated, in no distress.?HEAD:?normocephalic.?SKIN:?good turgor.?HEART:?grade 1/6 systolic murmur at left sternal border.?LUNGS:?no wheezes, rales, rhonchi , good air movement , clear to auscultation bilaterally.? Assessment: * Assessment: 1.?Elevated BUN - R79.9 (Dari ram)?2.?Heart murmur, systolic - I38?3.?Chronic systolic (congestive) heart failure - I50.22?4.?Paroxysmal atrial fibrillation - I48.0? Plan: * Treatment: 2.?Heart murmur, systolic? Notes: had his valve replaced and is doing great?? 3.?Chronic systolic (congest melissa) heart failure? Continue Entresto Tablet, 24-26 MG, 1 tablet, Orally, Twice a day.?? Notes: stable, followed by cardiology, will continue current tegiment?? 4.?Paroxysmal atrial fibrill ation? Continue Metoprolol Succinate ER Tablet Extended Release 24 Hour, 25 MG, 1 tablet, Orally, Once a day;?Continue Eliquis Tablet, 5 MG, TAKE 1 TABLET TWICE DAILY DIRECTED.?? Notes: stable, will continue current regiment, follow ed by cardiology?? * Procedure Codes:? * * Sign off status: Completed true * Provider:?Kale Armenta MD Date:?1 01/08/2024 Generated for Adolph schuster/Zander/Tristenitting on:?03/10/2025 11:27 AM EDT History and Physical Notes * HPI (History of Present Illness) Category Sub-Category Detail Notes Category Not es Symptom(s) patient is a 73 yo male here for 6 month follow up visit, goes to cardiac rehab for 2.5 years. the goup goes out to eat couple times per year Examination Category Sub-Category Detail Notes Category Not es General Examination GENERAL APPEARANCE: alert, w ell hydrated, in no distress HEAD: normocephalic HEART: grade 1/6 systolic m urmur at left sternal border LUNGS: no wheezes, rales, r honchi , good air movement , clear to auscultation bilaterally SKIN: good turgor
--- OUTSIDE RECORDS SUMMARY | 2025-03-10 11:28 | XMS_ITS | Patient Health Record ---
Author Organization Kale Armenta MD Address [address] [place], [place] [id number] Care Team Providers Care Seed Cone Picker Name Role Phone Kale Armenta Primary Care Provider Allergies No Known Allergies Results Component Value Reference Range Notes Complete Blood Count Auto Di ff Reviewed date:04/22/2024 04:16:21 PM Interpretation: Performing Lab:[facility], [address] [place] [phone] Notes/Report: White Blood Count 5.0 4.8-10.8 X10*3/uL Red Blood Count 5.12 4.60-5.80 X10*6/uL Hemoglobin 14.6 14.0-18.0 g/dl Hematocrit 44.9 42.0-52.0 % Mean Corpuscular Volume 87.7 80.0-98.0 fL Mean Corpuscular Hemoglobin 28.5 27.0-33.0 pg Mean Corpuscular HGB Conc 32.5 31.0-36.0 g/dl Red Cell Distribution Width 13.7 11.0-16.0 % Platelet Count 181 160-400 X10*3/uL Mean Platelet Volume 10.8 9.4-12.4 fL Neutrophils Percent Auto 45.9 45-73 % Imm Gran Pct Auto 0.2 0.0-0.4 % Lymphocytes Percent Auto 35.3 20-40 % Monocytes Percent Auto 11.2 2-11 % Eosinophils Percent Auto 6.2 0-4 % Basophils Percent Auto 1.2 0-2 % NRBC Pct Auto 0.0 0.0-0.2 /100WBC Neutrophils Absolute Auto 2.3 2.0-8.3 x10*3/u L Imm Gran Abs Auto 0.01 0.00-0.03 X10*3/uL Lymphocytes Absolute Auto 1.8 1.2-4.9 X10*3/u L Monocytes Absolute Auto 0.6 0.1-1.2 X10*3/uL Eosinophils Absolute Auto 0.3 0.0-0.4 X10*3/u L Basophils Absolute Auto 0.1 0.0-0.2 X10*3/uL NRBC Abs Auto 0.000 0.0-0.012 X10*3/uL Comprehensive [facility]. Panel Fa st Reviewed date:04/26/2024 04:11:59 PM Interpretation: Performing Lab:[facility], [address] [place] [phone] Notes/Report: Sodium 140 135-145 mmol/L Potassium 4.4 3.3-5.1 mmol/L Chloride 106 96-108 mmol/L Carbon Dioxide 28 22-29 mmol/L Anion Gap 10 12-20 Blood Urea Nitrogen 27 9-16 mg/dL Creatinine 0.96 0.5-1.4 mg/dL Estimated Glomerular Filt Rate > 60 NOTE: For -Maltese individuals, multiply the result by 1.210. Chronic Kidney Disease: Estimated GFR < 60 mL/min/1.73m2 Severe Kidney Disease: Estimated GFR < 15 mL/min/1.73m2 Glucose Fasting 86 60-99 mg/dL Calcium 9.5 8.4-10.2 mg/dL Bilirubin Total 0.7 0.0-1.0 mg/dL Aspartate Amino Transferase 21 5-37 U/L Alanine Aminotransferase 9 0-40 U/L Total Protein 7.2 6.5-8.0 g/dL Albumin Level 4.3 3.5-5.0 g/dL Alkaline Phosphatase 62 39-117 U/L Lipid Panel Reviewed date:04/22/2024 12:33:16 PM Interpretation: Performing Lab:[address] [phone] Notes/Report: Triglycerides 88 <150 mg/dL Desirable Triglyceride: less than 150 mg/dL Borderline High Triglyceride 150-199 mg/dL High Triglyceride: 200-499 mg/dL Very High Triglyceride: greater than or equal to 5OO mg/dL Cholesterol 189 <200 mg/dL Desirable Cholesterol: less than 200 mg/dL Borderline High Cholesterol: 200-239 mg/dL High Cholesterol: greater than 239 mg/dL LDL Cholesterol Calculated 126 <100 mg/dL Desirable LDL: less than 100 mg/dL Near Optimal/Above Optimal LDL: 110-129 mg/dL Borderline High LDL: 130-159 mg/dL High LDL: 160-189 mg/dL Very High LDL: greater than or equal to 190 mg/dL HDL Cholesterol 46 >40 mg/dL Desirable HDL: greater than 40 mg/dL Note: This HDL assay may give artificially low results in patients with liver disease. PSA,Total (Free>4and<10) Reviewed date:04/22/2024 12:33:57 PM Interpretation: Performing Lab:[address] [phone] Notes/Report: PSA,Total (Free>4and<10) 0.83 0.00-4.00 ng/mL A Free PSA was not performed: The percentage of Free PSA can be used to enhance the differentiation of prostate cancer from benign prostatic disease in subjects whose PSA levels are between 4.0 and 10.0 ng/mL. For subjects whose PSA levels are below 4.0 or above 10.0 ng/mL, the risk of prostate cancer is determined on the basis of the PSA alone. Therefore the % Free PSA is recommended only for those subjects whose PSA levels are between 4.0 and 10.0 ng/mL. PSA methodology: Rabago Alinity i Chemiluminescent Microparticle Immunoassay (CMIA) UA ClnCatch+Micro w/rflx Cul t Reviewed date:04/26/2024 04:30:37 PM Interpretation: Performing Lab:[address] [phone] Notes/Report: [id number] Urine, Clean Catch Color Urine Yellow Appearance Urine Clear PH 6.5 5.0-9.0 Glucose Urine UA Negative Negative mg/dL Urine Blood Negative Negative Specific [place] - Urine 1.025 1.005-1.025 Urine Protein Negative Neg-Trace mg/dL Urine Ketones Negative Negative mg/dL Nitrite Urine Negative Negative Leukocyte Esterase Urine Negative Negative RBC Urine 0-2 0-2 /HPF WBC Urine 0-5 0-5 /HPF Squamous Epithelial Cell Urine 0-2 0-2 /HPF Bacteria Urine None Seen None Seen Hyaline Casts Urine 0-2 0-2 /LPF Blood Urea Nitrogen Reviewed date:10/31/2024 05:24:29 PM Interpretation: Performing Lab:[facility], [address] [place] [phone] Notes/Report: Blood Urea Nitrogen 21 9-16 mg/dL Creatinine Reviewed date:10/31/2024 05:20:56 PM Interpretation: Performing Lab:[facility], [address] [place] [phone] Notes/Report: Creatinine 1.16 0.5-1.4 mg/dL Estimated Glomerular Filt Rate > 60 Chronic Kidney Disease: Estimated GFR < 60 mL/min/1.73m2 Severe Kidney Disease: Estimated GFR < 15 mL/min/1.73m2 Basic Metabolic Panel Reviewed date:03/24/2024 05:39:50 PM Interpretation: Performing Lab:[facility], [address] [place] [phone] Notes/Report: Sodium 141 135-145 mmol/L Potassium 4.6 3.3-5.1 mmol/L Chloride 106 96-108 mmol/L Carbon Dioxide 30 22-29 mmol/L Anion Gap 10 12-20 Blood Urea Nitrogen 21 9-16 mg/dL Creatinine 1.10 0.5-1.4 mg/dL Estimated Glomerular Filt Rate > 60 NOTE: For -Maltese individuals, multiply the result by 1.210. Chronic Kidney Disease: Estimated GFR < 60 mL/min/1.73m2 Severe Kidney Disease: Estimated GFR < 15 mL/min/1.73m2 Glucose Random 65 60-115 mg/dL Calcium 9.6 8.4-10.2 mg/dL B Type Natriuretic Peptide Reviewed date:03/24/2024 05:39:33 PM Interpretation: Performing Lab:[facility], [address] [facility], [place] [address] Notes/Report: B Type Natriuretic Peptide 133 <100 pg/mL For those patients who are being treated with Natrecor (nesiritide, recombinant BNP), BNP testing should be performed at least two hours post treatment in order to ensure that only endogenous levels of BNP are detected. Reason For Referral No Information Medications Medication SIG (Take, Route, Frequency, Duration) Notes Start Date End Date Status Metoprolol Succinate ER 25 MG 1 tablet Orally Once a day Active Eliquis 5 MG TAKE 1 TABLET TWICE DAILY DIRECTED Active Entresto 24-26 MG 1 tablet Orally Twic e a day Active Fluocinonide Emulsified Base 0.05 % 1 application Externally Twice a day Active Multivitamin Men 50+ - as directed Orally Active Calcium Carbonate 600 MG as directed Orally Active Zoryve 0.3 % 1 application Sound Recordist ally Once a day Active Spironolactone 25 MG 1 tablet Orally Active Immunizations Vaccine Route Administration Date Status Comme nts Flu Vaccine Unknown 08/30/2013 Administered Social Secu [employer] Work Flu Vaccine Unknown 09/05/2014 Administered Work [employer] Fluarix Quadrivalent Unknown 09/13/2018 Administered CV S Fluarix Quadrivalent Unknown 08/30/2019 Administered CV S PPSV23 (Pnemovax) IM Intramuscular 06/18/2020 Administered Fluarix Quadrivalent IM Intramuscular 08/30/2020 Administe red SARS-COV-2 Moderna Unknown 02/21/2021 Administered SARS-COV-2 Moderna Unknown 03/21/2021 Administered Prevnar 13 IM Intramuscular 07/05/2021 Administered Influenza High Dose IM Intramuscular 09/05/2021 Administer ed SARS-COV-2 Moderna Unknown 11/13/2021 Administered Influenza High Dose IM Intramuscular 09/16/2022 Administer ed SARS-COV-2 Moderna Unknown 10/15/2022 Administered Influenza High Dose IM Intramuscular 08/31/2023 Administer ed Social History Tobacco Use: Social History Observation [...] ast year? No Points 0 Interpretation Negative Problems Problem Type SNOMED Code ICD Code Onset Dates Problem Status W/U Status Risk Notes Problem Thrombocytopenia (298577984) Thrombocytopenia (D69.6) Active confirmed Problem 650581041 Diverticulitis (K57.92) Active confirmed Problem Paroxysmal atrial fibrillation (020090382) Paroxysmal atrial fibrillation (I48.0) Active confirmed Problem 825287984 Chronic systolic (congestive) heart failure (I50.22) Active confirmed Problem Atrial fibrillation (disorder) (83574096) Afib (I48.91) Active confirmed Problem 5500809 Psoriasis (L40.9) Active confirmed Problem 33685404 Osteoporosis (M81.0) Active confirmed Problem 05538022 Heart murmur, systolic (I38) Active confirmed Problem 388048185 Elevated LDL cholesterol level (E78.00) Active confirmed Problem Mitral valve disease (80280504) Mitral valve disease (I05.9) Active confirmed Problem 23624075 Severe mitral regurgitation (I34.0) Active confirmed Problem Patent foramen ovale (disorder) (971613044) PFO (patent foramen ovale) (Q21.1) Active confirmed Problem 1461941 Diverticulitis o f large intestine with abscess without bleeding (K57.20) Active confirmed Problem 974231609 Abnormal sense o f taste (R43.2) Active confirmed Vital Signs Blood pressure diastolic 58 mm Hg 11/07/2024 dani ght is up 2 pounds since 04-29-24 Height 72 in 11/07/2024 weight is up 2 pounds since 04-29-24 Blood pressure systolic 94 mm Hg 11/07/2024 danig ht is up 2 pounds since 04-29-24 Weight 157 lbs 11/07/2024 weight is up 2 pounds since 04-29-24 BMI 21.29 kg/m2 11/07/2024 weight is up 2 pounds since 04-29-24 Encounters Encounter Location Date Provider Diagnosis Kale Armenta MD [address] [place] [address] Drive [address] [place] [id number] 04/22/2024 Kale Armenta Elevated LDL cholesterol level E78.00 ; Thrombocytopenia D69.6 and Chronic systolic (congestive) heart failure I50.22 Kale Armenta MD [address] [place] [address] Drive [address] [place] [id number] 10/31/2024 Kale Armenta Elevated BUN R79.9 Kale Armenta MD [address] [place], [place] [id number] 04/29/2024 Kale Armenta Afib I48.91 ; Chroni c systolic (congestive) heart failure I50.22 ; Paroxysmal atrial fibrillation I48.0 ; Elevated BUN R79.9 ; Colon cancer screening Z12.11 and Depression screening Z13.31 Kale Armenta MD [address] [place] [address] Drive [address] [place] [id number] 11/07/2024 Kale Armenta Elevated BUN R79.9 ; Heart murmur, systolic I38 ; Chronic systolic (congestive) heart failure I50.22 and Paroxysmal atrial fibrillation I48.0 Assessments Encounter Date Diagnosis (ICD Code) Assessment Notes Treatment Notes Treatment Clinical Notes Section Notes 04/22/2024 Elevated LDL cholesterol level (ICD-10 - E78.00) 04/22/2024 Thrombocytopenia (ICD-10 - D69.6) 10/31/2024 Elevated BUN (ICD-10 - R79.9) 04/29/2024 Afib (ICD-10 - I48.91) doing well 04/29/2024 Chronic systolic (congestive) heart failure (ICD-10 - I50.22) stable, will continue current regiment 11/07/2024 Elevated BUN (ICD-10 - R79.9) repeat bun good, will continue to monitor 11/07/2024 Heart murmur, systolic (ICD-10 - I38) had his valve replaced and is doing great 04/22/2024 Chronic systolic (congestive) heart failure (ICD-10 - I50.22) 04/29/2024 Paroxysmal atrial fibrillation (ICD-10 - I48.0) not having any problems, will continue current regiment 11/07/2024 Chronic systolic (congestive) heart failure (ICD-10 - I50.22) stable, followed by cardiology, will continue current tegiment 04/29/2024 Elevated BUN (ICD-10 - R79.9) is secondary to entresto, will continue to monitor, pending future labs 11/07/2024 Paroxysmal atrial fibrillation (ICD-10 - I48.0) stable, will continue current regiment, follow ed by cardiology 04/29/2024 Colon cancer screening (ICD-10 - Z12.11) guaiac negative 04/29/2024 Depression screening (ICD-10 - Z13.31) negative screen Plan Of Treatment Pending Test Test Name Order Date Occult Blood, Stool, Guaiac 04/19/2021 ECHO EXAM OF HEART 03/06/2015 Next Appt Details Provider Name:Kale Araujo ier, 04/25/2025 08:00:00 AM, [address], [address], [place], [place], [phone], Provider Name:Kale Araujo ier, 05/05/2025 08:30:00 AM, [address], [address], [place], [place], [phone], Insurance Providers Payer Name Payer Address Payer Phone Subscriber Number Group Number Insured Name Patient Relationship to Insured Coverage Start Date Coverage End Date MEDICARE NHIC [address] [place] [address] [id number] Speedy Hernandez Self - patient is the insured [employer] [facility] [address] [place], [place] [phone] [id number] Speedy Hernandez Self - patient is the insured Medical (General) History Medical History History ICD Code still refuses colonoscopy th inking about it 2014 still refuses colonoscopy;09/2020 - wants to wait until Spring w/Dr. Cobb 05/13/13 - bone density - osteoporsis 01/09/2020 pt refused to do cologuard still refusing colonoscopy and cologard 2021 cath for mitral disease 2020 with normal coronary arteries refuses cologard 2021
== END ==
LOC: HO.CARD 10:36
PROVIDERS: PCP Internal Medicine; Visit Provider Internal Medicine
DX: Z98.890 Other specified postprocedural states (principal)
CPT/HCPCS: 93306

== ENCOUNTER → 2025-03-10 10:41 | Outpatient (BNV) | payer MEDICARE, BC, SELFPAY | PROVIDERS: PCP Internal Medicine; Visit Provider Internal Medicine Cardiovascular Disease | DX: I51.7 Cardiomegaly (principal); Z95.2 Presence of prosthetic heart valve | CPT/HCPCS: 93306 ==

== ENCOUNTER 2025-03-22 12:46 | Outpatient (AMB) | payer MEDICARE, BC, SELFPAY ==
[2025-03-22 12:52] VITALS: BP 122/64; PULSE 55; BMI 21.5
--- NOTE | 2025-03-22 12:52 | A.OFFVIS_ITS ---
Vital Signs 03/22/25 12:52 Height 6 ft Weight 158 lb 11.725 oz BMI 21.5 BP 122/64 Blood Pressure Location Lt brachial Position Sitting Pulse 55 Pulse Source Monitor Intake Visit Reasons: 1 yr f/up Allergies No Known Allergies [No Known Allergies*] Allergy (Verified 10/12/23 10:51) Medication List - Last Reconciled 03/22/25 by Dandre Dobbins MD amoxicillin 2,000 mg (4 x 500 mg) PO ONCE apixaban (Eliquis) 5 mg PO BID calcipotriene 0.005% 1 appl topical DAILY calcium carbonate 600 mg PO DAILY fluocinonide-emollient 0.05 % 1 appl topical BID metoprolol succinate ER (Toprol XL) 25 mg PO DAILY multivitamin 1 tab PO DAILY sacubitril-valsartan 24-26 mg (Entresto) 1 tab PO BID 90 days spironolactone 25 mg PO DAILY HPI Comments Details: Speedy returns for follow-up regarding mitral regurgitation, atrial fibrillation and cardiomyopathy. Overall, he feels good. No cardiac symptoms whatsoever. [facility] Medical History Myxomatous mitral valve Nonrheumatic mitral valve regurgitation Osteoporosis Pulmonary hypertension Vitamin D deficiency Surgical History History of mitral valve repair (~02/10/22) History of cardiac catheterization (~10/2021) Family History Father No problems noted. Mother No problems noted. Social History Household Members: Family Housing: House Do you presently have visiting nurse or other home services: No Patient Tobacco Use Status: Never used Tobacco Second Hand Smoke Exposure: No Advance Directives Date on File: 11/13/21 service: No Review of Systems Const Denies weakness ENT Denies dizziness Card Denies chest pain, Denies chest pain with activity, Denies syncope, Denies rapid heart rate, Denies pedal edema, Denies edema, Denies leg edema, Denies lightheadedness, Denies palpitations, Denies dyspnea, Denies dyspnea on exertion and Denies orthopnea Resp Denies cough, Denies dyspnea and Denies dyspnea on exertion GI Denies hematochezia and Denies change in stool character Musc Denies abnormal gait, Denies muscle cramps, Denies muscle weakness, Denies numbness, Denies radiating pain into limb and Denies tingling Neuro Denies abnormal gait, Denies dizziness, Denies syncope, Denies numbness, Denies tingling and Denies weakness Endo Denies palpitations Physical Exam Vital Signs: Last Vital Signs Pulse 55 03/22/25 12:52 BP 122/64 03/22/25 12:52 BMI result Body Mass Index 21.5 Const General: comfortable and no acute distress Orientation/consciousness: patient oriented x3 HEENT Other: Unremarkable Head: Yes normal to inspection Neck Neck: Yes normal visual inspection Chest Chest palpation & inspection: normal inspection of the chest Resp Auscultation: clear to auscultation bilaterally Cardio Palpation: normal PMI Heart sounds: S1 normal heart sound present, S2 normal heart sound present, no gallops, no murmurs and no rubs GI Palpation (GI): Soft to palpation Back/Spine/Pelvis Other: unremarkable Skin General skin exam: no rashes or lesions noted Neuro General: patient oriented x3 Extrem General: Yes normal to inspection Psych Mental Status: mental status grossly normal Office Procedures EKG Details: EKG with sinus bradycardia at 55/Min; incomplete right bundle-branch pattern; no significant ST-[place] changes; [place] [address]-Qetekkuldzlksbbza, Complete Assessment & Plan Assessment & Plan (1) Status post mitral valve repair: Code(s): Z98.890 - Other specified postprocedural states Category: Surgical Plan: Status post mitral valve repair 01/2022; at that time he also had PFO closure. In the recent echocardiogram, normally functioning mitral valve, status post repair. Cardiac catheterization did not show any significant coronary disease. Infective endocarditis prophylaxis before any dental procedures. (2) Chronic systolic (congestive) heart failure: Code(s): I50.22 - Chronic systolic (congestive) heart failure Category: Medical Plan: In the recent echocardiogram, LVEF is 45-50%. Clinically, no symptoms or signs of congestive heart failure. He is on beta-blockers, Entresto, spironolactone. (3) PAF (paroxysmal atrial fibrillation): Code(s): I48.0 - Paroxysmal atrial fibrillation Category: Medical Plan: During mitral valve surgery, he also underwent left atrial appendage ligation and pulmonary vein isolation/ablation. Remains on Eliquis. Advised him to do some labs but he states he already has request from PCP and he plans to do them in March. Plan Discussion Notes I discussed with the patient the improved status of his cardiac function and valve post-surgical intervention. We reviewed the importance of regular blood work every six months to manage his medication regimen safely. Our conversation included the plan to complete overdue labs in March. Additionally, we talked about potential implications and the necessity for adjustments in treatment contingent on results. We highlighted the need to prioritize routine checks, and the patient is agreeable to this plan. Patient was informed and verbally consented to the use of an ambient scribe for clinic note documentation during this visit. Patient Instructions: - Complete blood work every six months. Get them done now as ordered by PCP. - Ensure voicemail is set up for easy communication about medical needs. - Continue all current treatments unless directed otherwise. - Attend appointments for follow-up to discuss blood work results. Coding Level of Care Code Est Pt Level 4 (85559) Complex EM visit Add On G2211 Diagnoses Status post mitral valve repair Z98.890 Chronic systolic (congestive) heart failure I50.22 PAF (paroxysmal atrial fibrillation) I48.0 CPT Codes EKG - CPT: 73201-[id number], Complete ([id number])
--- OUTSIDE RECORDS SUMMARY | 2025-03-22 15:02 | XMS_ITS ---
Author Organization Kale Armenta MD Address [address] [place] [phone] Care Team Providers Care Wood Last Maker Name Role Phone Kale Armenta Primary Care Provider [phone] Results Component Value Reference Range Notes Blood Urea Nitrogen Reviewed date:10/31/2024 05:24:29 PM Interpretation: Performing Lab:[facility], [address] [place] [phone] Notes/Report: Blood Urea Nitrogen 21 9-16 mg/dL Creatinine Reviewed date:10/31/2024 05:20:56 PM Interpretation: Performing Lab:[facility], [address] [place] [phone] Notes/Report: Creatinine 1.16 0.5-1.4 mg/dL Estimated Glomerular Filt Rate > 60 Chronic Kidney Disease: Estimated GFR < 60 mL/min/1.73m2 Severe Kidney Disease: Estimated GFR < 15 mL/min/1.73m2 REASON FOR VISIT BUN,CREATININE Encounters Encounter Location Date Provider Diagnosis Kale Armenta MD [address] [place] [id number] 10/31/2024 Kale Armenta Elevated BUN R79.9 Assessments Encounter Date Diagnosis (ICD Code) Assessment Notes Treatment Notes Treatment Clinical Notes Section Notes 10/31/2024 Elevated BUN (ICD-10 - R79.9) Plan Of Treatment Next Appt Details Provider Name:Kale Araujo mariliar, 04/25/2025 08:00:00 AM, [address], [address], [place], [place], [phone], Provider Name:Kale Araujo mariliar, 05/05/2025 08:30:00 AM, [address], [address], [place], [place], [phone], Progress Notes * Speedy HERNANDEZDOB: [birth year] (74 yo M)Acc No.[id number]:10/31/2024 Progress Note Patient:?Speedy HERNANDEZ Provider:?Kale Armenta MD :1950???Age:73 Y???Sex:Male Nathen e:10/31/2024 Address:[address] [place], [place] [phone] Subjective: * Chief Complaints: * ???1. BUN,CREATININE. * Medical History:? Objective: * Vitals:? Assessment: * Assessment: 1.?Elevated BUN - R79.9 (Dari ram)??? Plan: * Treatment: * Procedure Codes:?09258 VENIP UNCT, ROUTINE* * * The named appointment provid er may or may not be the originator of this progress note, and it is not deemed complete until electronically signed by the appointment provider. Sign off status: Pending * Provider:?Kale Armenta MD Date:?1 01/01/2024 Generated for Adolph schuster/Zander/Tristenitting on:?03/22/2025 03:02 PM EDT
--- OUTSIDE RECORDS SUMMARY | 2025-03-22 15:03 | XMS_ITS | Clinical Summary ---
Author Organization [facility] Address [address] [place] [address] Care Team Providers Care Guide Dog Instructor Name Role Phone Unavailable Primary Care Provider [...] age to complete this topic Insurance Medicare [facility]
--- OUTSIDE RECORDS SUMMARY | 2025-03-22 15:03 | XMS_ITS | Patient Health Record ---
Author Organization Kale Armenta MD Address [address] [place], [place] [phone] Care Team Providers Care Knitting Machine Mechanic Name Role Phone Kale Armenta Primary Care Provider [phone] Allergies No Known Allergies Results Component Value Reference Range Notes Complete Blood Count Auto Di ff Reviewed date:04/22/2024 04:16:21 PM Interpretation: Performing Lab:[facility], [address] [place] [phone] Notes/Report: White Blood Count 5.0 4.8-10.8 X10*3/uL [...] NRBC Abs Auto 0.000 0.0-0.012 X10*3/uL Comprehensive [place]. Panel Fa st Reviewed date:04/26/2024 04:11:59 PM Interpretation: Performing Lab:[facility], [address] [place] [phone] Notes/Report: Sodium 140 135-145 mmol/L Potassium 4.4 3.3-5.1 mmol/L Chloride 106 96-108 mmol/L Carbon Dioxide 28 22-29 mmol/L Anion Gap 10 12-20 Blood Urea Nitrogen 27 9-16 mg/dL Creatinine 0.96 0.5-1.4 mg/dL Estimated Glomerular Filt Rate > 60 NOTE: For -Afghan individuals, multiply the result by 1.210. Chronic [...] Panel Reviewed date:04/22/2024 12:33:16 PM Interpretation: Performing Lab:[address] [phone] Notes/Report: Triglycerides 88 <150 mg/dL Desirable Triglyceride: [...] (Free>4and<10) Reviewed date:04/22/2024 12:33:57 PM Interpretation: Performing Lab:[address] [phone] Notes/Report: PSA,Total (Free>4and<10) 0.83 0.00-4.00 ng/mL A [...] t Reviewed date:04/26/2024 04:30:37 PM Interpretation: Performing Lab:[address] [phone] Notes/Report: [id number] 0730 Urine, Clean Catch Color Urine Yellow Appearance Urine Clear PH 6.5 5.0-9.0 Glucose Urine UA Negative Negative mg/dL Urine Blood Negative Negative Specific [place] - Urine 1.025 1.005-1.025 Urine Protein Negative Neg-Trace mg/dL Urine Ketones Negative Negative mg/dL Nitrite Urine Negative Negative Leukocyte Esterase Urine Negative Negative RBC Urine 0-2 0-2 /HPF WBC Urine 0-5 0-5 /HPF Squamous Epithelial Cell Urine 0-2 0-2 /HPF Bacteria Urine None Seen None Seen Hyaline Casts Urine 0-2 0-2 /LPF Blood Urea Nitrogen Reviewed date:10/31/2024 05:24:29 PM Interpretation: Performing Lab:[facility], [address] [place] [phone] Notes/Report: Blood Urea Nitrogen 21 9-16 mg/dL Creatinine Reviewed date:10/31/2024 05:20:56 PM Interpretation: Performing Lab:[facility], [address] [place] [phone] Notes/Report: Creatinine 1.16 0.5-1.4 mg/dL Estimated Glomerular Filt Rate > 60 Chronic Kidney Disease: Estimated GFR < 60 mL/min/1.73m2 Severe Kidney Disease: Estimated GFR < 15 mL/min/1.73m2 Basic Metabolic Panel Reviewed date:03/24/2024 05:39:50 PM Interpretation: Performing Lab:[facility], [address] [place] [phone] Notes/Report: Sodium 141 135-145 mmol/L Potassium 4.6 3.3-5.1 mmol/L Chloride 106 96-108 mmol/L Carbon Dioxide 30 22-29 mmol/L Anion Gap 10 12-20 Blood Urea Nitrogen 21 9-16 mg/dL Creatinine 1.10 0.5-1.4 mg/dL Estimated Glomerular Filt Rate > 60 NOTE: For -Afghan individuals, multiply the result by 1.210. Chronic Kidney Disease: Estimated GFR < 60 mL/min/1.73m2 Severe Kidney Disease: Estimated GFR < 15 mL/min/1.73m2 Glucose Random 65 60-115 mg/dL Calcium 9.6 8.4-10.2 mg/dL B Type Natriuretic Peptide Reviewed date:03/24/2024 05:39:33 PM Interpretation: Performing Lab:[facility], [address] [facility], [place] [address] Notes/Report: B Type Natriuretic Peptide 133 <100 [...] Orally Active Zoryve 0.3 % 1 application Access Services Librarian ally Once a day Active Spironolactone 25 MG 1 tablet Orally Active Immunizations Vaccine Route Administration Date Status Comme nts Flu Vaccine Unknown 08/30/2013 Administered Social Secu [employer] [place] Work Flu Vaccine Unknown 09/05/2014 Administered Work [employer] office Fluarix Quadrivalent Unknown 09/13/2018 Administered CV [...] Status W/U Status Risk Notes Problem Thrombocytopenia (291286603) Thrombocytopenia (D69.6) Active confirmed Problem 065738059 Diverticulitis (K57.92) Active confirmed Problem Paroxysmal atrial fibrillation (252531159) Paroxysmal atrial fibrillation (I48.0) Active confirmed Problem 068587571 Chronic systolic (congestive) heart failure (I50.22) Active confirmed Problem Atrial fibrillation (disorder) (78425981) Afib (I48.91) Active confirmed Problem 8021773 Psoriasis (L40.9) Active confirmed Problem 66838955 Osteoporosis (M81.0) Active confirmed Problem 85966377 Heart murmur, systolic (I38) Active confirmed Problem 250909837 Elevated LDL cholesterol level (E78.00) Active confirmed Problem Mitral valve disease (84138351) Mitral valve disease (I05.9) Active confirmed Problem 83087328 Severe mitral regurgitation (I34.0) Active confirmed Problem Patent foramen ovale (disorder) (049810453) PFO (patent foramen ovale) (Q21.1) Active confirmed Problem 9315450 Diverticulitis o f large intestine with abscess without bleeding (K57.20) Active confirmed Problem 634857820 Abnormal sense o f taste (R43.2) Active [...] Location Date Provider Diagnosis Kale Armenta MD [address] [place] [address] Drive [address] [place] [phone] 04/22/2024 Kale Armenta Elevated LDL cholesterol level E78.00 ; Thrombocytopenia D69.6 and Chronic systolic (congestive) heart failure I50.22 Kale Armenta MD [address] [place] [address] Drive [address] [place] [id number] 10/31/2024 Kale Armenta Elevated BUN R79.9 Kale Armenta MD [address] [place], [place] [phone] 04/29/2024 Kale Armenta Afib I48.91 ; Chroni c systolic (congestive) heart failure I50.22 ; Paroxysmal atrial fibrillation I48.0 ; Elevated BUN R79.9 ; Colon cancer screening Z12.11 and Depression screening Z13.31 Kale Armenta MD [address] [place] [address] Drive [address] [place] [phone] 11/07/2024 Kale Armenta Elevated BUN R79.9 ; [...] 08:00:00 AM, [address], [address], [place], [place], [phone], Provider Name:Kale Araujo ier, 05/05/2025 08:30:00 AM, [address], [address], [place], [place], [phone], Insurance Providers Payer Name Payer Address Payer Phone Subscriber Number Group Number Insured Name Patient Relationship to Insured Coverage Start Date Coverage End Date MEDICARE NHIC MELANIE [address] [place] [address] [id number] Speedy Hernandez Self - patient is the insured [employer] [facility] [address] [place], [place] [id number] Speedy Hernandez Self - patient is [...]
--- OUTSIDE RECORDS SUMMARY | 2025-03-22 15:03 | XMS_ITS ---
Author Organization Kale Armenta MD Address [address] [place] [phone] Care Team Providers Care Knitting Machine Operator Helper Name Role Phone Kale Armenta Primary Care Provider [phone] Allergies No Known Allergies REASON FOR VISIT [...] Orally Active Zoryve 0.3 % 1 application Bench Technician ally Once a day Active Metoprolol Succinate [...] Location Date Provider Diagnosis Kale Armenta MD [address] [place] [address] [place] [phone] 11/07/2024 Kale Armenta Elevated BUN R79.9 ; [...] Details Provider Name:Kale rizvi, 04/25/2025 08:00:00 AM, [address] [place] [address], Suite [facility], [place], [place], [phone], Provider Name:Kale rizvi, 05/05/2025 08:30:00 AM, [address] [place] [address], Suite [facility], [place], [place], [phone], Progress Notes * Speedy HERNANDEZDOB: [birth year] (73 yo M)Acc No.[id number]:11/07/2024 Progress Notes Patient:?Speedy Hernandez Provider:?Kale Armenta MD :1950???Age:73 Y???Sex:Male Nathen e:11/07/2024 Address:[address] [place], [place] [address] , [facility] d[address]las [id number] Subjective: * Chief Complaints: * ???6 MO [...] MD Date:?1 01/08/2024 Generated for Adolph schuster/Zander/Tristenitting on:?03/22/2025 03:02 PM EDT History and Physical Notes * HPI [...]
--- OUTSIDE RECORDS SUMMARY | 2025-03-22 15:04 | XMS_ITS ---
Author Organization Kale Armenta MD Address [address] [place] [phone] Care Team Providers Care Security Specialist Name Role Phone Kale Armenta Primary Care Provider REASON FOR VISIT review labs Medications Medication SIG (Take, Route, Frequency, Duration) Notes Start Date End Date Status Fluocinonide Emulsified Base 0.05 % 1 application Externally Twice a day Active Eliquis 5 MG TAKE 1 TABLET TWICE DAILY DIRECTED Active Spironolactone 25 MG 1 tablet Orally Active Zoryve 0.3 % 1 application Automotive Product Specialist ally Once a day Active Metoprolol Succinate [...] Date Provider Diagnosis Kale Armenta MD [address] [place], [place] [phone] 04/29/2024 Kale Armenta Afib I48.91 ; Chroni [...] Details Follow Up: 6 Months, Reason: Provider Name:Klae Araujo iekyle, 04/25/2025 08:00:00 AM, [address], [address], [place], [place], [phone], Provider Name:Kale Villalobos Olgacarol dmitri, 05/05/2025 08:30:00 AM, [address] [facility], [address], [place], [place], [phone], Progress Notes * Speedy HERNANDEZDOB: [birth year] (73 yo M)Acc No.[id number]:04/29/2024 Patient:?Speedy Hernandez Provider:?aKle Armenta MD :1950???Age:73 Y???Sex:Male Nathen e:04/29/2024 Address:[address] [place], [place] [phone] Subjective: * Chief Complaints: * ???Review labs [...] ?PSA,Total (Free>4and<10) 0.83 0.00-4.00 - ng/mL ???Lab:Comprehensive [place]. P nuno Fast (Order 04/22/2024) (Collection Date [...] Armenta MD Date:?0 04/29/2024 Generated for Adolph schuster/Zander/eTsilsmgrady on:?03/22/2025 03:03 PM EDT History and Physical Notes * [...] Total Score: 0 Interpretation and Intervention Depression Magrarette reeder Findings: Negative Follow-Up for Depression: : [...]
== END 2025-03-22 13:12 | disposition home or self-care (01) ==
LOC: HO.HCS 12:46
PROVIDERS: PCP Internal Medicine; Visit Provider Internal Medicine
DX: Z98.890 Other specified postprocedural states (principal); I50.22 Chronic systolic (congestive) heart failure; I48.0 Paroxysmal atrial fibrillation
CPT/HCPCS: 93010; 99214; G2211

== ENCOUNTER → 2025-03-22 12:46 | Outpatient (BNVA) | payer MEDICARE, BC, SELFPAY | PROVIDERS: PCP Internal Medicine; Visit Provider Internal Medicine | DX: I48.0 Paroxysmal atrial fibrillation (principal); I42.9 Cardiomyopathy, unspecified; I34.0 Nonrheumatic mitral (valve) insufficiency; I50.22 Chronic systolic (congestive) heart failure; Z98.890 Other specified postprocedural states | CPT/HCPCS: 93005; 99212 ==

== ENCOUNTER 2025-04-25 10:30 | Outpatient (REF) | payer MEDICARE, BC, SELFPAY ==
[2025-04-25 10:35] LABS: MANUAL DIFF FLAG NO
[2025-04-25 11:02] LABS: Basophils Absolute Auto 0.1 X10*3/uL (0.0-0.2); Basophils Percent Auto 1.5 % (0-2); Eosinophils Absolute Auto 0.3 X10*3/uL (0.0-0.4); Eosinophils Percent Auto 6.2 % (0-4); Hemoglobin 14.8 g/dl (14.0-18.0); Imm Gran Abs Auto 0.02 X10*3/uL (0.00-0.03); Imm Gran Pct Auto 0.4 % (0.0-0.4); Lymphocytes Absolute Auto 1.7 X10*3/uL (1.2-4.9); Mean Corpuscular HGB Conc 32.2 g/dl (31.0-36.0); Mean Corpuscular Hemoglobin 28.1 pg (27.0-33.0); Mean Corpuscular Volume 87.3 fL (80.0-98.0); Mean Platelet Volume 10.7 fL (9.4-12.4); Monocytes Absolute Auto 0.7 X10*3/uL (0.1-1.2); Monocytes Percent Auto 12.7 % (2-11); Neutrophils Absolute Auto 2.6 x10*3/uL (2.0-8.3); Neutrophils Percent Auto 48.2 % (45-73); Platelet Count 165 X10*3/uL (160-400); Red Blood Count 5.27 X10*6/uL (4.60-5.80); Red Cell Distribution Width 13.9 % (11.0-16.0); White Blood Count 5.4 X10*3/uL (4.8-10.8)
[2025-04-25 11:04] LABS: Appearance Urine Clear; Color Urine Yellow; Glucose Urine UA Negative (Negative); Leukocyte Esterase Urine Negative (Negative); Nitrite Urine Negative (Negative); Specific Gravity - Urine 1.025 (1.005-1.025); Urine Blood Negative (Negative); Urine Ketones Trace mg/dL (Negative); Urine Protein Negative (Neg-Trace)
[2025-04-25 11:08] LABS: Bacteria Urine None Seen (None Seen); Hyaline Casts Urine 0-2 /LPF (0-2); RBC Urine 0-2 /HPF (0-2); Squamous Epithelial Cell Urine 0-2 /HPF (0-2); WBC Urine 0-5 /HPF (0-5)
--- OUTSIDE RECORDS SUMMARY | 2025-04-25 11:16 | XMS_ITS ---
Author Organization Kale Armenta MD Address [address] [place] [phone] Care Team Providers Care Flight Attendant Inflight Services Name Role Phone Kale Armenta Primary Care Provider [phone] Results Component Value Reference Range Notes Blood Urea Nitrogen Reviewed date:10/31/2024 05:24:29 PM Interpretation: Performing Lab:[facility], [address] [place] [phone] Notes/Report: Blood Urea Nitrogen 21 9-16 mg/dL Creatinine Reviewed date:10/31/2024 05:20:56 PM Interpretation: Performing Lab:[facility], [address] [place] [phone] Notes/Report: Creatinine 1.16 0.5-1.4 mg/dL Estimated Glomerular Filt Rate > 60 Chronic Kidney Disease: Estimated GFR < 60 mL/min/1.73m2 Severe Kidney Disease: Estimated GFR < 15 mL/min/1.73m2 REASON FOR VISIT BUN,CREATININE Encounters Encounter Location Date Provider Diagnosis Kale Armenta MD [address] [place] [phone] 10/31/2024 Kale Armenta Elevated BUN R79.9 Assessments Encounter Date Diagnosis (ICD Code) Assessment Notes Treatment Notes Treatment Clinical Notes Section Notes 10/31/2024 Elevated BUN (ICD-10 - R79.9) Plan Of Treatment Next Appt Details Provider Name:Kalefrancisca Araujo ier, 05/12/2025 01:30:00 PM, [address], [address], [place], [place], [phone], Progress Notes * Speedy HERNANDEZDOB: [birth year] (74 yo M)Acc No.[id number]:10/31/2024 Progress Note Patient:?Speedy HERNANDEZ Abe Provider:?Kale Armenta MD :1950???Age:73 Y???Sex:Male Nathen e:10/31/2024 Address:[address] [place], [place] [phone] Subjective: * Chief Complaints: * ???1. BUN,CREATININE. * Medical History:? Objective: * Vitals:? Assessment: * Assessment: 1.?Elevated BUN - R79.9 (Dari ram)??? Plan: * Treatment: * Procedure Codes:?24324 VENIP UNCT, ROUTINE* * * The named appointment provid er may or may not be the originator of this progress note, and it is not deemed complete until electronically signed by the appointment provider. Sign off status: Pending * Provider:?Kale Armenta MD Date:?1 01/01/2024 Generated for Adolph schuster/Zander/eTransmitting on:?04/25/2025 11:16 AM EDT
[2025-04-25 11:43] LABS: Alanine Aminotransferase 17 U/L (0-40); Albumin Level 4.4 g/dL (3.5-5.0); Alkaline Phosphatase 60 U/L (39-117); Anion Gap 12 (12-20); Aspartate Amino Transferase 27 U/L (5-37); Bilirubin Total 0.8 mg/dL (0.0-1.0); Blood Urea Nitrogen 21 mg/dL (9-16); Calcium 9.2 mg/dL (8.4-10.2); Carbon Dioxide 28 mmol/L (22-29); Chloride 107 mmol/L (96-108); Cholesterol 196 mg/dL (<200); Estimated Glomerular Filt Rate > 60; Glucose Fasting 91 mg/dL (60-99); HDL Cholesterol 44 mg/dL (>40); LDL Cholesterol Calculated 130 mg/dL (<100); Potassium 4.5 mmol/L (3.3-5.1); Sodium 142 mmol/L (135-145); Total Protein 7.1 g/dL (6.5-8.0); Triglycerides 114 mg/dL (<150)
== END 2025-04-25 10:31 | disposition home or self-care (01) ==
LOC: HO.LNP 10:30
PROVIDERS: Visit Provider Internal Medicine
DX: E78.00 Pure hypercholesterolemia, unspecified (principal); D69.6 Thrombocytopenia, unspecified; Z12.5 Encounter for screening for malignant neoplasm of prostate; I50.22 Chronic systolic (congestive) heart failure
CPT/HCPCS: 80053; 80061; 81001; 84153; 85025